=== PATIENT | male | born 1940 | race Caucasian/White ===

== ENCOUNTER 2017-03-18 10:13 | Emergency (ER) | payer MEDICARE ==
[~2017-03-18] VITALS: Ht 177.8 cm; Wt 111.1 kg
[~2017-03-18 10:13] MED LIST: LEVOFLOXACIN750 MG; PROAIR HFA INH8.5 GM
[2017-03-18] MEDS ORDERED: METOPROLOL TART25 MG PO (11:29)
[2017-03-18] MEDS ORDERED: FUROSEMIDE40 MG PO (11:29)
--- NOTE | 2017-03-18 12:42 | Diagnostic Imaging Report ---
PROCEDURE: A single AP view of the chest. COMPARISON: None. INDICATIONS: SHORTNESS OF BREATH FINDINGS: Lines/tubes: None. Lungs: The lungs are well inflated and clear. There is no evidence of pneumonia or pulmonary edema. Pleura: There is no pleural effusion or pneumothorax. Heart and mediastinum: The heart and the mediastinum are unremarkable. Bones: No acute bony abnormality. IMPRESSION: 1. No acute cardiopulmonary disease. Dictated by: Aguilar Henley M.D. on 03/18/2017 at 12:50 Electronically approved by: Aguilar Henley M.D. on 03/18/2017 at 12:50
[2017-03-18 13:07] LABS: BASOPHILS # (AUTO) 0.1 (0.0-0.1); BASOPHILS % 0.7 % (0.0-1.0); EOSINOPHILS # (AUTO) 0.3 (0.0-0.4); EOSINOPHILS % 3.3 % (0.0-6.0); HEMATOCRIT 48.9 % (38.2-49.6); HEMOGLOBIN 16.5 g/dL (14.0-18.0); LYMPHOCYTES # (AUTO) 2.4 (1.0-3.2); LYMPHOCYTES % 23.7 % (18.0-39.1); MEAN CORPUSCULAR HEMOGLOBIN 31.4 pg (28-32); MEAN CORPUSCULAR HGB CONC 33.7 g/dL (31-35); MONOCYTES # (AUTO) 0.7 (0.2-0.8); MONOCYTES % 6.8 % (4.4-11.3); NEUTROPHILS # (AUTO) 6.4 (2.1-6.9); NEUTROPHILS % 64.6 % (38.7-80.0); PLATELET COUNT 197 x10e3/uL (140-360); RED BLOOD COUNT 5.26 x10e6/uL (4.3-5.7)
[2017-03-18 13:36] LABS: ALANINE AMINOTRANSFERASE 25 IU/L (0-55); ALBUMIN 3.6 g/dL (3.5-5.0); ALBUMIN/GLOBULIN RATIO 0.9 (0.8-2.0); ALKALINE PHOSPHATASE 66 IU/L (40-150); ANION GAP 12.5 mmol/L (8-16); BLOOD UREA NITROGEN 41 mg/dL (7-26); BUN/CREATININE RATIO 37 (6-25); CALCIUM 9.4 mg/dL (8.4-10.2); CARBON DIOXIDE 27 mmol/L (22-29); CHLORIDE 108 mmol/L (98-107); CREATININE, SERUM 1.12 mg/dL (0.72-1.25); EST GLOMERULAR FILTRATION RATE > 60 ML/MIN (60-); GLUCOSE 96 mg/dL (74-118); POTASSIUM 4.5 mmol/L (3.5-5.1); SODIUM 143 mmol/L (136-145)
[2017-03-18] MEDS ORDERED: MORPHINE SULFATE 2 MG/ML SYR IV STA (14:45)
[2017-03-18] MEDS ORDERED: ONDANSETRON HCL INJ 2 MG/ML VIAL IV STA (14:45)
[2017-03-18] MEDS ORDERED: SODIUM CHLORIDE 0.9% 50ML 50 ML ONE (15:02)
[2017-03-18] MEDS ORDERED: IOPAMIDOL 370 MG/ML 200 ML INFUS..BTL INJ ONE (15:02)
--- NOTE | 2017-03-18 16:17 | Diagnostic Imaging Report ---
PROCEDURE: CT scan of the chest WITH intravenous contrast, using a pulmonary embolus protocol. TECHNIQUE: The chest was scanned utilizing a multidetector helical scanner from the lung apex through the level of the adrenal glands after the IV administration of 74 cc of Isovue 370. Coronal and sagittal multiplanar reformations were obtained. COMPARISON: None. INDICATIONS: SWELLING LEG FINDINGS: Lines/tubes: None. Pulmonary Arteries: Technically adequate examination with no evidence of pulmonary embolus. The main pulmonary artery is enlarged, measuring 3.4 cm in caliber. Lungs and Airways: Subsegmental atelectasis and scarlike opacities in the lung bases. No focal consolidation. No focal consolidation. Pleura: The pleural spaces are clear. Heart and mediastinum: No significant mediastinal, hilar or axillary lymphadenopathy is seen. The heart is mildly enlarged. No significant pericardial effusion. Atherosclerotic calcifications of the coronary arteries and thoracic aorta Soft tissues: Normal. Abdomen: Limited contrast-enhanced views of the upper abdomen. Presumed subcentimeter cyst of the right hepatic lobe (series 2, image 111). There are atherosclerotic calcifications of the abdominal aorta and its branches. Bones: Multilevel degenerative changes of the thoracic spine. IMPRESSION: No pulmonary embolus. Dictated by: Aguilar Henley M.D. on 03/18/2017 at 16:25 Electronically approved by: Aguilar Henley M.D. on 03/18/2017 at 16:25
[2017-03-18] MEDS ORDERED: CLINDAMYCIN PHOS 900MG/ D5W 50 50 ML IV STA (17:05)
[2017-03-18 17:42] VITALS: BP 153/69
== END 2017-03-18 17:55 | disposition home or self-care (01) ==
LOC: ER 10:13
DX: L03.116 Cellulitis of left lower limb (principal)
CPT/HCPCS: 36415; 71010; 71260; 80053; 83880; 85025; 85379; 87040; 93005; 93970; 96374; 99284; J2270; J2405; Q9967

== ENCOUNTER 2017-05-04 05:28 | Inpatient (IN) | payer MEDICARE ==
[~2017-05-04] VITALS: Ht 175.3 cm; Wt 108.0 kg
[~2017-05-04 05:28] MED LIST changes: +FUROSEMIDE40 MG PO; +METOPROLOL TART25 MG PO
--- OUTSIDE RECORDS SUMMARY | 2017-05-04 05:30 | XMS REPORT ---
Author Author [facility] Address Unknown Phone Unavailable Care Team Providers Care Auto Hauler Name Role Phone LUCA ROYAL Unavailable Unavailable Problems This patient has no known problems. Allergies, Adverse Reactions, Alerts This patient has no known allergies or adverse reactions. Medications This patient has no known medications. Results Test Description Test Time Test Comments Text Results Atomic Results Result Comments CT CHEST W [place] [address] Patient Name: MAYELA NAVA MR #: [id number] : 1940 Age/Sex: 76/M Req #: [id number] Adm Physician: Ordered by: ADRIEN KEYS HARNESS FITTER Report #: [id number] Location: ER Room/Bed: Procedure: [id number] CT/CT CHEST W Exam Date: 03/18/17 Exam Time: 1440 REPORT STATUS: Signed PROCEDURE: CT scan of the chest WITH intravenous contrast, using a pulmonary embolus protocol. TECHNIQUE: The chest was scanned utilizing a multidetector helical scanner from the lung apex through the level of the adrenal glands after the IV administration of 74 cc of Isovue 370. Coronal and sagittal multiplanar reformations were obtained. COMPARISON: None. INDICATIONS: SWELLING LEG FINDINGS: Lines/tubes: None. Pulmonary Arteries: Technically adequate examination with no evidence of pulmonary embolus. The main pulmonary artery is enlarged, measuring 3.4 cm in caliber. Lungs and Airways: Subsegmental atelectasis and scarlike opacities in the lung bases. No focal consolidation. No focal consolidation. Pleura: The pleural spaces are clear. Heart and mediastinum: No significant mediastinal, hilar or axillary lymphadenopathy is seen. The heart is mildly enlarged. No significant pericardial effusion. Atherosclerotic calcifications of the coronary arteries and thoracic aorta Soft tissues : Normal. Abdomen: Limited contrast-enhanced views of the upper abdomen. Presumed subcentimeter cyst of the right hepatic lobe (series 2, image 111). There are atherosclerotic calcifications of the abdominal aorta and its branches. Bones: Multilevel degenerative changes of the thoracic spine. IMPRESSION: No pulmonary embolus. Dictated by: Francisca Henley M.D. on 03/18/2017 at 16:25 Electronically approved by: Francisca Henley M.D. on 03/18/2017 at 16:25 Dictated By: FRANCISCA HENLEY MD 24 Transcribed By: ESTHER on 03/18/171624 COPY TO: ADRIEN KEYS NP CHEST SINGLE (NOT PORTABLE) [place] [address] Patient Name: MAYELA NAVA MR #: [id number] : 1940 Age/Sex: 76/M Req #: [id number] Adm Physician: Ordered by: LUCA ROYAL MD Report #: [id number] Location: ER Room/Bed: Procedure: [id number] DX/CHEST SINGLE (NOT PORTABLE) Exam Date: Exam Time: REPORT STATUS: Signed PROCEDURE: A single AP view of the chest. COMPARISON: None. INDICATIONS: SHORTNESS OF BREATH FINDINGS: Lines/tubes: None. Lungs: The lungs are well inflated and clear. There is no evidence of pneumonia or pulmonary edema. Pleura: There is no pleural effusion or pneumothorax. Heart and mediastinum: The heart and the mediastinum are unremarkable. Bones: No acute bony abnormality. IMPRESSION: 1. No acute cardiopulmonary disease. Dictated by: Francisca Henley M.D. on 03/18/2017 at 12:50 Electronically approved by: Francisca Henley M.D. on 03/18/2017 at 12:50 Dictated By: FRANCISCA HENLEY MD 1250 Transcribed By: ESTHER on 1250 COPY TO: LUCA ROYAL MD
[2017-05-04] MEDS ORDERED: ONDANSETRON HCL INJ 2 MG/ML VIAL IV STA (05:46)
[2017-05-04] MEDS ORDERED: PIPER-TAZ 3.375 GM 50 ML IV STA (05:46)
[2017-05-04] MEDS ORDERED: VANCOMYCIN 1GM/NS 250 ML 250 ML IV STA (05:46)
[2017-05-04] MEDS ORDERED: MORPHINE SULFATE 2 MG/ML SYR IV STA (05:46)
[2017-05-04] MEDS ORDERED: SODIUM CHLORIDE 0.9% 500ML 500 ML IV ONE (06:00)
[2017-05-04 06:36] LABS: BASOPHILS # (AUTO) 0.1 (0.0-0.1); EOSINOPHILS # (AUTO) 0.4 (0.0-0.4); HEMATOCRIT 44.9 % (38.2-49.6); HEMOGLOBIN 15.2 g/dL (14.0-18.0); LYMPHOCYTES # (AUTO) 1.2 (1.0-3.2); LYMPHOCYTES % 24.1 % (18.0-39.1); MEAN CORPUSCULAR HEMOGLOBIN 31.9 pg (28-32); MEAN CORPUSCULAR HGB CONC 33.9 g/dL (31-35); MEAN CORPUSCULAR VOLUME 94.3 fL (81-99); MONOCYTES # (AUTO) 0.7 (0.2-0.8); MONOCYTES % 12.8 % (4.4-11.3); NEUTROPHILS # (AUTO) 2.8 (2.1-6.9); NEUTROPHILS % 53.5 % (38.7-80.0); PLATELET COUNT 150 x10e3/uL (140-360); RED BLOOD COUNT 4.76 x10e6/uL (4.3-5.7); RED CELL DISTRIBUTION WIDTH 14.3 % (11.7-14.4)
[2017-05-04] MEDS ORDERED: PRAVASTATIN SOD20 MG PO (06:45)
[2017-05-04] MEDS ORDERED: LASIX20 MG PO (06:46)
[2017-05-04 06:47] LABS: INR 1.1; PROTHROMBIN TIME 13.4 seconds (11.9-14.5)
[2017-05-04 06:48] LABS: PARTIAL THROMBOPLASTIN TIME 27.3 seconds (23.8-35.5)
[2017-05-04 06:59] LABS: ALANINE AMINOTRANSFERASE 18 IU/L (0-55); ALBUMIN 3.6 g/dL (3.5-5.0); ALBUMIN/GLOBULIN RATIO 1.2 (0.8-2.0); ALKALINE PHOSPHATASE 67 IU/L (40-150); ANION GAP 12.2 mmol/L (8-16); BLOOD UREA NITROGEN 18 mg/dL (7-26); BUN/CREATININE RATIO 23 (6-25); CALCIUM 8.5 mg/dL (8.4-10.2); CARBON DIOXIDE 23 mmol/L (22-29); CHLORIDE 108 mmol/L (98-107); CREATINE KINASE 36 IU/L (30-200); CREATININE, SERUM 0.79 mg/dL (0.72-1.25); EST GLOMERULAR FILTRATION RATE > 60 ML/MIN (60-); GLUCOSE 93 mg/dL (74-118); MAGNESIUM 1.8 MG/DL (1.3-2.1); POTASSIUM 4.2 mmol/L (3.5-5.1); SODIUM 139 mmol/L (136-145)
[2017-05-04] MEDS: SODIUM CHLORIDE 0.9% 1000ML 1,000 ML IV SCH ×2 (07:15→10:35)
[2017-05-04] MEDS ORDERED: TETANUS/DIPHTHERIA TOX ADULT 0.5 ML SYR IM ONE (07:30)
--- NOTE | 2017-05-04 08:45 | Diagnostic Imaging Report ---
EXAMINATION: Chest, CHEST SINGLE (PORTABLE) INDICATION: Chest pain COMPARISON: None FINDINGS: LINES: None. Heart: Normal cardiac silhouette. Vascular: The pulmonary vasculature is within normal limits. Mediastinum: No mediastinal, hilar, or axillary mass or lymphadenopathy. Lungs: No parenchymal mass. No focal consolidation. Bibasilar atelectasis. Pleura: No pleural effusion. No pneumothorax. Bones: No acute osseous abnormality. Degenerative changes of the thoracic spine. Soft tissues: Normal. Impression: No acute radiographic abnormality. Signed by: Dr. Jarrett Villegas M.D. on 05/04/2017 8:42 AM
--- NOTE | 2017-05-04 09:01 | Diagnostic Imaging Report ---
Exam: Maxillofacial CT with IV contrast History:Left periorbital/facial cellulitis, preauricular node versus abscess. Comparison studies: None Technique: Axial images were obtained through the facial region. Coronal and sagittal images reconstructed from the axial data. Intravenous contrast: 100 cc of Omnipaque 300. Findings: Soft tissues: Inflammatory stranding in the left periorbital preseptal soft tissues with overlying skin thickening compatible with cellulitis. No associated post septal/intraorbital inflammatory changes. No abscess. Reactive enhancing left intraparotid lymph node measures 1.1 cm. Orbits: Globes: Intact. Bilateral lens replacements related to previous cataract surgery. Extra or intraconal abnormalities: None. Paranasal sinuses: Partially opacified left sphenoid sinus with circumferential mucosal thickening and small nonspecific secretions. Remaining sinuses are clear. Sinus drainage pathways are patent. Bones: No acute fractures or destructive lytic or blastic lesions. Included cervical spine: Surgical changes of anterior cervical discectomy and fusion with solid interbody fusion at C4-C5. The C5 and C6 vertebral bodies are fused. There is multilevel advanced facet arthrosis. Multilevel foraminal stenosis due to uncovertebral facet arthrosis (moderate left at C2-C3, moderate bilaterally at C3-C4 mild bilaterally at C5-C6 and severe right and likely moderate left at the partially imaged C6-C7 level). Incidental findings: Nonstenotic calcified atherosclerosis in the cervical carotid bulbs and in the carotid siphons. Anatomical variant retropharyngeal course of the cervical internal carotid arteries. Impacted cerumen in the left external auditory canal. Minimal opacification at the bilateral mastoid tips. IMPRESSION: 1. Left preseptal periorbital cellulitis. No postseptal/intraorbital inflammatory changes or abscess. 2. Mildly enlarged reactive left parotid/preauricular lymph node. 3. Nonspecific inflammatory changes in the left sphenoid sinus. 4. Surgical and degenerative changes in the cervical spine. Signed by: Dr. Joseph Espinosa M.D. on 05/04/2017 8:58 AM
[2017-05-04] MEDS: ASPIRIN 325 MG TAB EC PO SCH (09:35)
[2017-05-04] MEDS: MORPHINE SULFATE 2 MG/ML SYR IV PRN ×3 (10:35→21:29)
[2017-05-04 10:36] VITALS: BP 179/72
[2017-05-04] MEDS ORDERED: SODIUM CHLORIDE 0.9% 50ML 50 ML ONE (10:56)
[2017-05-04] MEDS ORDERED: IOPAMIDOL 370 MG/ML 200 ML INFUS..BTL INJ ONE (10:57)
[2017-05-04 11:24] LABS: BILIRUBIN,URINE NEGATIVE (NEGATIVE); CLARITY,URINE CLEAR (CLEAR); COLOR,URINE YELLOW (YELLOW); KETONES,URINE NEGATIVE (NEGATIVE); LEUKOCYTE ESTERASE ,URINE NEGATIVE (NEGATIVE); NITRITE,URINE NEGATIVE (NEGATIVE); PROTEIN,URINE DIPSTICK NEGATIVE (NEGATIVE); URINE UROBILINOGEN 0.2 mg/dL (0.2 - 1)
[2017-05-04] MEDS ORDERED: BUPIVACAINE 0.25% 30ML SDV INJ ONE (11:28)
[2017-05-04 11:49] LABS: BACTERIA,URINE FEW /HPF; EPITHELIAL CELLS,URINE RARE /LPF
[2017-05-04] MEDS: PIPER-TAZ 3.375 GM 50 ML IV SCH ×2 (11:55→17:19)
[2017-05-04 15:41] LABS: CHOL/HDL RATIO 4.2 (3.9-4.7)
[2017-05-04] MEDS: METOPROLOL TARTRATE 25 MG TAB PO SCH (16:24)
--- NOTE | 2017-05-04 16:25 | History and Physical ---
PRIMARY CARE PHYSICIAN: None. CHIEF COMPLAINT: Left eye swelling and redness. HISTORY OF PRESENT ILLNESS: This is a 76-year-old man with a history of myocardial infarction, now developing left eye region swelling and pain. Therefore, he came to the hospital. He was found to have left preseptal and periorbital cellulitis. Admitted for further evaluation and management. PAST MEDICAL HISTORY: Myocardial infarction without any stents. PAST SURGICAL HISTORY: Left knee surgery, cholecystectomy, appendectomy, eye surgery, hand surgery, shoulder surgery. ALLERGIES: PER ELECTRONIC MEDICAL RECORD. FAMILY HISTORY/SOCIAL HISTORY: The patient is . He has 3 children. No alcohol, illicits or cigarettes. MEDICATIONS: Per electronic medical record. REVIEW OF SYSTEMS: Denies any dizziness. PHYSICAL EXAMINATION VITAL SIGNS: Have been reviewed. GENERAL: A tired-appearing man resting in bed. HEENT: Anicteric. Pupils are responsive to light. No oral lesions. He has erythema of the left superior region surrounding the eye with some edema, tenderness, and warmth. CARDIOVASCULAR: Normal S1 and S2. LUNGS: Moderate breath sounds. ABDOMEN: Soft, nontender, nondistended. EXTREMITIES: He has trace edema of the right leg. SKIN: Dry. PSYCHIATRIC: Flat affect. NEUROLOGIC: Alert, appropriate, moving all extremities. LABS: Reviewed. MEDICATIONS: Reviewed. ASSESSMENT AND PLAN: This is a 76-year-old man. 1. Left preseptal, periorbital cellulitis. We will continue broad-spectrum antibiotics and follow up cultures. The patient is currently on Zosyn and vancomycin. Will obtain vancomycin trough 1 hour before the 3rd dose. 2. Obesity. Scan for diabetes. 3. Hypertension. Restart home medications. 4. Peripheral edema. He has Lasix on board from home. Will continue. Will discontinue his IV fluids. 5. Prophylaxis: Will use SCD and Pepcid. 6. Disposition: Monitor closely. Follow up cultures. Job#: [id number]
[2017-05-04] MEDS ORDERED: VANCOMYCIN 1GM/NS 250 ML 250 ML IV SCH (18:00)
[2017-05-04 20:00] VITALS: BP 175/74
[2017-05-04] MEDS ORDERED: NON-FORMULARY MEDICATION (Pravastatin Sodium 20 MG) PO SCH (21:00)
[2017-05-04] MEDS: PRAVASTATIN 20 MG TAB PO SCH (21:29)
[2017-05-05] VITALS (7 sets, daily range): BP systolic 133–192; BP diastolic 59–81
[2017-05-05] MEDS ORDERED: SODIUM CHLORIDE 0.9% 250ML 250 ML ONE (00:02)
[2017-05-05] MEDS: PIPER-TAZ 3.375 GM 50 ML IV SCH ×3 (00:05→13:00)
[2017-05-05] MEDS: MORPHINE SULFATE 2 MG/ML SYR IV PRN ×2 (02:25→06:51)
[2017-05-05] MEDS: VANCOMYCIN 1GM/NS 250 ML 250 ML IV SCH ×2 (04:12→09:38)
[2017-05-05 06:36] LABS: BASOPHILS # (AUTO) 0.1 (0.0-0.1); EOSINOPHILS # (AUTO) 0.3 (0.0-0.4); EOSINOPHILS % 6.4 % (0.0-6.0); HEMATOCRIT 40.9 % (38.2-49.6); HEMOGLOBIN 13.4 g/dL (14.0-18.0); LYMPHOCYTES % 20.1 % (18.0-39.1); MEAN CORPUSCULAR HEMOGLOBIN 31.5 pg (28-32); MEAN CORPUSCULAR HGB CONC 32.8 g/dL (31-35); MEAN CORPUSCULAR VOLUME 96.2 fL (81-99); MONOCYTES # (AUTO) 0.6 (0.2-0.8); MONOCYTES % 11.9 % (4.4-11.3); NEUTROPHILS # (AUTO) 3.1 (2.1-6.9); NEUTROPHILS % 60.2 % (38.7-80.0); PLATELET COUNT 124 x10e3/uL (140-360); RED BLOOD COUNT 4.25 x10e6/uL (4.3-5.7); RED CELL DISTRIBUTION WIDTH 14.5 % (11.7-14.4)
[2017-05-05 07:01] LABS: ALANINE AMINOTRANSFERASE 26 IU/L (0-55); ALBUMIN 3.2 g/dL (3.5-5.0); ALBUMIN/GLOBULIN RATIO 1.3 (0.8-2.0); ALKALINE PHOSPHATASE 59 IU/L (40-150); ANION GAP 9.9 mmol/L (8-16); BLOOD UREA NITROGEN 15 mg/dL (7-26); BUN/CREATININE RATIO 19 (6-25); CARBON DIOXIDE 25 mmol/L (22-29); CHLORIDE 104 mmol/L (98-107); EST GLOMERULAR FILTRATION RATE > 60 ML/MIN (60-); GLUCOSE 90 mg/dL (74-118); POTASSIUM 3.9 mmol/L (3.5-5.1); SODIUM 135 mmol/L (136-145)
[2017-05-05] MEDS: FUROSEMIDE 20 MG TAB PO SCH (09:38)
[2017-05-05] MEDS: ASPIRIN 325 MG TAB EC PO SCH (09:38)
[2017-05-05] MEDS: METOPROLOL TARTRATE 25 MG TAB PO SCH ×2 (09:40→17:48)
[2017-05-05] MEDS: HYDROMORPHONE 2MG/ML INJ IV PRN ×3 (11:06→23:23)
[2017-05-05] MEDS ORDERED: ACYCLOVIR 200 MG CAP PO SCH (13:00)
[2017-05-05] MEDS ORDERED: VANCOMYCIN 1GM/NS 250 ML 250 ML IV SCH (16:00)
--- NOTE | 2017-05-05 18:01 | Consultation ---
DATE OF CONSULTATION: May 05, 2017 REASON FOR CONSULTATION: Evaluate and assist in the treatment of the patient with left facial lesions. Information is gathered from the current medical record. I interviewed the patient at the bedside. He is a 76-year-old male with hypertension. He has had left knee arthroplasty. There is report of myocardial infarction. He has had cholecystectomy, appendectomy, eye surgery, hand surgery, and shoulder surgery in the past. He had chickenpox in childhood. About 3-4 days ago, he started feeling some burning pain in the left forehead. Subsequently, he has developed "blisters" with erythema affecting the forehead and spreading to the left upper eyelid. He denies any trauma or fevers. He has not had similar lesions in the past. He has been admitted to the hospital for further evaluation and treatment. MEDICAL HISTORY: As reported above. There is no report of kidney disease, liver disease or CVA. SOCIAL HISTORY: He quit smoking more than 30 years ago. He denies alcohol or other forms of recreational drug use. FAMILY HISTORY: Noncontributory to his current hospitalization. ALLERGIES: HE HAS NO KNOWN MEDICATION ALLERGIES. He is started on treatment with vancomycin, Zosyn and acyclovir. The rest of his medications are per the medication administration report. REVIEW OF SYSTEMS: The patient is alert. His sensorium is clear. He reports blurred vision in the left eye. There is a burning pain and itching involving the left side of his forehead. The left eyelid with swelling and closing. Otherwise, no headache. No neck stiffness. No sore throat. No cough or dyspnea. No chest or abdominal pain. No nausea, vomiting or diarrhea. No frequency, urgency or dysuria. He reports a history of prostate enlargement. PHYSICAL EXAMINATION GENERAL: He is a pleasant adult male. He is alert, responsive, coherent. He appears nontoxic and is in no acute distress. VITALS: Maximum temperature recorded since admission is 97.9 degrees Fahrenheit. He is hemodynamically stable. HEENT: There are vesicular lesions involving the left side of his face and scalp with edema of the left eyelid. There are scars around the eyebrow, the left eyebrow area. There is no gross pallor. No obvious icterus. No oropharyngeal lesions. NECK: Supple. CHEST: Symmetric. Lungs are clear. HEART: Sounds are regular without significant murmur. ABDOMEN: Full, soft and nontender with normal bowel sounds. No acute erythema of his extremities. His white count is 5.1 on May 04, 2017, and 5.1 currently. Hemoglobin 13.4 and platelet count 124,000 down from 150,000 on May 04, 2017. Differential on the white count appear unremarkable. His serum creatinine is 0.8 currently. Blood cultures from May 04, 2017, are reported negative. Urine culture from May 04, 2017, shows no growth at [address] scan of the facial area shows left preseptal periorbital cellulitis. No postseptal or intraorbital inflammatory changes. There is mildly enlarged reactive left parity preauricular lymph node. There are surgical and degenerative changes in the cervical spine. It should be noted that the patient has a history of C-spine surgery. IMPRESSION: This 76-year-old male has shingles in the left upper facial distribution. Superimposed bacterial cellulitis cannot be excluded. Usually, this is due to Staphylococcus aureus or streptococcus. I suggest discontinue Zosyn. Continue acyclovir and vancomycin. Add steroid eye drops. Monitor temperature, CBC and renal function. Monitor clinical response to treatment. Monitor vancomycin serum levels. I have discussed the findings and treatment with the patient at the bedside. I have discussed the patient with the primary physician, who I thank for the consult, and the opportunity to participate in the patient's care. Job#: [id number] TIFFANY
[2017-05-05] MEDS: ACYCLOVIR SODIUM 500 MG in SODIUM CHLORIDE 0.9% 100 ML IV SCH (18:29)
[2017-05-05] MEDS ORDERED: PNEUMOCOCCAL VACCINE POLYVALENT 23 MCG/0.5 ML VIAL IM ONE (21:00)
[2017-05-05] MEDS ORDERED: INFLUENZA VIRUS VAC SPLIT INJ 0.5 ML SYR IM ONE (21:00)
[2017-05-05] MEDS: PREDNISOLONE ACETATE 1% OPTH SUSP 5 ML BTL OP SCH (21:04)
[2017-05-05] MEDS: PRAVASTATIN 20 MG TAB PO SCH (21:04)
[2017-05-05] MEDS: ONDANSETRON HCL INJ 2 MG/ML VIAL IV PRN (23:23)
[2017-05-06] VITALS: BP 143/63
[2017-05-06] MEDS: ACYCLOVIR SODIUM 500 MG in SODIUM CHLORIDE 0.9% 100 ML IV SCH ×3 (02:05→18:10)
[2017-05-06 04:00] VITALS: BP 153/70
[2017-05-06] MEDS: HYDROMORPHONE 2MG/ML INJ IV PRN ×4 (05:08→20:07)
[2017-05-06 07:45] VITALS: BP 174/74
[2017-05-06] MEDS: METOPROLOL TARTRATE 25 MG TAB PO SCH ×2 (08:00→15:45)
[2017-05-06] MEDS: FUROSEMIDE 20 MG TAB PO SCH (08:00)
[2017-05-06] MEDS: PREDNISOLONE ACETATE 1% OPTH SUSP 5 ML BTL OP SCH ×3 (08:00→20:06)
[2017-05-06] MEDS: ASPIRIN 325 MG TAB EC PO SCH (08:00)
[2017-05-06] MEDS: VANCOMYCIN 1GM/NS 250 ML 250 ML IV SCH ×2 (09:21→20:06)
[2017-05-06] MEDS: HYDRALAZINE HCL 20 MG/ML VIAL IV PRN (11:49)
[2017-05-06] MEDS: AMLODIPINE BESYLATE 5 MG TAB PO SCH (15:45)
[2017-05-06] MEDS: GABAPENTIN 400 MG CAP PO SCH ×2 (15:45→20:06)
[2017-05-06 15:53] VITALS: BP 200/81
[2017-05-06 17:08] VITALS: BP 129/57
--- NOTE | 2017-05-06 19:03 | Progress Note ---
DATE: May 06, 2017 The patient is fairly stable. He is in no distress. He feels his throat is getting scratchy. He is not coughing much currently. No dyspnea at rest. No vomiting. No diarrhea. No adverse medication reaction reported. PHYSICAL EXAMINATION VITALS: In the past 24 hours, his maximum temperature was up to 97.3 degrees Fahrenheit. He is hemodynamically stable. HEENT: There are erythematous lesions with evolving scabs involving the left half of his face and scalp. There is no gross pallor. No obvious icterus. No oropharyngeal lesions. NECK: Supple. CHEST: Symmetric. Lungs are clear. HEART: Sounds are regular without significant murmur. ABDOMEN: Full, soft and nontender. Bowel sounds are normal. EXTREMITIES: No acute erythema of his extremities. His white count on May 05, 2017, was 5.1. His creatinine is 0.8. His blood cultures are negative. Urine culture is negative. IMPRESSION: He is on treatment for herpes zoster ophthalmicus involving the left facial area. There may be superimposed bacterial infections/cellulitis. He is afebrile and stable. I suggest continue current treatment. Monitor clinical response to treatment. Job#: [id number] TIFFANY
[2017-05-06 20:00] VITALS: BP 152/69
[2017-05-06] MEDS: SIMVASTATIN 20 MG TAB PO SCH (20:06)
[2017-05-06] MEDS: ONDANSETRON HCL INJ 2 MG/ML VIAL IV PRN (20:07)
--- NOTE | 2017-05-06 20:54 | Diagnostic Imaging Report ---
A single frontal view of the chest. HISTORY: PICC LINE PLACEMENT COMPARISON: Chest radiograph May 04, 2017 DISCUSSION: Portable technique, limits sensitivity of the exam. Soft tissue attenuation partially limits sensitivity of the exam. Tubes/Lines: Interval placement of a right upper extremity PICC line, the distal tip curves slightly to the left. Lungs and pleura: Low lung volumes result in bibasilar vascular crowding, accentuation of the pulmonary interstitial markings, central pulmonary vasculature, and the cardiac silhouette. Allowing for these limitations, the findings are as follows: No evidence of a consolidative pneumonia or pulmonary alveolar edema. No definite pleural effusion or pneumothorax is identified. Heart and mediastinum: The cardiac silhouette and central pulmonary vascular appears prominent. Bones: No acute osseous lesion is identified, given this limited exam. IMPRESSION: Status post placement of a right upper summary PICC line, the tip of the catheter to deviate towards the expected location of the proximal azygos vein. Discussed with Oneil Boss via phone on May 06, 2017 at 2050. The provider verbalizes an understanding. Signed by: Basil Corrigan.Shelly., M.M.M. on 05/06/2017 8:50 PM
--- NOTE | 2017-05-06 21:51 | Diagnostic Imaging Report ---
CHEST XRAY LINE PLACEMENT, 05/06/2017 9:02 PM Technique: CHEST XRAY LINE PLACEMENT Comparison: 05/06/2017 Clinical history: Line placement Findings: Limited portable technique. Impression: 1. Lines/Tubes: Right PICC adjusted with tip projecting over the proximal SVC. 2. Otherwise stable with enlarged cardiomediastinal silhouette and bibasilar vascular crowding/atelectasis Signed by: Dr Katelyn Villaseñor MD on 05/06/2017 9:47 PM
[2017-05-07] VITALS (7 sets, daily range): BP systolic 120–160; BP diastolic 57–72
[2017-05-07] MEDS: ACYCLOVIR SODIUM 500 MG in SODIUM CHLORIDE 0.9% 100 ML IV SCH ×3 (01:26→18:42)
[2017-05-07] MEDS: ONDANSETRON HCL INJ 2 MG/ML VIAL IV PRN ×3 (03:46→16:45)
[2017-05-07] MEDS: HYDROMORPHONE 2MG/ML INJ IV PRN (03:46)
[2017-05-07 06:33] LABS: BASOPHILS % 0.5 % (0.0-1.0); EOSINOPHILS # (AUTO) 0.2 (0.0-0.4); EOSINOPHILS % 2.3 % (0.0-6.0); HEMATOCRIT 39.5 % (38.2-49.6); HEMOGLOBIN 13.1 g/dL (14.0-18.0); LYMPHOCYTES # (AUTO) 1.1 (1.0-3.2); LYMPHOCYTES % 14.4 % (18.0-39.1); MEAN CORPUSCULAR HEMOGLOBIN 31.7 pg (28-32); MEAN CORPUSCULAR HGB CONC 33.2 g/dL (31-35); MEAN CORPUSCULAR VOLUME 95.6 fL (81-99); MONOCYTES # (AUTO) 0.6 (0.2-0.8); MONOCYTES % 8.7 % (4.4-11.3); NEUTROPHILS # (AUTO) 5.4 (2.1-6.9); NEUTROPHILS % 73.6 % (38.7-80.0); PLATELET COUNT 113 x10e3/uL (140-360); RED BLOOD COUNT 4.13 x10e6/uL (4.3-5.7); RED CELL DISTRIBUTION WIDTH 14.1 % (11.7-14.4)
[2017-05-07 07:03] LABS: ANION GAP 10.6 mmol/L (8-16); BLOOD UREA NITROGEN 16 mg/dL (7-26); BUN/CREATININE RATIO 21 (6-25); CALCIUM 8.2 mg/dL (8.4-10.2); CARBON DIOXIDE 27 mmol/L (22-29); CHLORIDE 102 mmol/L (98-107); CREATININE, SERUM 0.77 mg/dL (0.72-1.25); EST GLOMERULAR FILTRATION RATE > 60 ML/MIN (60-); GLUCOSE 173 mg/dL (74-118); MAGNESIUM 1.7 MG/DL (1.3-2.1); POTASSIUM 3.6 mmol/L (3.5-5.1); SODIUM 136 mmol/L (136-145)
[2017-05-07] MEDS ORDERED: HYDROMORPHONE 1MG/1ML INJ IV PRN ×2 (08:30→08:45)
[2017-05-07] MEDS ORDERED: TRAMADOL/APAP 37.5MG-325MG TAB PO PRN (08:45)
[2017-05-07] MEDS: FUROSEMIDE 20 MG TAB PO SCH (08:57)
[2017-05-07] MEDS: ASPIRIN 325 MG TAB EC PO SCH (08:57)
[2017-05-07] MEDS: METOPROLOL TARTRATE 25 MG TAB PO SCH ×2 (08:57→16:45)
[2017-05-07] MEDS: AMLODIPINE BESYLATE 5 MG TAB PO SCH (08:57)
[2017-05-07] MEDS: PREDNISOLONE ACETATE 1% OPTH SUSP 5 ML BTL OP SCH ×3 (08:57→21:05)
[2017-05-07] MEDS: GABAPENTIN 400 MG CAP PO SCH ×3 (08:57→21:05)
[2017-05-07] MEDS: HYDROMORPHONE 1MG/1ML INJ IV PRN ×2 (10:54→16:45)
[2017-05-07] MEDS ORDERED: VANCOMYCIN HCL 1.5 GM in SODIUM CHLORIDE 0.9% 250ML 300 ML IV SCH (11:00)
[2017-05-07] MEDS: TRAMADOL/APAP 37.5MG-325MG TAB PO PRN ×2 (13:25→20:30)
[2017-05-07] MEDS: CALCIUM CARBONATE 500 MG CHEWABLE TABS PO SCH (16:45)
[2017-05-07] MEDS: SIMVASTATIN 20 MG TAB PO SCH (21:05)
[2017-05-08] VITALS (8 sets, daily range): BP systolic 147–177; BP diastolic 61–77
[2017-05-08] MEDS: HYDROMORPHONE 1MG/1ML INJ IV PRN ×4 (00:35→23:47)
[2017-05-08] MEDS: VANCOMYCIN HCL 1.5 GM in SODIUM CHLORIDE 0.9% 250ML 300 ML IV SCH ×2 (00:35→14:34)
[2017-05-08] MEDS: ACYCLOVIR SODIUM 500 MG in SODIUM CHLORIDE 0.9% 100 ML IV SCH ×3 (02:43→18:30)
[2017-05-08] MEDS: TRAMADOL/APAP 37.5MG-325MG TAB PO PRN ×3 (04:13→19:46)
[2017-05-08 06:09] LABS: BASOPHILS # (AUTO) 0.1 (0.0-0.1); EOSINOPHILS # (AUTO) 0.4 (0.0-0.4); EOSINOPHILS % 6.8 % (0.0-6.0); HEMATOCRIT 39.5 % (38.2-49.6); HEMOGLOBIN 12.9 g/dL (14.0-18.0); LYMPHOCYTES # (AUTO) 1.7 (1.0-3.2); LYMPHOCYTES % 27.9 % (18.0-39.1); MEAN CORPUSCULAR HEMOGLOBIN 31.5 pg (28-32); MEAN CORPUSCULAR HGB CONC 32.7 g/dL (31-35); MEAN CORPUSCULAR VOLUME 96.6 fL (81-99); MONOCYTES # (AUTO) 0.8 (0.2-0.8); MONOCYTES % 13.4 % (4.4-11.3); NEUTROPHILS # (AUTO) 3.1 (2.1-6.9); NEUTROPHILS % 50.6 % (38.7-80.0); PLATELET COUNT 116 x10e3/uL (140-360); RED BLOOD COUNT 4.09 x10e6/uL (4.3-5.7)
[2017-05-08 06:26] LABS: ANION GAP 11.1 mmol/L (8-16); BLOOD UREA NITROGEN 14 mg/dL (7-26); BUN/CREATININE RATIO 19 (6-25); CARBON DIOXIDE 27 mmol/L (22-29); CHLORIDE 105 mmol/L (98-107); CREATININE, SERUM 0.75 mg/dL (0.72-1.25); EST GLOMERULAR FILTRATION RATE > 60 ML/MIN (60-); GLUCOSE 100 mg/dL (74-118); POTASSIUM 4.1 mmol/L (3.5-5.1); SODIUM 139 mmol/L (136-145)
[2017-05-08] MEDS: METOPROLOL TARTRATE 25 MG TAB PO SCH ×2 (09:18→16:55)
[2017-05-08] MEDS: AMLODIPINE BESYLATE 5 MG TAB PO SCH (09:18)
[2017-05-08] MEDS: FUROSEMIDE 20 MG TAB PO SCH (09:18)
[2017-05-08] MEDS: CALCIUM CARBONATE 500 MG CHEWABLE TABS PO SCH ×2 (09:18→16:55)
[2017-05-08] MEDS: GABAPENTIN 400 MG CAP PO SCH ×3 (09:18→21:02)
[2017-05-08] MEDS: PREDNISOLONE ACETATE 1% OPTH SUSP 5 ML BTL OP SCH ×3 (09:18→20:59)
[2017-05-08] MEDS: ASPIRIN 325 MG TAB EC PO SCH (09:18)
--- NOTE | 2017-05-08 15:11 | Progress Note ---
DATE: May 08, 2017 The patient is fairly stable. He is in no distress. He sees significant improvement in the lesions on his forehead. The edema around his left eye is subsiding. He offers no new systemic complaints. OBJECTIVE VITALS: His maximum temperature in the past 24 hours was up to 98.7 degrees Fahrenheit. He is stable hemodynamically. HEENT: He has no pallor. There is no icterus. No oropharyngeal lesions. NECK: Supple. CHEST: Symmetric. Lungs are clear. The heart sounds are regular without significant murmur. ABDOMEN: Soft. Bowel sounds are present. EXTREMITIES: There is no acute erythema of the extremities. LABS: His white count is 6.2. His creatinine is 0.7. There are no new culture reports. IMPRESSION: He has herpes zoster ophthalmicus affecting the left side of his face. There may be superimposed bacterial cellulitis. Clinically, there is much improvement. The lesions are scabbing. The edema involving his left eye has significantly subsided. I suggest to continue acyclovir for 14 days. Continue steroid eye drops. IV vancomycin can be discontinued. The patient can be switched to doxycycline 100 mg p.o. b.i.d. to continue until he completes the 14 days of treatment with acyclovir. I have discussed the patient with the nursing staff. I will discuss the patient with the primary team. Job#: [id number]
--- NOTE | 2017-05-08 16:13 | Progress Note ---
DATE: May 07, 2017 The patient is fairly stable. He is in no distress. He is not coughing currently. No dyspnea at rest. No vomiting. No diarrhea. He sees the pain in the left side of his face and scalp is subsiding. OBJECTIVE VITALS: His maximum temperature in the previous 24 hours was up to 97.6 degrees Fahrenheit. He is stable hemodynamically. SKIN: The lesions on the left side of his upper face and scalp are scabbing. The erythema is resolving. HEENT: There is no gross pallor. No obvious icterus. NECK: Supple. CHEST: Symmetric. Lungs are clear. HEART: Sounds are regular without significant murmur. ABDOMEN: Soft. Bowel sounds are present. EXTREMITIES: No acute erythema of his extremities. LABS: His white count is 7.2. His creatinine is 0.7. Vancomycin trough up to 8.8. There are no significant positive cultures. IMPRESSION: He is on treatment for herpes zoster ophthalmicus. There may be bacterial cellulitis superimposed. The patient is improving. I suggest continued current management. Continue to monitor clinical response to treatment. Job#: [id number] GEORGE
[2017-05-08] MEDS ORDERED: ARICEPT5 MG PO (20:27)
[2017-05-08] MEDS ORDERED: QUETIAPINE FUMA25 MG PO (20:27)
[2017-05-08] MEDS ORDERED: MIRTAZAPINE15 MG PO (20:27)
[2017-05-08] MEDS: SIMVASTATIN 20 MG TAB PO SCH (21:02)
[2017-05-08] MEDS: HYDRALAZINE HCL 20 MG/ML VIAL IV PRN (21:02)
[2017-05-08] MEDS: ONDANSETRON HCL INJ 2 MG/ML VIAL IV PRN (23:47)
[2017-05-09] VITALS: BP 135/54
[2017-05-09] MEDS: VANCOMYCIN HCL 1.5 GM in SODIUM CHLORIDE 0.9% 250ML 300 ML IV SCH ×2 (00:15→12:58)
[2017-05-09] MEDS: ACYCLOVIR SODIUM 500 MG in SODIUM CHLORIDE 0.9% 100 ML IV SCH ×2 (02:09→09:30)
[2017-05-09] MEDS: TRAMADOL/APAP 37.5MG-325MG TAB PO PRN (03:01)
[2017-05-09 03:26] VITALS: BP 135/54
[2017-05-09 04:00] VITALS: BP 144/67
[2017-05-09 06:21] LABS: BASOPHILS # (AUTO) 0.1 (0.0-0.1); BASOPHILS % 1.1 % (0.0-1.0); EOSINOPHILS # (AUTO) 0.5 (0.0-0.4); EOSINOPHILS % 7.4 % (0.0-6.0); HEMOGLOBIN 12.8 g/dL (14.0-18.0); LYMPHOCYTES # (AUTO) 1.6 (1.0-3.2); LYMPHOCYTES % 24.6 % (18.0-39.1); MEAN CORPUSCULAR HEMOGLOBIN 31.2 pg (28-32); MEAN CORPUSCULAR HGB CONC 32.8 g/dL (31-35); MEAN CORPUSCULAR VOLUME 95.1 fL (81-99); MONOCYTES # (AUTO) 0.7 (0.2-0.8); MONOCYTES % 11.6 % (4.4-11.3); NEUTROPHILS # (AUTO) 3.5 (2.1-6.9); PLATELET COUNT 129 x10e3/uL (140-360); RED CELL DISTRIBUTION WIDTH 13.9 % (11.7-14.4)
[2017-05-09 07:02] LABS: BLOOD UREA NITROGEN 13 mg/dL (7-26); BUN/CREATININE RATIO 18 (6-25); CALCIUM 8.3 mg/dL (8.4-10.2); CARBON DIOXIDE 29 mmol/L (22-29); CHLORIDE 105 mmol/L (98-107); CREATININE, SERUM 0.71 mg/dL (0.72-1.25); EST GLOMERULAR FILTRATION RATE > 60 ML/MIN (60-); GLUCOSE 91 mg/dL (74-118); SODIUM 139 mmol/L (136-145)
[2017-05-09 08:25] VITALS: BP 175/74
[2017-05-09] MEDS: PREDNISOLONE ACETATE 1% OPTH SUSP 5 ML BTL OP SCH ×2 (08:50→15:00)
[2017-05-09] MEDS: FUROSEMIDE 20 MG TAB PO SCH (08:50)
[2017-05-09] MEDS: ASPIRIN 325 MG TAB EC PO SCH (08:50)
[2017-05-09] MEDS: GABAPENTIN 400 MG CAP PO SCH ×2 (08:50→15:00)
[2017-05-09] MEDS: CALCIUM CARBONATE 500 MG CHEWABLE TABS PO SCH ×2 (08:50→16:55)
[2017-05-09] MEDS: METOPROLOL TARTRATE 25 MG TAB PO SCH ×2 (08:50→16:55)
[2017-05-09] MEDS ORDERED: SODIUM CHLORIDE 0.9% 250ML 250 ML ONE (09:22)
[2017-05-09] MEDS: HYDROMORPHONE 1MG/1ML INJ IV PRN ×2 (09:33→15:17)
[2017-05-09] MEDS ORDERED: Tramadol/Apap 37.5MG-325MG PO (12:58)
[2017-05-09] MEDS ORDERED: Calcium Carbonate 500MG Chew PO (12:58)
[2017-05-09] MEDS ORDERED: PREDNISOLONE ACE5 ML OP (12:58)
[2017-05-09] MEDS ORDERED: VALACYCLOVIR500 MG PO (12:58)
[2017-05-09] MEDS ORDERED: NORVASC5 MG PO (12:58)
[2017-05-09] MEDS ORDERED: GABAPENTIN400 MG PO (12:58)
[2017-05-09] MEDS ORDERED: ASPIRIN ENTERI325 MG PO (12:58)
[2017-05-09] MEDS ORDERED: DOXYCYCLINE HY100 MG PO (12:58)
[2017-05-09] MEDS ORDERED: AZITHROMYCIN 250 MG TAB PO ONE (13:00)
[2017-05-09] MEDS ORDERED: [UNRECOGNIZED DRUG - OTHER] OP (13:03)
[2017-05-09] MEDS ORDERED: AZITHROMYCIN250 MG PO ×2 (13:04→13:06)
--- NOTE | 2017-05-09 13:18 | Progress Note ---
DATE: May 09, 2017 The patient is alert and responsive. He is complaining of a sore throat. He is also coughing up yellowish sputum. No fevers. No chills or sweats. No nausea, vomiting, or diarrhea. No other systemic complaints reported. No overt medication reaction reported. OBJECTIVE VITALS: In the past 24 hours, his maximum temperature was up to 97.8 degrees Fahrenheit. He is hemodynamically stable. HEENT: He has no gross pallor. No obvious icterus. No oropharyngeal lesions. NECK: Supple. CHEST: Symmetric. Lungs are clear. SKIN: The lesions on his left upper face and eyelid are scabbing. The erythema has resolved. CARDIAC: Heart sounds are regular without a new murmur. ABDOMEN: Soft. Bowel sounds are present. EXTREMITIES: There is no acute erythema of his extremities. LABS: His white count is 6.3. His creatinine is 0.7. Vancomycin trough is 13.2 from May 08, 2017. IMPRESSION: He is on treatment for herpes zoster ophthalmicus of the left upper facial distribution. He is complaining of cough with yellowish sputum and sore throat. Whether he is developing bacterial or viral respiratory infection is unclear. I suggest we check a rapid influenza A and B test. We will start him on azithromycin 500 mg p.o. on day 1 and 250 mg p.o. for the next 4 days. Continue acyclovir and steroid eye drops. Continue to monitor clinical response to treatment. Job#: [id number]
--- NOTE | 2017-05-09 23:08 | Discharge Summary ---
ADMISSION DIAGNOSES: 1. Left preseptal periorbital cellulitis. 2. Obesity. 3. Hypertension. 4. Peripheral edema. DISCHARGE DIAGNOSES: 1. Left preseptal periorbital cellulitis. 2. Obesity. 3. Hypertension. 4. Peripheral edema. 5. Shingles in the left upper face. HISTORY: Patient has a history of left knee surgery, cholecystectomy, appendectomy, eye surgery, hand surgery, shoulder surgery, and NV with no stents. HOSPITAL COURSE: K[age]-old male presented developing left eye region swelling and pain. He was admitted for further evaluation and started on vanc and Zosyn empirically. ID was consulted, who discontinued Zosyn and started acyclovir, so patient was receiving acyclovir and vancomycin, and added a steroid eye drop. ID eventually diagnosed the patient with herpes zoster ophthalmicus with bacterial cellulitis, superimposed. CT of the face was done that showed no acute fractures or lesion. Chest x-ray was done and was negative. Blood cultures were negative. Urine culture negative. Throat culture negative. Patient was initially supposed to go to a half-way facility as his never had chickenpox and she was immunocompromised due to recent surgery. Apparently, SNF was not approved by insurance, so antibiotics were changed to p.o. and patient was allowed to go home as he is scabbed over and no longer contagious per ID. Patient was sent with gabapentin, tramadol, Tylenol, Valtrex, for a total of 14 days and prednisolone eye drops for total of 14 days. Patient will follow up with primary care in 1 to 2 weeks. Dictated by Kady Wilkinson NP FARNAZ JOHNSON MD Job#: [id number]
[2017-05-10] MEDS ORDERED: AMLODIPINE BESYLATE 5 MG TAB PO SCH (09:00)
[2017-05-10] MEDS ORDERED: AZITHROMYCIN 250 MG TAB PO SCH (09:00)
== END 2017-05-09 17:42 | disposition home or self-care (01) | DRG 125 ==
LOC: ER 05:28 → ERHOLD 07:41 → MED/SURG2 09:26
PROVIDERS: ADMIT Internal Medicine; ATTEND Internal Medicine
PROC: 02HV33Z Insertion of Infusion Device into Superior Vena Cava, Percutaneous Approach (ICD-10-PCS; principal; 2017-05-06)
PROC: B548ZZA Ultrasonography of Superior Vena Cava, Guidance (ICD-10-PCS; 2017-05-06)
PROC: 3E04329 Introduction of Other Anti-infective into Central Vein, Percutaneous Approach (ICD-10-PCS; 2017-05-06)
DX: B02.30 Zoster ocular disease, unspecified (principal); L03.211 Cellulitis of face; E87.1 Hypo-osmolality and hyponatremia; L03.213 Periorbital cellulitis; I25.2 Old myocardial infarction; E66.9 Obesity, unspecified; I10 Essential (primary) hypertension; R60.9 Edema, unspecified; Z87.891 Personal history of nicotine dependence; Z68.35 Body mass index [BMI] 35.0-35.9, adult; E83.51 Hypocalcemia
CPT/HCPCS: 36415; 36569; 70487; 71045; 80048; 80053; 80061; 80202; 81001; 82550; 82553; 83036; 83518; 83605; 83735; 84484; 85025; 85610; 85730; 87040; 87070; 87086; 90732; J0360; J1170; J2270; J2405; J2543; J3370; J7030; J7040; J7050; Q9967

== ENCOUNTER 2017-09-05 19:48 | Inpatient (IN) | payer MEDICARE ==
[~2017-09-05] VITALS: Ht 177.8 cm; Wt 108.2 kg
[~2017-09-05 19:48] MED LIST changes: +ARICEPT5 MG PO; +ASPIRIN ENTERI325 MG PO; +AZITHROMYCIN250 MG PO; +Calcium Carbonate 500MG Chew PO; +DOXYCYCLINE HY100 MG PO; +GABAPENTIN400 MG PO; +LASIX20 MG PO; +MIRTAZAPINE15 MG PO; +NORVASC5 MG PO; +PRAVASTATIN SOD20 MG PO; +PREDNISOLONE ACE5 ML OP; +QUETIAPINE FUMA25 MG PO; +Tramadol/Apap 37.5MG-325MG PO; +VALACYCLOVIR500 MG PO; +[UNRECOGNIZED DRUG - OTHER] OP
[2017-09-05] MEDS ORDERED: PIPER-TAZ 3.375 GM 50 ML IV SCH (20:00)
[2017-09-05 20:16] LABS: BASOPHILS # (AUTO) 0.1 (0.0-0.1); BASOPHILS % 0.7 % (0.0-1.0); EOSINOPHILS # (AUTO) 0.4 (0.0-0.4); EOSINOPHILS % 5.5 % (0.0-6.0); HEMATOCRIT 40.5 % (38.2-49.6); HEMOGLOBIN 13.4 g/dL (14.0-18.0); LYMPHOCYTES # (AUTO) 1.7 (1.0-3.2); LYMPHOCYTES % 22.7 % (18.0-39.1); MEAN CORPUSCULAR HEMOGLOBIN 31.1 pg (28-32); MEAN CORPUSCULAR HGB CONC 33.1 g/dL (31-35); MONOCYTES # (AUTO) 0.6 (0.2-0.8); MONOCYTES % 7.4 % (4.4-11.3); NEUTROPHILS # (AUTO) 4.7 (2.1-6.9); NEUTROPHILS % 63.2 % (38.7-80.0); PLATELET COUNT 232 x10e3/uL (140-360); RED BLOOD COUNT 4.31 x10e6/uL (4.3-5.7); RED CELL DISTRIBUTION WIDTH 13.7 % (11.7-14.4)
[2017-09-05] MEDS ORDERED: METOPROLOL TART50 MG PO (20:24)
[2017-09-05] MEDS ORDERED: NIFEDIPINE ER30 M1 PO (20:25)
[2017-09-05 20:34] LABS: ALANINE AMINOTRANSFERASE 19 IU/L (0-55); ALBUMIN 3.2 g/dL (3.5-5.0); ALKALINE PHOSPHATASE 74 IU/L (40-150); ANION GAP 13.1 mmol/L (8-16); BLOOD UREA NITROGEN 29 mg/dL (7-26); BUN/CREATININE RATIO 36 (6-25); CALCIUM 8.6 mg/dL (8.4-10.2); CARBON DIOXIDE 24 mmol/L (22-29); CHLORIDE 112 mmol/L (98-107); CREATININE, SERUM 0.81 mg/dL (0.72-1.25); EST GLOMERULAR FILTRATION RATE > 60 ML/MIN (60-); GLUCOSE 132 mg/dL (74-118); POTASSIUM 4.1 mmol/L (3.5-5.1); SODIUM 145 mmol/L (136-145)
[2017-09-05 20:53] LABS: BILIRUBIN,URINE NEGATIVE (NEGATIVE); CLARITY,URINE CLEAR (CLEAR); COLOR,URINE YELLOW (YELLOW); KETONES,URINE NEGATIVE (NEGATIVE); LEUKOCYTE ESTERASE ,URINE NEGATIVE (NEGATIVE); NITRITE,URINE NEGATIVE (NEGATIVE); PROTEIN,URINE DIPSTICK TRACE (NEGATIVE); URINE UROBILINOGEN 4 mg/dL (0.2 - 1)
[2017-09-05] MEDS: VANCOMYCIN 1GM/NS 250 ML 250 ML IV SCH (20:55)
[2017-09-05] MEDS ORDERED: ACETAMINOPHEN 325 MG TAB PO PRN (21:00)
[2017-09-05] MEDS ORDERED: SODIUM CHLORIDE FLUSH 10 ML SYR INJ PRN (21:00)
[2017-09-05 21:03] LABS: MUCUS,URINE FEW (RARE); RBC,URINE 0-5 /HPF (0-5); WBC,URINE (MAN) 0-5 /HPF (0-5)
[2017-09-05] MEDS: PRAVASTATIN 20 MG TAB PO SCH (21:22)
[2017-09-05 21:26] VITALS: BP 150/73
[2017-09-05 21:51] VITALS: BP 150/73
[2017-09-05] MEDS: ONDANSETRON HCL INJ 2 MG/ML VIAL IV PRN (21:56)
[2017-09-05] MEDS: MORPHINE SULFATE 2 MG/ML SYR IV PRN (21:56)
[2017-09-06] VITALS (8 sets, daily range): BP systolic 101–154; BP diastolic 51–84
[2017-09-06] MEDS ORDERED: SODIUM CHLORIDE 0.9% 250ML 250 ML ONE (03:47)
[2017-09-06] MEDS: PIPER-TAZ 3.375 GM 50 ML IV SCH ×3 (03:59→20:07)
[2017-09-06 06:20] LABS: BASOPHILS # (AUTO) 0.1 (0.0-0.1); BASOPHILS % 0.7 % (0.0-1.0); EOSINOPHILS # (AUTO) 0.4 (0.0-0.4); EOSINOPHILS % 5.5 % (0.0-6.0); HEMATOCRIT 38.2 % (38.2-49.6); HEMOGLOBIN 12.6 g/dL (14.0-18.0); LYMPHOCYTES # (AUTO) 1.5 (1.0-3.2); LYMPHOCYTES % 21.3 % (18.0-39.1); MEAN CORPUSCULAR HEMOGLOBIN 31.3 pg (28-32); MONOCYTES # (AUTO) 0.6 (0.2-0.8); MONOCYTES % 8.4 % (4.4-11.3); NEUTROPHILS # (AUTO) 4.5 (2.1-6.9); NEUTROPHILS % 63.7 % (38.7-80.0); PLATELET COUNT 216 x10e3/uL (140-360); RED BLOOD COUNT 4.02 x10e6/uL (4.3-5.7); RED CELL DISTRIBUTION WIDTH 13.6 % (11.7-14.4)
[2017-09-06 07:42] LABS: ALANINE AMINOTRANSFERASE 25 IU/L (0-55); ALBUMIN 3.1 g/dL (3.5-5.0); ALBUMIN/GLOBULIN RATIO 1.1 (0.8-2.0); ALKALINE PHOSPHATASE 75 IU/L (40-150); ANION GAP 11.4 mmol/L (8-16); BLOOD UREA NITROGEN 30 mg/dL (7-26); BUN/CREATININE RATIO 38 (6-25); CALCIUM 8.5 mg/dL (8.4-10.2); CARBON DIOXIDE 25 mmol/L (22-29); CHLORIDE 111 mmol/L (98-107); CREATININE, SERUM 0.79 mg/dL (0.72-1.25); EST GLOMERULAR FILTRATION RATE > 60 ML/MIN (60-); GLUCOSE 99 mg/dL (74-118); POTASSIUM 4.4 mmol/L (3.5-5.1); SODIUM 143 mmol/L (136-145)
[2017-09-06] MEDS: VANCOMYCIN 1GM/NS 250 ML 250 ML IV SCH ×2 (08:00→20:00)
[2017-09-06] MEDS: MORPHINE SULFATE 2 MG/ML SYR IV PRN ×2 (08:42→22:57)
[2017-09-06] MEDS: ONDANSETRON HCL INJ 2 MG/ML VIAL IV PRN ×2 (08:43→22:58)
[2017-09-06] MEDS ORDERED: FUROSEMIDE 20 MG TAB PO SCH (09:00)
[2017-09-06] MEDS ORDERED: AMLODIPINE BESYLATE 5 MG TAB PO SCH (09:00)
[2017-09-06] MEDS: ASPIRIN 325 MG TAB EC PO SCH (09:00)
[2017-09-06] MEDS ORDERED: FUROSEMIDE INJ 10 MG/ML 4 ML VIAL IV ONE (12:15)
--- NOTE | 2017-09-06 13:55 | History and Physical ---
CHIEF COMPLAINT: Left lower extremity swelling and pain associated with redness and tenderness on touching. HISTORY: Patient is a 76-year-old male who has bilateral lower extremity swelling at baseline associated with congestive heart failure, coronary disease, dyslipidemia, and hypertension, came in with bilateral lower extremity swelling, but more tenderness and swelling on the left lower extremity. The Doppler is negative for DVT. The patient, however, is having increasing swelling. He is taking low dose furosemide at home. Patient is otherwise stable at this time. IV antibiotics of vancomycin and Zosyn was given. The patient is stable. PAST MEDICAL HISTORY: Coronary disease with previous CO, congestive heart failure, bilateral lower extremity swelling, lymphedema chronically, dyslipidemia. PAST SURGICAL HISTORY: Left knee surgery replacement, cholecystectomy, appendectomy, cataract surgery, hand surgery, and shoulder surgery. SOCIAL HISTORY: Patient is . He lives with his spouse. He has 3 children. He does not smoke or use alcohol. No regular drugs. ALLERGIES: NO KNOWN ALLERGIES. HOME MEDICATIONS: The patient on Norvasc, aspirin, furosemide, metoprolol, nifedipine, and pravastatin. PHYSICAL EXAMINATION VITAL SIGNS: Temperature is 98, blood pressure 154/84, pulse rate 63, respirations 18. GENERAL: The patient is in no acute distress. He is awake. HEENT: Normocephalic, atraumatic and anicteric. NECK: Supple grossly. PULMONARY: Diminished breath sounds and rales at the base. CARDIOVASCULAR: S1 and S2. Regular rate and rhythm. ABDOMEN: Soft. Obese. EXTREMITIES: Bilateral edema, worse on the left compared to the right with left lower extremity infection. NEUROLOGIC: No focal deficit. LABORATORY: Sodium 143, potassium 4.4, chloride 111, bicarb 25, BUN 30, creatinine 0.8, glucose 99. WBC 7.1, hemoglobin 12.6, hematocrit 38.2, and platelets 216,000. IMPRESSION 1. Left lower extremity cellulitis. 2. Bilateral lower extremity lymphedema. 3. Cvaxt-vl-bdmnwbm systolic dysfunctional heart failure. 4. Morbid obesity. PLAN: Continue with home medications. Lasix IV. IV antibiotics. Resume some home medications with some adjustment. Repeat lab work in the morning. Obtain a 2-D echocardiogram today. Job#: [id number] MI
[2017-09-06] MEDS: METOPROLOL TARTRATE 50 MG TAB PO SCH (16:36)
[2017-09-06] MEDS: PRAVASTATIN 20 MG TAB PO SCH (21:00)
[2017-09-07 00:39] VITALS: BP 124/55
[2017-09-07] MEDS: PIPER-TAZ 3.375 GM 50 ML IV SCH (04:15)
[2017-09-07 05:34] VITALS: BP 135/59
[2017-09-07 06:27] LABS: BASOPHILS # (AUTO) 0.1 (0.0-0.1); BASOPHILS % 0.7 % (0.0-1.0); EOSINOPHILS # (AUTO) 0.4 (0.0-0.4); EOSINOPHILS % 5.5 % (0.0-6.0); HEMATOCRIT 38.1 % (38.2-49.6); HEMOGLOBIN 12.9 g/dL (14.0-18.0); LYMPHOCYTES # (AUTO) 1.4 (1.0-3.2); LYMPHOCYTES % 21.2 % (18.0-39.1); MEAN CORPUSCULAR HEMOGLOBIN 31.5 pg (28-32); MEAN CORPUSCULAR HGB CONC 33.9 g/dL (31-35); MEAN CORPUSCULAR VOLUME 92.9 fL (81-99); MONOCYTES # (AUTO) 0.6 (0.2-0.8); MONOCYTES % 8.6 % (4.4-11.3); NEUTROPHILS # (AUTO) 4.3 (2.1-6.9); NEUTROPHILS % 63.4 % (38.7-80.0); PLATELET COUNT 240 x10e3/uL (140-360); RED CELL DISTRIBUTION WIDTH 13.2 % (11.7-14.4)
[2017-09-07 06:59] LABS: ANION GAP 11.9 mmol/L (8-16); BLOOD UREA NITROGEN 28 mg/dL (7-26); BUN/CREATININE RATIO 30 (6-25); CALCIUM 8.7 mg/dL (8.4-10.2); CARBON DIOXIDE 28 mmol/L (22-29); CHLORIDE 105 mmol/L (98-107); CREATININE, SERUM 0.93 mg/dL (0.72-1.25); EST GLOMERULAR FILTRATION RATE > 60 ML/MIN (60-); GLUCOSE 94 mg/dL (74-118); POTASSIUM 3.9 mmol/L (3.5-5.1); SODIUM 141 mmol/L (136-145)
[2017-09-07 08:00] VITALS: BP 135/65
[2017-09-07] MEDS: VANCOMYCIN 1GM/NS 250 ML 250 ML IV SCH (08:00)
[2017-09-07] MEDS ORDERED: FUROSEMIDE INJ 10 MG/ML 4 ML VIAL IV SCH (08:00)
[2017-09-07 08:52] VITALS: BP 135/59
[2017-09-07] MEDS ORDERED: NIFEDIPINE CR 30 MG TAB PO SCH (09:00)
[2017-09-07] MEDS: ASPIRIN 325 MG TAB EC PO SCH (09:00)
[2017-09-07] MEDS: METOPROLOL TARTRATE 50 MG TAB PO SCH (09:00)
[2017-09-07] MEDS ORDERED: AUGMENTIN 875-1 EACH PO (09:41)
[2017-09-07] MEDS ORDERED: POTASSIUM CHLO10 ME1 PO (09:42)
[2017-09-07] MEDS ORDERED: FUROSEMIDE40 MG PO (09:42)
--- NOTE | 2017-09-07 10:41 | Discharge Summary ---
FINAL DIAGNOSES 1. Qssfv-rr-wgyrmax diastolic dysfunction congestive heart failure associated with bilateral lower extremity edema and shortness of breath. 2. Baseline left lower extremity cellulitis secondary to worsening lymphedema. 3. Dyspnea, both at rest and on exertion. SUMMARY: A 76-year-old obese male with diastolic dysfunction congestive heart failure came in with acute exacerbation of bilateral lower extremity swelling and increasing shortness of breath. Echocardiogram showed consistent with left ventricular hypertrophy and left atrial enlargement consistent with most likely pulmonary hypertension with EF of approximately 60%. There is no pericardial effusion. The patient was placed on IV Lasix aggressively. His swelling has significantly subsided. The redness and the infection of his left leg has improved. The patient is ambulatory. He is stable. At this time, he will go home with the following medications: 1. For home medications, he will continue with aspirin. 2. Metoprolol. 3. Pravastatin. 4. Nifedipine. NEW PRESCRIPTIONS 1. Lasix 40 mg twice a day. 2. Potassium 10 mEq twice a day. 3. Augmentin 875 mg b.i.d. for 7 days. I also gave him extra medication of nifedipine XL. Patient is stable and discharged home today. Follow as an outpatient with his family doctor for any adjustment of his medications. Job#: [id number] TIFFANY
== END 2017-09-07 11:01 | disposition home or self-care (01) | DRG 602 ==
LOC: ER 19:48 → ERHOLD 21:11 → MED/SURG2 21:22
PROVIDERS: ADMIT Internal Medicine; ATTEND Internal Medicine
DX: L03.116 Cellulitis of left lower limb (principal); I50.33 Acute on chronic diastolic (congestive) heart failure; I11.0 Hypertensive heart disease with heart failure; I89.0 Lymphedema, not elsewhere classified; R06.00 Dyspnea, unspecified; I27.22 Pulmonary hypertension due to left heart disease; I25.10 Atherosclerotic heart disease of native coronary artery without angina pectoris; E78.5 Hyperlipidemia, unspecified; I25.2 Old myocardial infarction; R60.0 Localized edema; E66.01 Morbid (severe) obesity due to excess calories; Z68.34 Body mass index [BMI] 34.0-34.9, adult; Z87.891 Personal history of nicotine dependence
CPT/HCPCS: 36415; 80048; 80053; 81001; 85025; 87040; 93306; 93971; 99284; J1940; J2270; J2405; J2543; J3370; J7050

== ENCOUNTER 2017-12-23 11:31 | Inpatient (IN) | payer MEDICARE ==
[~2017-12-23] VITALS: Ht 177.8 cm; Wt 104.8 kg
[2017-12-23] MEDS: FAMOTIDINE 20 MG TAB PO SCH (07:30)
[~2017-12-23 11:31] MED LIST changes: +AUGMENTIN 875-1 EACH PO; +METOPROLOL TART50 MG PO; +NIFEDIPINE ER30 M1 PO; +POTASSIUM CHLO10 ME1 PO
[2017-12-23] MEDS ORDERED: ACETAMINOPHEN/CODEINE 300MG - 30MG TAB PO ONE (12:00)
[2017-12-23] MEDS ORDERED: ASPIRIN 81 MG CHEW TAB PO ONE (12:00)
[2017-12-23 13:25] LABS: BILIRUBIN,URINE NEGATIVE (NEGATIVE); CLARITY,URINE SL CLOUDY (CLEAR); COLOR,URINE YELLOW (YELLOW); KETONES,URINE NEGATIVE (NEGATIVE); LEUKOCYTE ESTERASE ,URINE NEGATIVE (NEGATIVE); NITRITE,URINE NEGATIVE (NEGATIVE); URINE UROBILINOGEN 0.2 mg/dL (0.2 - 1)
[2017-12-23 13:32] LABS: PROTEIN,URINE DIPSTICK NEGATIVE (NEGATIVE)
--- NOTE | 2017-12-23 13:33 | Diagnostic Imaging Report ---
EXAMINATION: CHEST SINGLE (PORTABLE) INDICATION: Leg swelling. COMPARISON: 05/06/2017 FINDINGS: TUBES and LINES: None. LUNGS: Lungs are well inflated. Lungs are clear. There is no evidence of pneumonia or pulmonary edema. PLEURA: No pleural effusion or pneumothorax. Nonspecific elevation of the right hemidiaphragm. HEART AND MEDIASTINUM: Cardiomegaly with mild pulmonary vascular congestion. BONES AND SOFT TISSUES: No acute osseous lesion. Soft tissues are unremarkable. UPPER ABDOMEN: No free air under the diaphragm. IMPRESSION: Cardiomegaly with mild pulmonary vascular congestion. Nonspecific elevation of the right hemidiaphragm. Signed by: Dr. Zak Batista M.D. on 12/23/2017 1:30 PM
[2017-12-23 13:42] LABS: BACTERIA,URINE FEW /HPF; EPITHELIAL CELLS,URINE MODERATE /LPF; WBC,URINE (MAN) 0-5 /HPF (0-5)
[2017-12-23 14:08] LABS: BASOPHILS # (AUTO) 0.1 (0.0-0.1); BASOPHILS % 0.7 % (0.0-1.0); EOSINOPHILS # (AUTO) 0.4 (0.0-0.4); EOSINOPHILS % 4.9 % (0.0-6.0); HEMOGLOBIN 14.3 g/dL (14.0-18.0); LYMPHOCYTES # (AUTO) 1.9 (1.0-3.2); MEAN CORPUSCULAR HGB CONC 33.3 g/dL (31-35); MEAN CORPUSCULAR VOLUME 93.1 fL (81-99); MONOCYTES # (AUTO) 0.5 (0.2-0.8); MONOCYTES % 7.3 % (4.4-11.3); NEUTROPHILS # (AUTO) 4.5 (2.1-6.9); NEUTROPHILS % 60.7 % (38.7-80.0); PLATELET COUNT 191 x10e3/uL (140-360); RED BLOOD COUNT 4.62 x10e6/uL (4.3-5.7); RED CELL DISTRIBUTION WIDTH 14.7 % (11.7-14.4)
[2017-12-23 14:14] LABS: INR 0.95; PARTIAL THROMBOPLASTIN TIME 26.2 seconds (23.8-35.5); PROTHROMBIN TIME 13.6 seconds (11.9-14.5)
[2017-12-23 14:24] LABS: ALANINE AMINOTRANSFERASE 15 IU/L (0-55); ALBUMIN 3.7 g/dL (3.5-5.0); ALBUMIN/GLOBULIN RATIO 1.3 (0.8-2.0); ALKALINE PHOSPHATASE 70 IU/L (40-150); ANION GAP 13.4 mmol/L (8-16); BLOOD UREA NITROGEN 20 mg/dL (7-26); BUN/CREATININE RATIO 24 (6-25); CALCIUM 9.3 mg/dL (8.4-10.2); CARBON DIOXIDE 24 mmol/L (22-29); CHLORIDE 108 mmol/L (98-107); CREATINE KINASE 34 IU/L (30-200); CREATININE, SERUM 0.83 mg/dL (0.72-1.25); EST GLOMERULAR FILTRATION RATE > 60 ML/MIN (60-); GLUCOSE 88 mg/dL (74-118); LIPASE 10 U/L (8-78); MAGNESIUM 1.9 MG/DL (1.3-2.1); POTASSIUM 4.4 mmol/L (3.5-5.1); SODIUM 141 mmol/L (136-145)
[2017-12-23 14:49] LABS: THYROID STIMULATING HORMONE 1.158 uIU/mL (0.350-4.940)
[2017-12-23] MEDS ORDERED: DIPHENHYDRAMINE HCL 25 MG CAP PO PRN (15:00)
[2017-12-23] MEDS ORDERED: ZOLPIDEM TARTRATE 5 MG TAB PO PRN (15:00)
[2017-12-23] MEDS ORDERED: IBUPROFEN 200 MG TAB PO PRN (15:00)
[2017-12-23] MEDS ORDERED: ENALAPRILAT IV INJ 1.25 MG/ML VIAL IV PRN (15:00)
[2017-12-23] MEDS ORDERED: ACETAMINOPHEN 325 MG TAB PO PRN (15:00)
[2017-12-23] MEDS ORDERED: CLONIDINE HCL 0.1 MG TAB PO PRN (15:00)
--- NOTE | 2017-12-23 15:45 | Diagnostic Imaging Report ---
Exam: Head CT without contrast History: Dizziness, blurry vision, possible CVA. Comparison studies: None Technique: Axial images were obtained from the skull base to the vertex. Coronal and sagittal images reconstructed from the axial data. Dose modulation, iterative reconstruction, and/or weight based adjustment of the mA/kV was utilized to reduce the radiation dose to as low as reasonably achievable. Radiation dose: Total DLP: 832 mGy*cm. Estimated effective dose: DLP x 0.015 Intravenous contrast: None Findings: Scalp: No abnormalities. Bones: No fractures, blastic or lytic lesions. Brain sulci: Appropriate for age. Ventricles: Normal in size and configuration. No hydrocephalus. Extra-axial spaces: No masses, no fluid collection. Parenchyma: No mass, acute hemorrhage or acute cortical vascular insult. Sellar/suprasellar region: No abnormalities. Craniocervical junction: Patent foramen magnum. No Chiari one malformation. Incidental findings: Atherosclerotic calcifications in the carotid siphons. IMPRESSION: 1. No acute intracranial abnormalities. Specifically, no mass, acute hemorrhage or acute cortical vascular insult. 2. Mild generalized volume loss. Signed by: Dr. Joseph Espinosa M.D. on 12/23/2017 3:41 PM
--- NOTE | 2017-12-23 18:07 | Cardiology Report ---
DATE OF STUDY: December 23, 2017 DOPPLER SCAN OF THE LOWER EXTREMITY ARTERIES ATTENDING PHYSICIAN: Dr. Clarissa Crawford. The lower extremity arteries were interrogated using the duplex scanning method. Segmental pressure measurements and ankle brachial indices were not submitted for interpretation. Duplex scan showed biphasic waveform throughout. CONCLUSION: 1. No high-grade stenosis or flow impairment based on waveforms involving the lower extremity arteries bilaterally. 2. No ankle brachial indices or segmental pressure measurements submitted for interpretation. Job#: [id number] EV cc:CLARISSA CRAWFORD MD
--- NOTE | 2017-12-23 18:10 | Cardiology Report ---
DATE OF STUDY: December 23, 2017 DOPPLER SCAN OF THE LOWER EXTREMITY VEINS ATTENDING PHYSICIAN: Dr. Clarissa Crawford. The lower extremity veins were interrogated using the duplex scanning method. The saphenous veins bilaterally appear to have thrombosis. Elsewhere the veins were compressible without any deep venous thrombosis. CONCLUSIONS: 1. Bilateral greater saphenous vein thrombosis. 1. No definite evidence of deep venous thrombosis involving the major arteries of the lower extremities bilaterally. Job#: [id number] EV cc:CLARISSA CRAWFORD MD
--- NOTE | 2017-12-23 18:30 | Diagnostic Imaging Report ---
Exam: Lumbar spine MRI without IV contrast History: Leg swelling, weakness, evaluate for cord compression. Comparison studies: None Technique: Sagittal and axial T2 , sagittal T1 and IR, axial spin density oblique and coronal T2. Intravenous contrast: None Findings: Image quality: Several pulse sequences are somewhat limited by artifacts related to patient motion. Number of lumbar vertebral bodies: 5. Alignment: Mild thoracal lumbar curvature convex to the left. Normal lumbar lordosis. Mild grade 1 retrolisthesis of L5 on S1. Soft tissues: No T2 hyperintense inflammatory changes. Paraspinal muscles: Mild to moderate symmetric atrophy. Lower thoracic cord: Normal in signal and morphology. The tip of the conus terminates at L1-L2. Cauda equina: Focal crowding of the cauda equina nerve roots at L3-L4 due to disc herniation and severe degenerative canal stenosis as described below. Vertebrae: No compression fracture or infection. Incidental L5 vertebral body hemangioma. Subcentimeter T1 hyperintensity in the right superior L3 endplate may reflect additional hemangioma. Degenerative changes: Degenerated disks with of T2/STIR disc signal from T10 to the included S1 levels without associated degenerative endplate edema. T10-T11: Mild loss of disc height. Mild foraminal stenosis due to facet arthrosis. T11-T12: Mild loss of disc height. Small disc bulge indents the thecal sac without significant canal stenosis. T12-L1: Patent canal and foramina. L1-L2: Bilateral facet arthrosis. Patent canal and foramina. L2-L3: Bilateral facet arthrosis. Patent canal and foramina. L3-L4: Mild loss of disc height posteriorly. There is a disc osteophyte complex with superimposed 15 mm x 3.5 mm x 7 mm (SI x AP x TV) inferiorly migrated right central/subarticular disc extrusion which in combination with thickened ligamentum flavum and moderate bilateral facet arthrosis result in severe canal stenosis, moderate bilateral foraminal stenosis and bilateral subarticular stenosis with compression of the right L4 subarticular nerve root. L4-L5: Disc bulge, thickened ligamentum flavum and bilateral facet arthrosis with moderate to severe canal stenosis severe right and moderate left foraminal stenosis and narrowing of the bilateral subarticular recess ease. L5-S1: Moderate loss of disc height. Minimal retrolisthesis of L5 on S1 with associated disc osteophyte complex and facet arthrosis with severe bilateral foraminal stenosis. Additional findings: Partially imaged 2.4 cm T2 hyperintense cyst in the superior pole left kidney. Additional subcentimeter T2 hyperintense lesions in the left kidney may represent cysts but are too small to accurately further characterize. An 8 mm T2 hyperintensity in the anterior liver is seen on the coronal T2 sequence is indeterminate, possibly cyst IMPRESSION: 1. No compression fracture or marrow edema. 2. Severe degenerative canal stenosis at L3-L4 where there is an inferiorly migrated disc extrusion which also compresses the right L4 nerve nerve root. 3. Moderate to severe degenerative canal stenosis at L4-L5. 4. Multilevel degenerate foraminal stenosis; moderate bilaterally at L3-L4, severe right and moderate left at L4-L5 and severe bilaterally at L5-S1. 5. Multilevel disc degeneration and facet arthrosis as described. Signed by: Dr. Joseph Espinosa M.D. on 12/23/2017 6:26 PM
[2017-12-23 19:38] VITALS: BP_SYST 123; BP_SYST 152; BP_DIAS 72; BP_DIAS 92
[2017-12-23 19:46] VITALS: BP 152/72
[2017-12-23 20:00] VITALS: BP 152/72
[2017-12-23] MEDS: ONDANSETRON HCL INJ 2 MG/ML VIAL IV PRN (20:28)
[2017-12-23] MEDS: MORPHINE SULFATE 2 MG/ML SYR IV PRN (20:28)
[2017-12-24] VITALS (7 sets, daily range): BP systolic 142–166; BP diastolic 66–73
[2017-12-24] MEDS: MORPHINE SULFATE 2 MG/ML SYR IV PRN ×4 (01:40→20:23)
[2017-12-24] MEDS: ONDANSETRON HCL INJ 2 MG/ML VIAL IV PRN ×3 (01:40→20:24)
[2017-12-24] MEDS: FAMOTIDINE 20 MG TAB PO SCH ×2 (07:30→16:55)
--- NOTE | 2017-12-24 18:20 | Diagnostic Imaging Report ---
History: 77-year-old male with history of multiple surgeries to the cervical spine, now complains of new onset bilateral leg weakness resulting in multiple falls at home. Comparison studies: None Technique: Sagittal T1, T2 and IR, axial T2 and axial gradient echo Intravenous contrast: None Findings: Postoperative changes from a prior C4-C5 ACDF, and likely a prior C5-C7 3 level ACDF without visible hardware. Alignment: Relative postsurgical straightening of the cervical spine No scoliosis. Cervicomedullary junction: No abnormalities. Patent foramen magnum. Soft tissues: No T2 hyperintense inflammatory changes. Spinal cord: Increased T2 signal seen within the cord at the C7-T1 level. Vertebrae: No fractures, infection or neoplasm. Degenerative changes: C2-C3: No abnormalities. C3-C4: Decreased disc signal and height. Symmetric bulging disc with 2.9 mm of posterior mass effect. Moderate narrowing of the spinal canal. Mild bilateral foraminal narrowing. C4-C5: Postsurgical changes from discectomy and fusion. No significant residual canal or foraminal narrowing C5-C6: Fusion from C5 to C6. Mild right-sided narrowing of the spinal canal. No significant foraminal narrowing. C6-C7: Fusion from C6 to C7. Mild right-sided narrowing of the spinal canal. Mild to moderate bilateral foraminal narrowing. C7-T1: Grade 1 anterolisthesis. Symmetric bulging disc with 3.3 mm of posterior mass effect. Thickening of the ligamentum flavum with 2.9 mm mass effect. Moderate to severe narrowing of the spinal canal with loss of CSF signal adjacent to the cord. Mild increase in T2 signal within the cord at the level of canal stenosis. Mild foraminal narrowing. IMPRESSION: 1. Prior 4 level fusion from C4 to C7 with adjacent level disease. 2. Moderate to severe narrowing of the spinal canal at C7-T1 from symmetric bulging disc and thickening of the ligamentum flavum with associated mild cord signal change Original Preliminary Report Below: There is signal change/edema within the cord at C7-T1 due to severe canal stenosis from uncovering of a diffuse disc bulge from grade I anterolisthesis and severe ligamentum flavum thickening. No acute fracture. Dr. Lise Escoto discussed findings with Nurse Alice Winn on 12/24/2017 at 1824 hours. Preliminary report provided by Dr. Lise Escoto on 12/24/2017 at 182 hours. Signed by: Dr. Tico Couch M.D. on 12/26/2017 4:18 PM
[2017-12-24] MEDS ORDERED: FAMOTIDINE 20 MG TAB PO SCH (21:00)
--- NOTE | 2017-12-24 23:53 | Consultation ---
DATE OF CONSULTATION: December 24, 2017 NEUROLOGY CONSULT NOTE HISTORY OF PRESENT ILLNESS: Mr. Vick is a 77-year-old right hand dominant man with past medical history significant for hypertension, hyperlipidemia, coronary artery disease with a prior myocardial infarction, peripheral vascular disease, and cervical stenosis admitted to [facility] on December 23, 2017, with lower extremity weakness and swelling. Beginning approximately 1 to 2 weeks ago, Mr. Vick began to experience weakness affecting both legs, left slightly greater than right. Over the past 1 to 2 weeks, this weakness has gradually progressed. Mr. Vick reports difficulty walking long distances and performing any and all physical activities. The patient does not endorse burning pain, tingling, or pins and needles sensation affecting either foot or leg. He does report numbness over the soles of both feet. In addition to the above symptoms, the patient endorses low back pain which he describes as a moderate to severe " hard pain" without radiation. The back pain as described began approximately 1 month ago. Mr. Vick does not report saddle anesthesia. He does report some bladder incontinence, beginning approximately 1 month ago. He does not report bowel incontinence. As stated above, Mr. Vick does have a prior history of cervical stenosis and has undergone 2 cervical spine procedures. The patient does report being told he has another cervical spine level "that looks pretty bad". At present, the patient does not report neck pain, arm pain, weakness, numbness, tingling, or other abnormal sensations affecting the hands or arms. Mr. Vick has not experienced similar symptoms previously. Mr. Vick is admitted to [facility] under observation status on December 23, 2017, for further evaluation and treatment of his symptoms. REVIEW OF SYSTEMS: Urinary incontinence, weakness of both legs, numbness over the soles of both feet, and low back pain. Otherwise, a 12-point review of systems is negative. PAST MEDICAL HISTORY: Hypertension, hyperlipidemia, coronary artery disease with prior myocardial infarction, peripheral vascular disease, and cervical stenosis. PAST SURGICAL HISTORY: Cholecystectomy, appendectomy, left knee replacement, cervical spine surgery x2, bilateral carpal tunnel release, and bilateral cataract removal. PAST HOSPITALIZATIONS: Surgeries/procedures as listed, myocardial infarction, and pneumonia. FAMILY MEDICAL HISTORY: The patient's paternal grandparents are . The paternal grandfather is from coronary artery disease with a myocardial infarction. The paternal grandmother is from natural causes. The patient's maternal grandparents are . Their medical histories are unknown. Mr. Vick's father is from pancreatic cancer. He had a history of diabetes mellitus as well. The patient's mother is from renal failure. She had a history of diabetes mellitus. The patient had 5 siblings, 2 brothers and 3 sisters. One brother is from a stroke. The second brother is alive and healthy. One sister is from complications of lupus. A 2nd sister is from natural causes. A 3rd sister is alive and has diabetes mellitus. Mr. Vick has 5 children, 4 sons and 1 daughter, all of whom are alive and healthy. SOCIAL HISTORY: The patient is . He is retired. Mr. Vick does report a remote history of tobacco use, smoking cigarettes 30 years ago. Patient does not report current or prior alcohol or recreational drug use. HOME MEDICATIONS: Please see the list of home medications available in the electronic medical record. ALLERGIES: NO KNOWN DRUG ALLERGIES. NO KNOWN FOOD ALLERGIES. NO KNOWN ALLERGIES TO LATEX. NO KNOWN ALLERGIES TO IODINE OR OTHER CONTRAST MATERIALS. PHYSICAL EXAMINATION VITAL SIGNS: Height 70 inches, weight 233 mmHg, beats per minute, respiratory rate 20 breaths per minute, and oxygen saturation % on room air. GENERAL: The patient is awake and alert. Does not appear distressed. Obese. HEENT: Normocephalic, atraumatic. Pupils are surgical. Moist mucous membranes. NECK: Supple. No appreciable carotid bruits. CARDIOVASCULAR: S1, S2, regular rate and rhythm. No murmurs, rubs, or gallops. RESPIRATORY: Clear to auscultation bilaterally. No wheezes, rhonchi, or rales. EXTREMITIES: The skin is warm and dry. No clubbing or cyanosis. Positive for 2+ pretibial pitting edema. The posterior tibial and dorsalis pedis pulses are 1+ and symmetric. SKIN. No rashes or lesions. NEUROLOGIC Memory/Attention: The patient is awake and alert, oriented to person, place, time, and situation. Cranial Nerves: Cranial nerve I: Not tested. Cranial nerve II, III, IV, and : Pupils are surgical. Extraocular movements intact. No nystagmus. Cranial nerve V: Sensation to light touch and pinprick is intact in the bilateral V1 through V3 distributions. Strength of the temporalis and masseter muscles is within normal limits. Cranial nerve VII: The face is symmetric as are all facial movements. Strength is within normal limits. Cranial nerve VIII: Hearing is intact to finger rub bilaterally. Cranial nerve IX, X: The soft palate elevates equally and symmetrically. Cranial nerve XI: Normal strength of the bilateral sternocleidomastoid and trapezius muscles. Cranial nerve XII: The tongue protrudes in midline and moves symmetrically from side to side. Strength: Bulk is normal. Strength is 5/5 in the bilateral deltoids, biceps, triceps, wrist flexors and extensors, finger flexors and extensors, and intrinsic hand muscles. There is effort-dependent weakness in multiple muscles examined in the bilateral lower extremities, probably secondary to pain: Grossly, the lower extremity extensors are 4+/5, the lower extremity flexors are 5/5. Tone is normal. DTRs: Deep tendon reflexes are 1+ and symmetric at the triceps, biceps, brachioradialis, and patellae. Deep tendon reflexes at the Achilles. Plantar responses are flexor bilaterally. Sensation: Sensation is intact to light touch and pinprick in both arms and both legs. Cerebellar: Yrunfa-oivu-ecpcag and heel-ludwig movements are intact without dysmetria or other impairment. Gait: Deferred. Speech: Spontaneous speech is normal without appreciable dysarthria or aphasia. Repetition is intact. Involuntary Movements: None. Pronator Drift: None. LABORATORY DATA: The patient's comprehensive metabolic panel is significant for carbon dioxide level was 108. Cardiac enzymes negative x1. B-natriuretic peptide is elevated at 190.7. Lipase 10. TSH 1.158. The CBC with differential and platelets revealed a white blood cell count of 7.36 with a normal differential. The hemoglobin and hematocrit are 14.3 and 43.0, respectively. The platelet count is 191,000. The coagulation profile is within normal limits. Quantitative D-dimer is 0.43. A urinalysis is significant for slightly cloudy urine, but is otherwise unremarkable. DIAGNOSTIC STUDIES Electrocardiogram, December 23, 2017: Sinus rhythm at 69 beats per minute with 1st-degree AV block. Doppler scan of the lower extremity veins, December 23, 2017 1. Bilateral greater saphenous vein thrombosis. 2. No definite evidence of deep venous thrombosis involving the major arteries of the lower extremities bilaterally. Chest x-ray, December 23, 2017: Cardiomegaly with mild pulmonary vascular congestion. Nonspecific elevation of the right hemidiaphragm. Doppler scan of the lower extremity arteries, December 23, 2017 1. No high-grade stenosis or flow impairment based on waveforms involving the lower extremity arteries bilaterally. 2. No ankle brachial indices or segmental pressure measurements submitted for interpretation. MRI of the lumbar spine without contrast, December 23, 2017 1. No compression fracture or marrow edema. 2. Severe degenerative canal stenosis at L3-L4 where there is an inferiorly migrated disk extrusion which also compresses the right L4 nerve root. 3. Moderate to severe degenerative canal stenosis at L4-L5. 4. Multilevel degenerative foraminal stenosis; moderate bilaterally at L3-4, severe right and moderate left at L4-L5 and severe bilaterally at L5-S1. 5. Multilevel disk degeneration and facet arthrosis as described. CT of the brain without contrast, December 23, 2017: On my review, there is no evidence of recent large territorial ischemia, hemorrhage, mass, or mass effect. There is mild diffuse cerebral atrophy, appropriate for age. MRI of the cervical spine December 24, 2017: There is signal change/edema within the cord at C7-T1 due to severe canal stenosis from uncovering of the diffuse disk bulge from grade 1 anterolisthesis and severe ligamentum flavum thickening. No acute fracture. ASSESSMENT AND PLAN: Mr. Vick is a 77-year-old right hand dominant man with past medical history as documented, admitted to [facility] on December 23, 2017, with subacute low back pain, weakness, and swelling in both legs. The patient has undergone a thorough neurological examination as detailed above. His laboratory data and other diagnostic studies have been reviewed and are documented above. The patient's magnetic resonance imaging of the cervical spine reveals cervical stenosis at C7-T1 as documented above. Dr. James Manning has been consulted and will likely take the patient to the operating room tomorrow, December 25, 2017, for decompression. Regarding the patient's symptoms in his low back and legs, his history and neurological examination are compatible with probable bilateral lumbosacral radiculopathies secondary to degenerative disk disease of the lumbosacral spine. At present, urgent surgical intervention is not indicated. It is recommended the patient attempts conservative treatment for his low back and leg symptoms prior to undergoing additional surgical procedures. RECOMMENDATIONS 1. Mr. Vick should be treated with an anti-inflammatory medication daily. He may be treated with a muscle relaxant and pain medication every 8 hours as needed. 2. Once able, the patient may attend outpatient physical therapy for core strengthening exercises. 3. Defer treatment of the remaining medical comorbidities to the primary and other services following the patient. Thank you for this consultation. I will continue to follow this patient while he remains in the hospital. TIME SPENT: 70 minutes. Job#: [id number]
[2017-12-25] VITALS: BP 136/60
[2017-12-25] MEDS: DEXAMETHASONE SOD PHOS INJ 4 MG/ML VIAL IV SCH ×5 (00:56→23:33)
[2017-12-25 04:00] VITALS: BP 159/72
[2017-12-25] MEDS ORDERED: LIDOCAINE HCL (LTA) 4 ML SOLN ONE (07:04)
[2017-12-25] MEDS: FAMOTIDINE 20 MG TAB PO SCH ×2 (07:30→16:08)
[2017-12-25 07:31] VITALS: BP 160/72
--- NOTE | 2017-12-25 08:34 | Consultation ---
DATE OF CONSULTATION: December 24, 2017 REASON FOR CONSULTATION: Inability to walk. The patient is a 77-year-old man who presents with a 1-week history of bilateral significant leg weakness with inability to walk. When he attempts to walk, he frequently falls. He has had low back pain for about a month, but the pain does not radiate into the legs. The left leg is weaker than the right. He has intermittent numbness in both legs, but the weakness is more pronounced than the numbness. In addition, he states that he has bilateral weakness of the shoulders, which has been going on for at least several months and possibly a couple of years. He said he has had previous problems with his cervical spine but has never had surgery on it. He has mild chronic neck pain but no radiating pain down the arms. PHYSICAL EXAMINATION: The patient is alert and lucid. Motor strength is markedly diminished in both deltoids, graded as 3/5. It is mildly diminished in the biceps and triceps, graded as 5-/5. Motor strength is fairly well preserved in the hands. The strength is quite weak in the hip flexors. He is unable to lift his legs against gravity. The strength is graded as 2/5 in the hip flexors. It is graded as 3/5 in the quadriceps and 4/5 in the anterior tibialis and gastrocnemius muscles bilaterally. Sensory testing reveals patchy numbness in the legs not following any particular dermatomal pattern or true sensory level. MRI of the lumbar spine reveals severe lumbar spinal stenosis at L3-4 due to a combination of facet and ligamentous hypertrophy and a superimposed disk herniation. In addition, he has moderately severe stenosis at L4-5 due to facet and ligamentous hypertrophy. IMPRESSION: Severe L3-L4 spinal stenosis due to a combination of a recent disk herniation and pre-existing facet and ligamentous hypertrophy. This could account for the patient's gait disorder, although his hip flexor weakness appears to be quite out of proportion to the radiographic findings. I am concerned about compression of the cord at a higher level. In view of his pre-existing deltoid weakness, we will proceed with a stat MRI of the cervical spine to rule out cervical cord compression. If that MRI is negative, we will proceed with L3-4 bilateral decompressive laminectomy and diskectomy tomorrow. The risks, benefits and alternatives were explained to the patient and his in great detail. Specifically, the risk of infection, bleeding, cerebrospinal fluid leakage, urinary retention, and the possibility of no improvement were explained to the patient. He will likely require inpatient rehabilitation after the surgery. He gave informed consent to proceed with surgery. Job#: [id number]
[2017-12-25] MEDS ORDERED: GELATIN SPONGE 12-7MM ONE (12:07)
[2017-12-25] MEDS ORDERED: MAGNESIUM/ALUMINUM/SIMETHICONE 30 ML UDC PO PRN (12:30)
[2017-12-25] MEDS ORDERED: ACETAMINOPHEN 325 MG TAB PO PRN (12:30)
[2017-12-25] MEDS ORDERED: HYDROMORPHONE 2MG/ML 2 MG/ML ML IV PRN (12:30)
[2017-12-25] MEDS ORDERED: MORPHINE SULFATE 5 MG/ML VIAL IM PRN (12:30)
[2017-12-25] MEDS ORDERED: PROMETHAZINE HCL (IM) 25 MG/ML VIAL IM PRN (12:30)
[2017-12-25] MEDS ORDERED: CEPACOL SORE THROAT LOZENGES PO PRN (12:30)
[2017-12-25] MEDS ORDERED: ONDANSETRON HCL INJ 2 MG/ML VIAL IV PRN (12:30)
[2017-12-25] MEDS ORDERED: CEFAZOLIN SOD 1 GM/D5W 50ML 50 ML IV SCH (14:00)
[2017-12-25] MEDS: LACTATED RINGER'S 1,000 ML IV SCH ×2 (14:00→20:57)
[2017-12-25] MEDS: CARISOPRODOL 350 MG TAB PO PRN ×3 (14:05→22:18)
[2017-12-25] MEDS: OXYCODONE/ACETAMINOPHEN 5-325 1 EACH TABLET PO PRN ×3 (14:05→22:18)
[2017-12-25 15:42] VITALS: BP 160/76
--- NOTE | 2017-12-25 16:38 | Operative Report ---
DATE OF PROCEDURE: December 25, 2017 PREOPERATIVE DIAGNOSIS: C7-T1 spondylolisthesis and spondylosis with spinal cord compression and myelomalacia, M43.13, M47.13. POSTOPERATIVE DIAGNOSIS: C7-T1 spondylolisthesis and spondylosis with spinal cord compression and myelomalacia, M43.13, M47.13. PROCEDURES 1. C7-T1 anterior cervical diskectomy and microsurgical osteophyte resection and allograft fusion, 65284. 2. Preparation of tricortical iliac crest allografts, 84683. 3. C7-T1 anterior cervical plating with Synthes CSLP plate, 55490. 4. C7 posterior approach for bilateral decompressive laminectomy, 98563-24. 5. T1 bilateral decompressive laminectomy, 40176. ANESTHESIA: General. INDICATIONS: Patient is a 77-year-old man who presents with severe spinal stenosis at C7-T1 due to grade 1 spondylolisthesis and facet and ligamentous hypertrophy producing cord compression with myelomalacia. He has a cervical myelopathy syndrome and is unable to ambulate. He was taken to the operating room for anterior and posterior decompression and fusion of the C7-T1 segment. He has had a previous C4 to C7 fusion with the plate remaining at C4-5. PROCEDURE: After induction of general anesthesia, the patient was placed on the operating table in supine position first. The right side of the neck was prepped and draped in sterile fashion. The fluoroscopic C-arm was positioned in cross-table lateral orientation. A transverse incision was created on the right side of the neck just above the clavicle. The platysma was divided in line with the incision. A plane of dissection was developed medial to the sternocleidomastoid muscle and was followed medial to the carotid sheath to the anterior border the cervical spine. The deep cervical fascia was opened. The esophagus was retracted to the left. The attachments of longus coli muscles to the anterolateral aspects of vertebral bodies of C7 and T1 were divided. The anterior longitudinal ligament was resected. [place] posts were inserted into C7 and T1. The [place] distractor was used to distract the disk space. The anterior annulus of the disk was incised with #[id number] and the disk material was completely resected from the C7-T1 disk space. The posterior annulus of the disk, herniated disk material, and posterior longitudinal ligament were resected layer by layer until the dura was fully exposed and decompressed. The medial aspects of the uncinate processes were resected to decompress the C8 nerve roots. The disk space was sized. A piece of tricortical iliac crest allograft was cut to the size and shape of the disk space and was inserted into the C7-T1 disk space under distraction. The distraction was released and distraction posts were removed. The Synthes 20-mm CSLP variable type anterior cervical plate was selected and affixed to vertebral bodies of C7 and T1 with 2 pairs of 16 x 4.35 mm screws. All screw holes were drilled and tapped prior to screw insertion. All screws were locked with the appropriate locking screws. An excellent construct was obtained. The wound was copiously irrigated with Bacitracin solution. Meticulous hemostasis was secured. A small Hemovac drain was placed and brought out through a separate stab incision. The platysma was closed with 3-0 Vicryl sutures. The skin was closed with 4-0 Monocryl sutures in subcuticular fashion. Steri-Strips and a dressing were applied. The patient was then turned prone onto the operating table with his head stabilized over a prone view. His arms were tucked by his side and his shoulders were retracted with tape. The fluoroscopic C-arm was again positioned in cross-table orientation and the C7-T1 segment was localized across the recently placed plate at C7-T1. The posterior aspect of the neck was prepped and draped in sterile fashion. A midline incision was created overlying the C7-T1 segment and was deepened along the midline to expose the spinous processes and laminae of C7 and T1. Retraction was maintained with a deep self-retaining retractor. The operating microscope was brought in. The spinous processes were resected. A high-speed drill equipped with nova bur was used to drill the C7 and T1 laminae on either side. The laminae were then elevated with a curette and removed to immediately decompress the spinal cord in this region. The residual ligamentum flavum on either side was resected with a 1-mm [place] rongeur to ensure adequate decompression of the cord. The wound was then copiously irrigated with Bacitracin solution. The dura was covered with a layer of [place]am. A small Hemovac drain was placed in this incision as well and the incision was closed in multiple layers with 0 and 2-0 Vicryl sutures and robert. A dressing was applied. The patient was awakened, extubated, and taken to the postanesthesia care unit in stable neurological condition. No intraoperative complications were encountered. Estimated blood loss for the entire procedure was 50 mL. Job#: [id number] LEANDRO
[2017-12-25] MEDS: CEFAZOLIN SOD 1 GM VIAL IV SCH (17:01)
[2017-12-25] MEDS ORDERED: FENTANYL CITRATE/PF 100MCG/2 ML INJ ONE (18:58)
[2017-12-25] MEDS ORDERED: ROCURONIUM BROMIDE 10 MG/ML 5ML VIAL ONE (19:33)
[2017-12-25] MEDS ORDERED: ONDANSETRON HCL INJ 2 MG/ML VIAL ONE (19:33)
[2017-12-25] MEDS ORDERED: PROPOFOL IV EMULSION 10 MG/ML 20 ML VIAL ONE (19:33)
[2017-12-25] MEDS ORDERED: SEVOFLURANE INHAL SOLN 250 ML PEN BTL ONE (19:33)
[2017-12-25] MEDS ORDERED: DEXAMETHASONE SOD PHOS INJ 4 MG/ML VIAL ONE (19:33)
[2017-12-25] MEDS ORDERED: NEOSTIGMINE 5 MG/5ML SYR ONE (19:33)
[2017-12-25] MEDS ORDERED: ACETAMINOPHEN 1000 MG/100 ML IV ONE (19:33)
[2017-12-25] MEDS ORDERED: GLYCOPYRROLATE INJ 1MG/ 5 ML SYR ONE (19:33)
[2017-12-25] MEDS ORDERED: CEFAZOLIN SOD 1 GM VIAL ONE (19:33)
[2017-12-25] MEDS ORDERED: LIDOCAINE HCL 2% LOCAL INJ 5 ML SDV VIAL INJ ONE (19:33)
[2017-12-25 20:00] VITALS: BP_SYST 160; BP_SYST 168; BP_DIAS 73; BP_DIAS 76
[2017-12-25] MEDS ORDERED: ZOLPIDEM TARTRATE 5 MG TAB PO PRN (21:00)
[2017-12-25 22:12] VITALS: BP 144/65
[2017-12-26] VITALS (8 sets, daily range): BP systolic 143–186; BP diastolic 64–81
[2017-12-26] MEDS: CEFAZOLIN SOD 1 GM VIAL IV SCH ×2 (04:30→10:30)
[2017-12-26] MEDS: DEXAMETHASONE SOD PHOS INJ 4 MG/ML VIAL IV SCH ×4 (05:20→23:41)
[2017-12-26] MEDS: OXYCODONE/ACETAMINOPHEN 5-325 1 EACH TABLET PO PRN ×4 (05:24→21:58)
--- NOTE | 2017-12-26 07:07 | Diagnostic Imaging Report ---
C-SPINE 2 VIEWS AP LATERAL HISTORY: Postsurgical pain COMPARISON: None FINDINGS: Bones: Patient is status post anterior fusion of C4-5 and C7-T1 with anterior plate and screws. There is bony fusion at C5-6 and C6-7 No displaced fracture. Osseous alignment is within normal limits. Joints: Degenerative disc changes at C3-4. Soft tissues: The soft tissues appear unremarkable. IMPRESSION: 1. Postsurgical changes related to anterior fusion. 2. No acute osseous abnormalities Signed by: Dr. Edwardo Calixto M.D. on 12/26/2017 7:04 AM
[2017-12-26] MEDS: FAMOTIDINE 20 MG TAB PO SCH ×2 (08:03→16:34)
--- NOTE | 2017-12-26 14:38 | Consultation ---
DATE OF CONSULTATION: December 26, 2017 REFERRING PHYSICIAN: Dr. Manning I would like to thank Dr. Manning for asking me to see Mr. Vick in consultation. REASON FOR CONSULTATION 1. Cervical cord compression with quadriparesis, status post anterior and posterior decompression with fusion. 2. Patient with hypertension. 3. Coronary artery disease. 4. History of previous LA. HISTORY: A 77-year-old male who had a week history of bilateral lower extremity weakness and inability to ambulate. Came into the hospital and had been having some cervical problems, as well as low back problems. Underwent neurosurgical and neurology evaluations. Initially, thought he might have had a low back problem, and MRI of the lumbar spine showed spinal stenosis at L3-L4 and ligamentous hypertrophy. However, the patient had cervical MRI, which showed cervical cord compression at C7-T1 below the level of his previous fusion, which was the main cause of his quadriparesis. Underwent surgery by Dr. Manning yesterday, and postoperatively he is doing well. He is noting some improvement with regards to numbness and to his strength. I am being asked to evaluate for rehab needs. PAST MEDICAL HISTORY: Includes hypertension, hyperlipidemia, peripheral vascular disease, cervical stenosis, history of previous LA. PAST SURGICAL HISTORY: Cholecystectomy, appendectomy, left knee replacement, cervical surgery times 2, carpal tunnel release, and bilateral cataract removal. FAMILY HISTORY: Positive for coronary artery disease. HABITS: History of smoking, but stopped smoking over 30 years ago. Does not report any drinking. ALLERGIES: NO KNOWN DRUG ALLERGIES. NO KNOWN FOOD ALLERGIES. REVIEW OF SYSTEMS: An 11-point review of systems essentially negative, except for the above findings. He has been having some gradual decline in function overall, and has had impaired gait and mobility secondary to the above problems. SOCIAL HISTORY: Lives with his in a 1-story home. Was walking somewhat with supervision. Needs some help to get around. PHYSICAL EXAMINATION VITALS: Temperature 95.3, respirations 16, heart rate 60 and stable, blood pressure 167/74. GENERAL: The patient is awake, alert and very pleasant. He has got a cervical collar on. Follows commands. He says he does not know if he has experienced much improvement, but the fact that he can raise his arms up to about 80 degrees in the supine position, and he has got much more strength. He is now realizing he has gotten stronger since surgery. Shoulder flexion and extension is 3+ to 4-/5 strength bilaterally. Elbow flexion and extension is 4-/5 strength. Parachute Cushion Installer is 4+/5 strength bilaterally. In the lower extremities, he is a little bit stronger on the right leg compared to the left leg. He is not able to fully flex his knees at this point in the supine position, but within range of motion demonstrating 4/5 on the right and 4-/5 on the left. Knee flexion and extension is 4 to 4+/5. Ankle dorsiflexion and plantar flexion is 5/5 strength. White cell count is 7.3, hemoglobin 14.3, hematocrit 43, and platelets of 191,000. Sodium is 141, potassium 4.4, BUN 20, creatinine 0.83. Cervical spine x-ray from today was done and results are pending. IMPRESSION 1. Cervical cord compression at C7-T1 with quadriparesis: Now, status post decompression and is experiencing improved strength in his arms and legs. 2. History of myocardial infarction. 3. Coronary artery disease. 4. Patient with history of hypertension. PLAN: Would make an excellent patient rehab candidate. Definitely could benefit from multidisciplinary inpatient rehab program given his cord compression. Also, work on medical management, bowel and bladder issues. Will follow along with you. Check with insurance for transfer to rehab. Thank you once again for allowing me to participate in the care of this very interesting patient. Job#: [id number] TIFFANY MIRANDA
[2017-12-26] MEDS: CARISOPRODOL 350 MG TAB PO PRN ×2 (15:30→21:58)
[2017-12-27] VITALS (7 sets, daily range): BP systolic 141–198; BP diastolic 64–81
[2017-12-27] MEDS: DEXAMETHASONE SOD PHOS INJ 4 MG/ML VIAL IV SCH ×4 (06:04→23:59)
[2017-12-27] MEDS: CARISOPRODOL 350 MG TAB PO PRN ×3 (06:15→21:50)
[2017-12-27] MEDS: OXYCODONE/ACETAMINOPHEN 5-325 1 EACH TABLET PO PRN ×4 (06:15→21:50)
[2017-12-27] MEDS: FAMOTIDINE 20 MG TAB PO SCH ×2 (07:44→16:50)
--- NOTE | 2017-12-27 14:44 | Progress Note ---
DATE: December 27, 2017 INTERNAL MEDICINE PROGRESS NOTE SUBJECTIVE: Patient had cervical laminectomy. Patient is doing well, awaiting for transfer to [facility] for physical and occupational therapy. PHYSICAL EXAM VITAL SIGNS: Blood pressure 198/81, temperature 96.5, heart rate 66, per minute, respiratory rate 16 per minute, and oxygen saturation 94%. HEART: Regular rhythm. Normal S1, S2 sounds. LUNGS: Clear bilaterally. ABDOMEN: Soft. EXTREMITIES: No evidence of cyanosis or trauma. On the BMP; sodium 141, potassium 4.4, chloride 108, CO2 of 24, BUN 20, creatinine 0.83, glucose 88. On the CBC; white blood count 7.36, hemoglobin 14.3, hematocrit 43.0, and platelet count 191,000. PT 13.6, PTT 26.2, INR 0.95. AST 17, ALT 15, total bilirubin 0.7, and alkaline phosphatase 70. FINAL IMPRESSION 1. Cervical spine stenosis, status post laminectomy. 2. Lumbar spine stenosis. 3. Polyneuropathy. 4. Uncontrolled hypertension. PLAN OF TREATMENT: He is on clonidine 0.1 mg 3 times a day, Benadryl 25 mg q.6 hours, enalapril 0.625 mg IV q.6. hours as needed, Pepcid 20 mg twice a day, Tylenol 325 mg q.6 hours as needed, Zofran 4 mg IV q.4 hours as needed, Ambien 5 mg at night p.r.n. for sleep, ibuprofen 400 mg q.6 hours as needed, Soma 350 mg q.4 hours as needed, [place] 1 tablet q.4 hours as needed for moderate pain, morphine 5 mg IV q.4 hours as needed for severe pain, morphine 2 mg IV q.4 hours as needed for severe pain, promethazine 25 mg IV q.4 hours as needed, dexamethasone 4 mg IV q.6 hours, Dilaudid 2 mg IV q.4 hours q.4 hours as needed. We are going to start the patient on Norvasc 5 mg daily for blood pressure control. Continue physical and occupational therapy. The patient is going to be transferred to [facility] once accepted and blood pressure controlled. Job#: [id number] LEANDRO
[2017-12-27] MEDS: CLONIDINE HCL 0.1 MG TAB PO SCH ×2 (14:53→20:22)
[2017-12-28] VITALS (10 sets, daily range): BP systolic 156–189; BP diastolic 70–80
[2017-12-28] MEDS: CLONIDINE HCL 0.2 MG TAB PO PRN (01:45)
[2017-12-28] MEDS: DEXAMETHASONE SOD PHOS INJ 4 MG/ML VIAL IV SCH ×4 (05:59→23:25)
[2017-12-28] MEDS: FAMOTIDINE 20 MG TAB PO SCH ×2 (08:22→15:50)
[2017-12-28] MEDS: CLONIDINE HCL 0.1 MG TAB PO SCH ×3 (08:23→20:29)
[2017-12-28] MEDS: AMLODIPINE BESYLATE 5 MG TAB PO SCH (08:23)
[2017-12-28] MEDS: OXYCODONE/ACETAMINOPHEN 5-325 1 EACH TABLET PO PRN ×2 (09:37→23:25)
[2017-12-28] MEDS: CARISOPRODOL 350 MG TAB PO PRN ×2 (10:17→23:25)
[2017-12-28] MEDS: LACTULOSE SYRUP 20 GM/30 ML UDC PO PRN ×2 (10:45→15:52)
--- NOTE | 2017-12-28 13:28 | Progress Note ---
DATE: December 28, 2017 INTERNAL MEDICINE PROGRESS NOTE SUBJECTIVE: Patient is doing well. No significant complaints except for neck pain. PHYSICAL EXAM VITAL SIGNS: Blood pressure 198/81, temperature 96.5, heart rate 63 per minute, respiratory rate 16 per minute, oxygen saturation 94%. HEART: Shows regular rhythm. Normal S1, S2 sounds. LUNGS: Clear bilaterally. ABDOMEN: Soft. On the BMP; sodium 141, potassium 4.4, chloride 108, CO2 of 24, BUN 20, creatinine 0.83, glucose 88. On the CBC; white blood count 7.36, hemoglobin is 14.3, hematocrit is 43.0, platelet count 181,000. PT 13.6, INR 0.95, PTT 26.2. AST 17, ALT 15, total bilirubin 0.7, alkaline phosphatase 70. FINAL IMPRESSION 1. Cervical spine stenosis, status post cervical spine surgery. 2. Lumbar spine stenosis. 3. Neuropathy. 4. Uncontrolled hypertension. PLAN OF TREATMENT: Continue clonidine 0.1 mg 3 times a day as needed for hypertension, Benadryl 25 mg q.6 hours, enalapril at 0.625 mg IV q.6 hours as needed, Pepcid 20 mg twice a day, Tylenol 325 mg q.6 hours as needed, Zofran 4 mg IV q.4 hours as needed, Ambien 5 mg at night p.r.n. for sleep, ibuprofen 400 mg p.o. q.6 hours as needed for pain, Soma 1 tablet every 4 hours as needed for muscle spasm, [place] 1 tablet q.4 hours as needed for pain, morphine 5 mg IV every 4 hours as needed, morphine 2 mg IV every 4 hours as needed, promethazine 25 mg IV q.4 hours as needed, dexamethasone phosphate 4 mg q.6 hours, Dilaudid 2 mg IV q.4 hours, magnesium silicate 30 mL q.4 hours. We are going to start the patient also on Norvasc 5 mg daily for better blood pressure control along with lisinopril 10 mg daily also for blood pressure control. Awaiting for a bed at [facility]. Job#: [id number] ARIANNA
[2017-12-28] MEDS: DOCUSATE SODIUM 100 MG CAP PO SCH (17:39)
[2017-12-29 04:15] VITALS: BP 182/79
[2017-12-29] MEDS: CLONIDINE HCL 0.2 MG TAB PO PRN (04:45)
[2017-12-29 06:04] VITALS: BP 170/71
[2017-12-29] MEDS: LACTULOSE SYRUP 20 GM/30 ML UDC PO PRN (06:05)
[2017-12-29 07:29] VITALS: BP 144/64
[2017-12-29] MEDS: OXYCODONE/ACETAMINOPHEN 5-325 1 EACH TABLET PO PRN ×3 (08:40→20:51)
[2017-12-29] MEDS: FAMOTIDINE 20 MG TAB PO SCH ×2 (08:40→16:30)
[2017-12-29] MEDS: LISINOPRIL 10 MG TAB PO SCH (09:00)
[2017-12-29] MEDS: CLONIDINE HCL 0.1 MG TAB PO SCH ×3 (09:46→20:50)
[2017-12-29] MEDS: CARISOPRODOL 350 MG TAB PO PRN ×2 (09:46→15:25)
[2017-12-29] MEDS: AMLODIPINE BESYLATE 5 MG TAB PO SCH (09:46)
[2017-12-29] MEDS: DOCUSATE SODIUM 100 MG CAP PO SCH ×2 (09:46→17:00)
[2017-12-29 13:28] VITALS: BP 173/79
[2017-12-29 16:31] VITALS: BP 179/80
[2017-12-29 20:00] VITALS: BP 149/65
[2017-12-30] VITALS (7 sets, daily range): BP systolic 100–162; BP diastolic 51–93
[2017-12-30] MEDS: OXYCODONE/ACETAMINOPHEN 5-325 1 EACH TABLET PO PRN ×3 (03:46→20:45)
[2017-12-30] MEDS: FAMOTIDINE 20 MG TAB PO SCH ×2 (08:42→16:49)
[2017-12-30] MEDS: LISINOPRIL 10 MG TAB PO SCH (08:43)
[2017-12-30] MEDS: DOCUSATE SODIUM 100 MG CAP PO SCH ×2 (08:43→16:49)
[2017-12-30] MEDS: CLONIDINE HCL 0.1 MG TAB PO SCH ×3 (08:43→20:44)
[2017-12-30] MEDS: AMLODIPINE BESYLATE 5 MG TAB PO SCH (08:43)
[2017-12-30] MEDS: CARISOPRODOL 350 MG TAB PO PRN (09:38)
[2017-12-31] VITALS: BP 108/49
[2017-12-31] MEDS: OXYCODONE/ACETAMINOPHEN 5-325 1 EACH TABLET PO PRN ×3 (02:24→14:19)
[2017-12-31 04:00] VITALS: BP 123/60
[2017-12-31 07:44] VITALS: BP 128/60
[2017-12-31 08:00] VITALS: BP 128/60
[2017-12-31] MEDS: CLONIDINE HCL 0.1 MG TAB PO SCH ×2 (08:02→14:19)
[2017-12-31] MEDS: FAMOTIDINE 20 MG TAB PO SCH ×2 (08:02→15:52)
[2017-12-31] MEDS: DOCUSATE SODIUM 100 MG CAP PO SCH ×2 (08:02→16:33)
[2017-12-31] MEDS: AMLODIPINE BESYLATE 5 MG TAB PO SCH (08:02)
[2017-12-31] MEDS: LISINOPRIL 10 MG TAB PO SCH (08:03)
[2017-12-31] MEDS: LACTULOSE SYRUP 20 GM/30 ML UDC PO PRN (09:41)
[2017-12-31] MEDS: CARISOPRODOL 350 MG TAB PO PRN (11:55)
[2017-12-31 12:00] VITALS: BP 136/65
[2017-12-31 16:00] VITALS: BP 124/57
--- OUTSIDE RECORDS SUMMARY | 2018-01-06 09:28 | XMS REPORT | Clinical Summary ---
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 Disp. Refills Start End Date Status Date furosemide (LASIX) 20 mg Take 20 mg by mouth Active tablet daily. pravastatin (PRAVACHOL) Take 20 mg by mouth Active 20 MG tablet daily. metoprolol tartrate Take 25 mg by mouth 2 07/16/19 Discontin (LOPRESSOR) 25 mg tablet (two) times a day. 18 ued metoprolol tartrate Take 0.5 tablets (12.5 mg 30 tablet 2 07/16/19 10/14/19 (LOPRESSOR) 25 mg tablet total) by mouth 2 (two) 18 18 times a day for 90 days. NIFEdipine XL (PROCARDIA Take 1 tablet (30 mg 30 tablet 2 07/17/19 10/15/19 XL) 30 MG 24 hr tablet total) by mouth daily for 18 18 90 days. aspirin (ECOTRIN) 81 MG Take 1 tablet (81 mg 30 tablet 0 07/17/19 08/16/19 enteric coated tablet total) by mouth daily for 18 18 30 days. Active Problems Problem Noted Date Chest pain 07/13/2017 Encounters Date Type Specialty Care Team Description 07/16/2017 Patient Quality Michelle Barr, [facility] Outreach 07/14/2017 Procedure Pass General Internal Medicine 07/14/2017 Procedure Pass General Internal Medicine 07/13/2017 Emergency General Internal Medicine Sabine Atwood, Chest pain, unspecified - type (Primary Dx); 07/15/2017 Gabrielle Lorenzo MD Dizziness; Acute diastolic congestive heart failure 07/13/2017 Procedure Pass General Internal Medicine after 12/22/2016 Social History Tobacco Use Types Packs/Day Years Used Date Never Smoker Smokeless Tobacco: Never Used Alcohol Use Drinks/Week oz/Week Comments No Sex Assigned at Date Recorded Not on file Last Filed Vital Signs Vital Sign Reading Time Taken Blood Pressure 140/62 07/15/2017 8:04 AM CDT Pulse 73 07/15/2017 8:04 AM CDT Temperature 36.9 C (98.5 F) 07/15/2017 8:04 AM CDT Respiratory Rate 16 07/15/2017 8:04 AM CDT Oxygen Saturation 95% 07/15/2017 8:04 AM CDT Inhaled Oxygen - - Concentration Weight 109 kg (240 lb) 07/13/2017 12:17 PM CDT Height 177.8 cm (5' 10") 07/13/2017 12:17 PM CDT Body Mass Index 34.44 07/13/2017 12:17 PM CDT Plan of Treatment Health Maintenance Due Date Last Done Comments SHINGRIX VACCINE (#1) 1990 ZOSTER VACCINE 2000 PNEUMOCOCCAL 2005 POLYSACCHARIDE VACCINE AGE 65 AND OVER PNEUMOCOCCAL-13 2005 INFLUENZA VACCINE 10/22/2017 Procedures Procedure Name Priority Date/Time Associated Diagnosis Comments ZZESTIMATED GFR STAT 07/15/2017 Results for this 9:34 AM CDT procedure are in the results section. HC COMPLETE BLD COUNT STAT 07/15/2017 Results for this W/AUTO DIFF 9:34 AM CDT procedure are in the results section. B NATRIURETIC PEPTIDE STAT 07/15/2017 Results for this 9:34 AM CDT procedure are in the results section. BASIC METABOLIC PANEL STAT 07/15/2017 Results for this 9:34 AM CDT procedure are in the results section. CV STRESS TEST NUCLEAR Routine 07/14/2017 Results for this CARDIO 12:49 PM CDT procedure are in the results section. MRA HEAD WO CONTRAST STAT 07/14/2017 Results for this 12:19 PM CDT procedure are in the results section. MRI BRAIN WO CONTRAST STAT 07/14/2017 Results for this 12:18 PM CDT procedure are in the results section. US DUPLEX VENOUS LOWER STAT 07/14/2017 Results for this EXTREMITY BILATERAL 9:21 AM CDT procedure are in the results section. ECHOCARDIOGRAM 2D Routine 07/14/2017 Results for this COMPLETE W MMODE SPECTRAL 9:13 AM CDT procedure are in the COLOR DOPPLER ([id number]) results section. ZZESTIMATED GFR Routine 07/14/2017 Results for this 5:45 AM CDT procedure are in the results section. THYROID STIMULATING Routine 07/14/2017 Results for this HORMONE 5:45 AM CDT procedure are in the results section. T4, FREE Routine 07/14/2017 Results for this 5:45 AM CDT procedure are in the results section. T3, FREE Routine 07/14/2017 Results for this 5:45 AM CDT procedure are in the results section. LIPID PANEL Routine 07/14/2017 Results for this 5:45 AM CDT procedure are in the results section. HEPATIC FUNCTION PANEL Routine 07/14/2017 Results for this 5:45 AM CDT procedure are in the results section. HC COMPLETE BLD COUNT Routine 07/14/2017 Results for this W/AUTO DIFF 5:45 AM CDT procedure are in the results section. BASIC METABOLIC PANEL Routine 07/14/2017 Results for this 5:45 AM CDT procedure are in the results section. CT ANGIOGRAM PE CHEST STAT 07/13/2017 Results for this 11:08 PM CDT procedure are in the results section. MRA NECK WO CONTRAST STAT 07/13/2017 Results for this 6:48 PM CDT procedure are in the results section. TROPONIN Timed 07/13/2017 Results for this 5:51 PM CDT procedure are in the results section. XR CHEST 1 VW PORTABLE STAT 07/13/2017 Results for this 1:49 PM CDT procedure are in the results section. ECG 12-LEAD STAT 07/13/2017 Results for this 1:48 PM CDT procedure are in the results section. D-DIMER STAT 07/13/2017 Results for this 1:33 PM CDT procedure are in the results section. ZZESTIMATED GFR STAT 07/13/2017 Results for this 1:33 PM CDT procedure are in the results section. B NATRIURETIC PEPTIDE STAT 07/13/2017 Results for this 1:33 PM CDT procedure are in the results section. TROPONIN STAT 07/13/2017 Results for this 1:33 PM CDT procedure are in the results section. LIPASE LEVEL STAT 07/13/2017 Results for this 1:33 PM CDT procedure are in the results section. HEPATIC FUNCTION PANEL STAT 07/13/2017 Results for this 1:33 PM CDT procedure are in the results section. TYPE AND SCREEN Routine 07/13/2017 Results for this 1:33 PM CDT procedure are in the results section. PARTIAL THROMBOPLASTIN STAT 07/13/2017 Results for this TIME (PTT) 1:33 PM CDT procedure are in the results section. PROTHROMBIN TIME WITH INR STAT 07/13/2017 Results for this 1:33 PM CDT procedure are in the results section. BASIC METABOLIC PANEL STAT 07/13/2017 Results for this 1:33 PM CDT procedure are in the results section. HC COMPLETE BLD COUNT STAT 07/13/2017 Results for this W/AUTO DIFF 1:33 PM CDT procedure are in the results section. ECG ED PRELIMINARY Routine 07/13/2017 Results for this INTERPRETATION 12:43 PM CDT procedure are in the results section. URINALYSIS SCREEN AND STAT 07/13/2017 Results for this MICROSCOPY, WITH REFLEX 12:35 PM CDT procedure are in the TO CULTURE results section. URINE CULTURE STAT 07/13/2017 Results for this 12:35 PM CDT procedure are in the results section. after 12/22/2016 Results * Estimated GFR (07/15/2017 9:34 AM) Only the most recent of 3 results within the time period is included. GFR Non Af Amer 82 mL/min/1.73 m2 [facility] DEPARTMENT OF PATHOLOGY AND GENOMIC MEDICINE GFR Af Amer >90 mL/min/1.73 m2 [facility] DEPARTMENT OF Comment: PATHOLOGY AND Chronic kidney disease: <60 GENOMIC MEDICINE mL/min/1.73m2 Kidney failure: <15 mL/min/1.73m2 The estimated GFR is calculated from the IDMS-traceable Modification of Diet in Renal Disease Equation. The accuracy of the calculation is poor when the creatinine is normal. Calculated values >90 mL/min/1.73m2 are not reported. This equation has not been validated in children (<18 years), women, the elderly (>70 years), or ethnic groups other than Caucasians and Americans. Specimen Plasma specimen Performing Organization Address City/State/Zipcode Phone Number [facility] DEPARTMENT OF [address] [place] [address] PATHOLOGY AND GENOMIC MEDICINE * CBC with platelet and differential (07/15/2017 9:34 AM) Only the most recent of 3 results within the time period is included. WBC 6.7 4.2 - 11.0 k/uL [facility] DEPARTMENT OF PATHOLOGY AND GENOMIC MEDICINE RBC 4.64 4.04 - 5.86 m/uL [facility] DEPARTMENT OF PATHOLOGY AND GENOMIC MEDICINE HGB 14.6 13.0 - 17.3 g/dL [facility] DEPARTMENT OF PATHOLOGY AND GENOMIC MEDICINE HCT 43.8 34.0 - 45.0 % [facility] DEPARTMENT OF PATHOLOGY AND GENOMIC MEDICINE MCV 94.4 80.0 - 98.0 fL [facility] DEPARTMENT OF PATHOLOGY AND GENOMIC MEDICINE MCH 31.5 27.0 - 34.0 pg [facility] DEPARTMENT PATHOLOGY AND GENOMIC MEDICINE MCHC 33.3 31.5 - 36.5 g/dL [facility] DEPARTMENT OF PATHOLOGY AND GENOMIC MEDICINE RDW - SD 48.2 37.0 - 51.0 fL [facility] DEPARTMENT OF PATHOLOGY AND GENOMIC MEDICINE MPV 8.7 7.4 - 10.4 fL [facility] DEPARTMENT OF PATHOLOGY AND GENOMIC MEDICINE Platelet count 179 150 - 400 k/uL [facility] DEPARTMENT PATHOLOGY AND GENOMIC MEDICINE Nucleated RBC 0.00 /100 WBC [facility] DEPARTMENT OF PATHOLOGY AND GENOMIC MEDICINE Neutrophils 59.9 36.0 - 66.0 % [facility] DEPARTMENT PATHOLOGY AND GENOMIC MEDICINE Lymphocytes 26.4 24.0 - 44.0 % [facility] DEPARTMENT OF PATHOLOGY AND GENOMIC MEDICINE Monocytes 7.1 (H) 0.0 - 6.0 % [facility] DEPARTMENT OF PATHOLOGY AND GENOMIC MEDICINE Eosinophils 5.5 0.0 - 6.0 % [facility] DEPARTMENT PATHOLOGY AND GENOMIC MEDICINE Basophils 0.7 0.0 - 1.2 % [facility] PATHOLOGY AND GENOMIC MEDICINE Immature granulocytes 0.4 0.0 - 1.0 % [facility] PATHOLOGY AND GENOMIC MEDICINE Specimen Blood Performing Organization Address City/[facility]/[place] [address] PATHOLOGY AND [facility] * B natriuretic peptide (07/15/2017 9:34 AM) Only the most recent of 2 results within the time period is included. BNP 90 0 - 100 pg/mL [facility] PATHOLOGY AND GENOMIC MEDICINE Specimen Blood Performing Organization Address City/[facility]/Zipcode Phone Number [address] * Basic metabolic panel (07/15/2017 9:34 AM) Only the most recent of 3 results within the time period is included. Sodium 142 135 - 150 mEq/L [facility] PATHOLOGY AND GENOMIC MEDICINE Potassium 4.2 3.5 - 5.0 mEq/L [facility] DEPARTMENT OF PATHOLOGY AND GENOMIC MEDICINE Chloride 106 100 - 109 mEq/L [facility] DEPARTMENT OF PATHOLOGY AND GENOMIC MEDICINE CO2 28 24 - 32 mmol/L [facility] DEPARTMENT OF PATHOLOGY AND GENOMIC MEDICINE Anion gap 8 7 - 15 mEq/L [facility] DEPARTMENT OF Comment: PATHOLOGY AND Starting from June [facility] , anion gap calculation no longer incorporates potassium. Please note the change. BUN 22 (H) 7 - 18 mg/dL [facility] DEPARTMENT OF PATHOLOGY AND GENOMIC MEDICINE Creatinine 0.9 0.8 - 1.5 mg/dL [facility] DEPARTMENT OF PATHOLOGY AND GENOMIC MEDICINE Glucose 98 65 - 100 mg/dL [facility] DEPARTMENT OF PATHOLOGY AND GENOMIC MEDICINE Calcium 8.6 8.6 - 10.7 mg/dL [facility] DEPARTMENT OF PATHOLOGY AND [employer] MEDICINE Specimen Plasma specimen Performing Organization Address City/State/Zipcode Phone Number [place] [address] [place] [address] PATHOLOGY AND GENOMIC MEDICINE * CV stress test (07/14/2017 12:49 PM) Resting HR 59 H MUSE Resting BP 163 H MUSE Peak MET Achieved 1.0 H MUSE Protocol Name CHARLIE H MUSE Time in Exercise Phase 00:01:01 [facility] MUSE Max Systolic BP 163 [facility] MUSE Max Diastolic BP 72 [facility] MUSE Max Heart Rate 75 [facility] M[facility] Max Predicted Heart Rate 144 H MUSE Target HR Formula (220 - Age)*100% [facility] MUSE Test Indication Chest Discomfort [facility]USE Arrhy During Ex none [facility] ECG Interp Before EX Normal [facility] ECG Interp During Ex none [facility] M[facility] Ex Summary Comment Normal stress test, MYOVIEW TO H MUSE FOLLOW Chest Pain Statement none H MUSE Overall HR Response to appropriate [facility] MUSE Exercise Overall BP Response To normal resting BP - [facility] MUSE Exercise appropriate response Reason for Termination Protocol completed [facility] MUSE Stress Test Impression Normal stress test, MYOVIEW TO [facility] MUSE FOLLOW-Nuclear report pending - Performing Organization Address City/State/Zipcode Phone Number [facility] [employer] [address] [place] [address] * MRA Head Wo Contrast (07/14/2017 12:19 PM) Narrative Performed At EXAMINATION: MRA HEAD WO CONTRAST [facility] CLINICAL HISTORY: ams. Evaluate for stroke and artery stenosis COMPARISON:None. TECHNIQUE: [id number] MRA images of the [place] vessels were obtained with multiplanar and 3-D reconstructive algorithms. FINDINGS: There is flow in the anterior and posterior communicating arteries. There is no evidence of large vessel occlusion at the level of the [place]. The distal vertebral arteries, the basilar artery and distal internal carotid do not show significant focal stenosis. The distal right vertebral artery is dominant. IMPRESSION: Unremarkable MRA of the [place] with no significant abnormality. [id number] Procedure Note Interface, Radiology Results 07/14/2017 12:34 PM CDT EXAMINATION: MRA HEAD WO CONTRAST CLINICAL HISTORY: ams. Evaluate for stroke and artery stenosis COMPARISON: None. TECHNIQUE: [id number] MRA images of the [place] vessels were obtained with multiplanar and 3-D reconstructive algorithms. FINDINGS: There is flow in the anterior and posterior communicating arteries. There is no evidence of large vessel occlusion at the level of the [place]. The distal vertebral arteries, the basilar artery and distal internal carotid do not show significant focal stenosis. The distal right vertebral artery is dominant. IMPRESSION: Unremarkable MRA of the [place] with no significant abnormality. [id number] Performing Organization Address City/State/Zipcode Phone Number [facility] [address] [place] [address] * MRI Brain Wo Contrast (07/14/2017 12:18 PM) Narrative Performed At EXAMINATION:MRI BRAIN WO CONTRAST [facility] CLINICAL HISTORY:DECREASED ALERTNESS, dizzinessnumbness COMPARISON:None. FINDINGS: 1. Diffusion images demonstrate no evidence of acute ischemia. 2.Conventional images demonstrate minimal nonspecific cerebral white matter microvascular changes. There is a possible tiny chronic cortical infarct superiorly in the cerebellum on the left. There is mild to moderate cerebral volume loss which is both central and cortical. 3.There is small amount of fluid in the mastoids bilaterally. There is minimal mucosal thickening in the ethmoid and sphenoid sinuses. IMPRESSION: No acute abnormality. [facility]-[id number] Procedure Note Interface, Radiology Results 07/14/2017 12:30 PM CDT EXAMINATION: MRI BRAIN WO CONTRAST CLINICAL HISTORY: DECREASED ALERTNESS, dizziness numbness COMPARISON: None. FINDINGS: 1. Diffusion images demonstrate no evidence of acute ischemia. 2. Conventional images demonstrate minimal nonspecific cerebral white matter microvascular changes. There is a possible tiny chronic cortical infarct superiorly in the cerebellum on the left. There is mild to moderate cerebral volume loss which is both central and cortical. 3. There is small amount of fluid in the mastoids bilaterally. There is minimal mucosal thickening in the ethmoid and sphenoid sinuses. IMPRESSION: No acute abnormality. [facility]-[id number] Performing Organization Address [facility] Phone Number [facility] [address] [place] [address] * PV duplex venous lower extremity (07/14/2017 9:21 AM) Narrative Performed At EXAMINATION:US DUPLEX VENOUS LOWER [facility]REMITY [facility]AL [facility]: edema COMPARISON:None. TECHNIQUE:Grayscale, color Doppler, and spectral waveform analysis of the bilateral lower extremity deep venous systems was performed. The bilateral common femoral, superficial femoral, proximal deep femoral, greater saphenous, and popliteal veins were evaluated. The calf vessels were also evaluated. FINDINGS: The bilateral common femoral, superficial femoral, and popliteal veins are compressible. They demonstrate normal venous waveforms and response to augmentation. There is flow in the visualized calf veins. There is no evidence of a popliteal or Howell's cyst. IMPRESSION: Negative bilateral lower extremity venous Doppler examination. There is no evidence of deep venous thrombosis. [id number] Procedure Note Interface, Radiology Results Incoming - 07/14/2017 9:25 AM CDT EXAMINATION: US DUPLEX VENOUS LOWER EXTREMITY BILATERAL CLINICAL HISTORY: edema COMPARISON: None. TECHNIQUE: Grayscale, color Doppler, and spectral waveform analysis of the bilateral lower extremity deep venous systems was performed. The bilateral common femoral, superficial femoral, proximal deep femoral, greater saphenous, and popliteal veins were evaluated. The calf vessels were also evaluated. FINDINGS: The bilateral common femoral, superficial femoral, and popliteal veins are compressible. They demonstrate normal venous waveforms and response to augmentation. There is flow in the visualized calf veins. There is no evidence of a popliteal or Howell's cyst. IMPRESSION: Negative bilateral lower extremity venous Doppler examination. There is no evidence of deep venous thrombosis. [id number] Performing Organization Address [facility] Phone Number [facility] [address] [place] [address] * Echocardiogram complete w contrast and 3D if needed (07/14/2017 9:13 AM) Velocity Ratio (V1/V2) 0.88 m/s [facility] IVS,d 1.28 (A) 0.6 - 1.2 cm [facility] EF 51.99 % [facility] LVPWD,d 1.37 cm [facility] AoV Mean PG 4.10 mmHg [facility] AV LVOT peak gradient 5.86 mmHg [facility] MV mean gradient 1.43 mmHg [facility] MV valve area p 1/2 1.98 cm2 [facility] method PV Pk Grad 2.35 mmHg [facility] E/A ratio 0.58 [facility] E wave decelartion time 382.90 msec [facility] LVOT Diam,S 2.26 cm [facility] LVOT area 4.01 cm2 [facility] LVOT Vmax 1.21 m/s [facility] LVOT VTI 0.26 m [facility] AoV Peak PG 7.65 mmHg [facility] MV Peak E Iggy 0.57 m/s [facility] MV stenosis pressure 1/2 111.04 ms [facility] time MV Peak A Iggy 0.99 m/s [facility] Ao Root Diameter 3.89 cm [facility] AoV Area, Vmax 3.52 cm2 [facility] AoV Area, VTI 3.58 cm2 [facility] AoV Vmax 1.38 m/s [facility] IVS/LVPW,2D 0.94 [facility] Left Atrium Dimension 4.00 cm [facility] Anterior LV,d 5.26 cm [facility] LV,s 3.85 cm [facility] PV VMAX 0.77 m/s [facility] TR Vpeak 2.15 mm/s [facility] MV E A ratio 0.57 mmHg [facility] TR pk grad 18.47 mmHg [facility] MR peak grad 4.09 mmHg [facility] Ao Root Diameter 3.89 cm [facility] AR Press Half Time 879.71 ms [facility] LV SYS VOL 63.77 ml [facility] LV CARRILLO VOL 132.83 ml [facility] LV SV Teich 2D 69.06 ml [facility] LV Vol s Teich PSAX 63.77 ml [facility] LVOT CO 5.85 l/min [facility] LVOT HR for LVOT CO 55.46 bpm [facility] MV Vmax 1.01 m [facility] MV VTI Tips 0.29 m [facility] AoV Vmn 0.95 [facility] AR slope 0.99 [facility] Ar Vmax 2.99 [facility] IVS s 2D 1.62 [facility] LV FS Cube 2D 26.84 [facility] LV FS Teich 2D 26.84 [facility] AoV VTI 0.29 m [facility] LV EF,2D 60.83 % [facility] MV AE ratio 1.74 [facility] LVOT Vmn 0.81 [facility] Aov area Vmn 3.45 cm2 [facility] LVOT mean grad 2.95 mmHg [facility] MAX Pred HR 143.24 [facility] 85 of MPHR 121.76 [facility] AR DT 3,033.49 msec [facility] AR pk grad 35.78 mmHg [facility] Calc MPHR 143.24 bpm [facility] IVS pct thck PLAX 26.23 % [facility] LV SV Cube 2D 88.39 ml [facility] LV vol d cube 2D 145.30 ml [facility] LV vol s cube 2D 56.91 ml [facility] LVPW pct thck PLAX 30.38 % [facility] LVPW s PLAX 1.79 cm [facility] MV Decel slope 1.48 m/s2 [facility] Pred Exer Dur R1 6.13 [facility] Pred METS R1 6.49 [facility] Narrative Performed At [facility] The left ventricle chamber size is normal. Left Ventricular ejection fraction is 50 - 55%. There is mild left ventricular Spectral Doppler shows impaired relaxation pattern of left ventricular diastolic filling. Stage II diastolic dysfunction with pseudonormal filling dynamics. Performing Organization Address [facility]/Zipcode Phone Number [facility] [address] [place] [address] * T3, free (07/14/2017 5:45 AM) T3, free 2.98 2.18 - 3.98 pmol/L [facility] DEPARTMENT OF PATHOLOGY AND GENOMIC MEDICINE Specimen Plasma specimen Performing Organization Address [facility]/Zipcode Phone Number [address] [place] [address] PATHOLOGY AND GENOMIC MEDICINE * Thyroid stimulating hormone (07/14/2017 5:45 AM) TSH 1.30 0.38 - 4.82 uIU/mL [facility] DEPARTMENT OF PATHOLOGY AND GENOMIC MEDICINE Specimen Plasma specimen Performing Organization Address [facility] Cent[facility]ode Phone Number [facility] [address] [place] [address] PATHOLOGY AND GENOMIC MEDICINE * T4, free (07/14/2017 5:45 AM) T4, free 1.20 0.70 - 1.61 ng/dL [facility] DEPARTMENT OF PATHOLOGY AND GENOMIC MEDICINE Specimen Plasma specimen Performing Organization Address [facility] [place] [address] PATHOLOGY AND GENOMIC MEDICINE * Hepatic function panel (07/14/2017 5:45 AM) Only the most recent of 2 results within the time period is included. Albumin 3.4 3.2 - 5.0 g/dL [facility] DEPARTMENT OF PATHOLOGY AND GENOMIC MEDICINE Total bilirubin 0.8 0.2 - 1.2 mg/dL [facility] DEPARTMENT OF PATHOLOGY AND GENOMIC MEDICINE Bilirubin direct 0.2 0.0 - 0.4 mg/dL [facility] DEPARTMENT OF PATHOLOGY AND GENOMIC MEDICINE Alkaline phosphatase 77 30 - 120 U/L [facility] DEPARTMENT OF PATHOLOGY AND GENOMIC MEDICINE Protein 6.7 6.3 - 8.2 g/dL [facility] DEPARTMENT OF PATHOLOGY AND GENOMIC MEDICINE ALT 27 (L) 30 - 65 U/L [facility] DEPARTMENT OF PATHOLOGY AND GENOMIC MEDICINE AST 17 15 - 37 U/L [facility] DEPARTMENT OF PATHOLOGY AND GENOMIC MEDICINE Specimen Plasma specimen Performing Organization Address [facility] [place] [address] PATHOLOGY AND GENOMIC MEDICINE * Lipid panel (07/14/2017 5:45 AM) Cholesterol 166 120 - 200 mg/dL [facility] DEPARTMENT OF PATHOLOGY AND GENOMIC MEDICINE Triglycerides 81 50 - 150 mg/dL [facility] DEPARTMENT OF PATHOLOGY AND GENOMIC MEDICINE HDL cholesterol 49 40 - 60 mg/dL [facility] DEPARTMENT OF PATHOLOGY AND GENOMIC MEDICINE LDL cholesterol 123Comment: Result obtained by mg/dL [facility] DEPARTMENT OF direct LDL measurement PATHOLOGY AND GENOMIC MEDICINE Lipid panel See below [facility] DEPARTMENT OF interpretation Comment: PATHOLOGY AND Total Cholesterol GENOMIC MEDICINE (mg/dL) LDL Cholesterol (mg/dL) <200 Desirable <100 Optimal 200-239Borderline -[id number] or above optimal >=240High 130-159Borderline- high 160-189High >=190Very high HDL Cholesterol (mg/dL) Triglycerides (mg/dL) <40Low <150 Normal >=60 High 150-199Borderline- high 200-499High >=500Very high Risk Catergories that modify LDL goals. Risk Catergories LDL goal (mg/dL) CHD and CHD risk equivalent <100 (10-year risk >20%) Multiple (2+) risk factors <130 (10-year risk=<20%) 0-1 risk factors <160 (<10-year risk) Defining levels of lipids in metabolic syndrome Triglycerides >=150 mg/dL HDL Cholesterol Men <40 mg/dL Women <50 mg/dL Non-HDL cholesterol is a second target for therapy in persons with high triglycerides (>=200 mg/dL) Specimen Plasma specimen Performing Organization Address City/State/Zipcode Phone Number [place] [address] [place] [address] PATHOLOGY AND GENOMIC MEDICINE * CT Angiogram Pe Chest (07/13/2017 11:08 PM) Narrative Performed At EXAMINATION: [facility] CT ANGIOGRAM PE CHEST CLINICAL HISTORY: Chest Pain, d dimer elevated TECHNIQUE: CT angiographic images of the chest were obtained during intravenous administration of iodinated contrast. Computerized reformatted images and 3-D MIP images were also obtained and archived (CT pulmonary embolus protocol). CT imaging was performed with iterative reconstruction technique and/or automated exposure control to reduce radiation dose. COMPARISON: None. IMPRESSION: Groundglass densities are seen of the pulmonary parenchyma, with bronchial wall thickening and interlobular septal thickening, compatible with mild vascular congestion/edema. No effusions or pneumothorax. The airway is patent. Heart size is upper limits of normal. Trace pericardial effusion. Mitral valve calcifications and aortic valve consultations. Coronary artery calcifications are identified. No mediastinal or hilar lymphadenopathy. Main pulmonary artery is dilated to 3.4 cm, compatible with pulmonary arterial hypertension. No large main branch, saddle region, or proximal segmental filling defects are seen to suggest pulmonary artery embolus. Ascending aortic aneurysm is seen measuring 4 cm. Atherosclerotic vascular calcifications are seen. Patient is status post cholecystectomy. Diverticulosis is seen of the large bowel. Arising from right adrenal gland, there is a 1.3 cm lipid rich adrenal adenoma. No acute osseous abnormalities. Mild degenerative change of lower thoracic spine. Conclusion: No pulmonary embolus. Congestive heart failure, with mild vascular congestion/edema. [id number] Procedure Note Interface, Radiology Results Incoming - 07/13/2017 11:24 PM CDT EXAMINATION: CT ANGIOGRAM PE CHEST CLINICAL HISTORY: Chest Pain, d dimer elevated TECHNIQUE: CT angiographic images of the chest were obtained during intravenous administration of iodinated contrast. Computerized reformatted images and 3-D MIP images were also obtained and archived (CT pulmonary embolus protocol). CT imaging was performed with iterative reconstruction technique and/or automated exposure control to reduce radiation dose. COMPARISON: None. IMPRESSION: Groundglass densities are seen of the pulmonary parenchyma, with bronchial wall thickening and interlobular septal thickening, compatible with mild vascular congestion/edema. No effusions or pneumothorax. The airway is patent. Heart size is upper limits of normal. Trace pericardial effusion. Mitral valve calcifications and aortic valve consultations. Coronary artery calcifications are identified. No mediastinal or hilar lymphadenopathy. Main pulmonary artery is dilated to 3.4 cm, compatible with pulmonary arterial hypertension. No large main branch, saddle region, or proximal segmental filling defects are seen to suggest pulmonary artery embolus. Ascending aortic aneurysm is seen measuring 4 cm. Atherosclerotic vascular calcifications are seen. Patient is status post cholecystectomy. Diverticulosis is seen of the large bowel. Arising from right adrenal gland, there is a 1.3 cm lipid rich adrenal adenoma. No acute osseous abnormalities. Mild degenerative change of lower thoracic spine. Conclusion: No pulmonary embolus. Congestive heart failure, with mild vascular congestion/edema. [id number] Performing Organization Address City/State/Zipcode Phone Number [facility] [address] [place] [address] * MRA Neck Wo Contrast (07/13/2017 6:48 PM) Narrative Performed At [facility] EXAMINATION:MRA NECK WO CONTRAST CLINICAL HISTORY:ams COMPARISON:None. TECHNIQUE: Neck MRA using 2D and 3D [id number] technique with multi-planar MIP and 3D reconstruction. FINDINGS: The imaged bilateral cervical carotid and vertebral arterial systems appear patent without evidence of aneurysm, dissection, or significant stenosis (0% by NASCET criteria). Retropharyngeal course of portions of the bilateral cervical carotid systems. Dominant right vertebral artery. Anterior cervical spinal fusion. IMPRESSION: Unremarkable neck MRA with no significant carotid or vertebral artery stenosis. [id number] Procedure Note Hm Interface, Radiology Results Incoming - 07/13/2017 7:02 PM CDT EXAMINATION: MRA NECK WO CONTRAST CLINICAL HISTORY: ams COMPARISON: None. TECHNIQUE: Neck MRA using 2D and 3D [id number] technique with multi-planar MIP and 3D reconstruction. FINDINGS: The imaged bilateral cervical carotid and vertebral arterial systems appear patent without evidence of aneurysm, dissection, or significant stenosis (0% by NASCET criteria). Retropharyngeal course of portions of the bilateral cervical carotid systems. Dominant right vertebral artery. Anterior cervical spinal fusion. IMPRESSION: Unremarkable neck MRA with no significant carotid or vertebral artery stenosis. [id number] Performing Organization Address City/State/Zipcode Phone Number [facility] [address] [place] [address] * Troponin (07/13/2017 5:51 PM) Only the most recent of 2 results within the time period is included. Troponin <0.01 0.00 - 0.60 ng/mL [facility] DEPARTMENT OF Comment: PATHOLOGY AND 0.11 - 1.49 GENOMIC MEDICINE ng/mlMay indicate increased risk of acute coronary syndrome. >=1.5 ng/ml Consistent with acute myocardial infarction. The diagnostic value of a single normal or non-diagnostic result is questionable.Serial samples at 2-6 hour intervals are required to rule out acute myocardial injury. Specimen Plasma specimen Performing Organization Address City/[facility]/Zipcode Phone Number [place] [address] [place] [address] PATHOLOGY AND GENOMIC MEDICINE * XR Chest 1 Vw Portable (07/13/2017 1:49 PM) Narrative Performed At EXAMINATION:XR CHEST 1 VW PORTABLE [facility] CLINICAL HISTORY:Chest Pain COMPARISON:None. IMPRESSION: 1.The cardiomediastinal silhouette is slightly enlarged. 2.Minimal linear atelectasis is present right lung base. There is no evidence pulmonary edema. There are no pleural effusions. 3.Postoperative changes are present lower cervical spine. [id number] Procedure Note Interface, Radiology Results Incoming - 07/13/2017 2:01 PM CDT EXAMINATION: XR CHEST 1 VW PORTABLE CLINICAL HISTORY: Chest Pain COMPARISON: None. IMPRESSION: 1. The cardiomediastinal silhouette is slightly enlarged. 2. Minimal linear atelectasis is present right lung base. There is no evidence pulmonary edema. There are no pleural effusions. 3. Postoperative changes are present lower cervical spine. [id number] Performing Organization Address [facility]/Zipcode Phone Number [facility] [address] [place] [address] * ECG 12 lead (07/13/2017 1:48 PM) Ventricular rate 57 [facility] Atrial rate 57 [facility] CO interval 228 [facility] QRSD interval 96 [facility] QT interval 448 [facility] QTC interval 436 [facility] P axis 1 66 [facility] M[facility] QRS axis 1 -20 [facility] MUSE T wave axis 53 [facility] EKG impression Sinus bradycardia with 1st [facility] MUSE degree AV block-Otherwise normal ECG-No previous ECGs available- Performing Organization Address [facility] Phone Number [facility] MUSE [address] [place] [address] * Partial thromboplastin time, activated (07/13/2017 1:33 PM) PTT 27.2 23.0 - 36.0 sec [facility] DEPARTMENT OF Comment: PATHOLOGY AND PTT therapeutic range for GENOMIC MEDICINE unfractionated heparin is 61.0-112.0 seconds which corresponds to Anti-Xa 0.3-0.7 U/ml. Note:Change in Panic Value The PTT Panic Value is changing from 110 sec. to 100 sec. due to new instrumentation and reagents. Correlation studies have been performed to validate this result. Specimen Blood Performing Organization Address [facility] Cent[facility]ode Phone Number [facility] DEPARTMENT [address] [place] [address] PATHOLOGY AND GENOMIC MEDICINE * Prothrombin time with INR (07/13/2017 1:33 PM) Prothrombin time 14.0 12.0 - 15.0 sec [facility] DEPARTMENT OF PATHOLOGY AND GENOMIC MEDICINE INR 1.07 0.92 - 1.12 [facility] DEPARTMENT OF Comment: PATHOLOGY AND For patients on anticoagulant GENOMIC MEDICINE therapy, reference ranges below: Indication: INR Value Treatment of Venous Thrombosis, 2.0-3.0 pulmonary emboli, or prophylaxis of a venous thrombosis, or systemic emboli. High dose, high risk patients 3.0-4.5 with mechanical valves. NOTE:INR values over 3.0 are sometimes associated with gastrointestinal hemorrhage, especially values over 4.0. Specimen Blood Performing Organization Address [facility] Centercode Phone Number [facility] [address] [place] [address] PATHOLOGY AND GENOMIC MEDICINE * D-dimer (07/13/2017 1:33 PM) D-dimer 0.60 (H) 0.00 - 0.40 ug/mL FEU [facility] DEPARTMENT OF Comment: PATHOLOGY AND Units are ug/ml Fibrinogen GENOMIC MEDICINE Equivalent Unit. When combined with low clinical probability, D-dimer results of less than 0.5 ug/ml FEU have a good negativepredictive value in excluding PE or DVT. For D-dimer results greater than 0.5ug/ml FEU further testing is indicated if PE or DVT is suspectedclinically. Elevated D-dimer results have been reported in DVT, PE, and DIC cases and may indicate the presence of a clot. D-dimer results may be elevated due to old age, , inflammatory diseases, trauma, post-operative states, sepsis, and malignancies. Specimen Blood Performing Organization Address [facility] [place] [address] PATHOLOGY AND GENOMIC MEDICINE * Type and screen (07/13/2017 1:33 PM) ABO grouping A [facility] DEPARTMENT OF PATHOLOGY AND GENOMIC MEDICINE Rh type POS [facility] DEPARTMENT OF PATHOLOGY AND GENOMIC MEDICINE Antibody screen (gel) NEG [facility] DEPARTMENT OF PATHOLOGY AND GENOMIC MEDICINE Specimen Blood Performing Organization Address [facility] [place] [address] PATHOLOGY AND GENOMIC MEDICINE * Lipase level (07/13/2017 1:33 PM) Lipase 56 (L) 65 - 230 U/L [facility] DEPARTMENT OF PATHOLOGY AND GENOMIC MEDICINE Specimen Plasma specimen Performing Organization Address City/[facility]/[place] [address] PATHOLOGY AND GENOMIC MEDICINE * ECG ED Preliminary Interpretation - NOT AN ORDER (07/13/2017 12:43 PM) Narrative Performed At Sabine Atwood MD 07/14/2017 11:39 AM ECG ED Preliminary Interpretation - Not an Order Performed by: SABINE ATWOOD Authorized by: SABINE ATWOOD ECG reviewed by ED Physician in the absence of a strike out machine operator: yes Interpretation: Interpretation: abnormal Rate: ECG rate:57 ECG rate assessment: bradycardic Rhythm: Rhythm: sinus bradycardia and A-V block Rhythm comment:1st degree AV block Ectopy: Ectopy: none QRS: QRS axis:Normal QRS intervals:Normal Conduction: Conduction: normal ST segments: ST segments:Normal T waves: T waves: normal Comments: Completed at 1348 on 07/13/17 * Urinalysis screen and microscopy, with reflex to culture (07/13/2017 12:35 PM) Specimen site Clean catch [facility] DEPARTMENT OF PATHOLOGY AND GENOMIC MEDICINE Color, UA Yellow [facility] DEPARTMENT OF PATHOLOGY AND GENOMIC MEDICINE Appearance, UA Clear [facility] DEPARTMENT OF PATHOLOGY AND GENOMIC MEDICINE Specific gravity, UA 1.013 1.001 - 1.035 [facility] DEPARTMENT OF PATHOLOGY AND GENOMIC MEDICINE pH, UA 6.0 5.0 - 8.5 [facility] DEPARTMENT OF PATHOLOGY AND GENOMIC MEDICINE Protein, UA 1+ (A) Negative [facility] DEPARTMENT OF PATHOLOGY AND GENOMIC MEDICINE Glucose, UA Negative Negative [facility] DEPARTMENT OF PATHOLOGY AND GENOMIC MEDICINE Ketones, UA Negative Negative [facility] DEPARTMENT OF PATHOLOGY AND GENOMIC MEDICINE Bilirubin, UA Negative Negative [facility] DEPARTMENT OF PATHOLOGY AND GENOMIC MEDICINE Blood, UA Negative Negative [facility] DEPARTMENT OF PATHOLOGY AND GENOMIC MEDICINE Nitrite, UA Negative Negative [facility] DEPARTMENT OF PATHOLOGY AND GENOMIC MEDICINE Urobilinogen, UA Negative <2.0 [facility] DEPARTMENT OF PATHOLOGY AND GENOMIC MEDICINE Leukocyte esterase, UA Negative Negative [facility] DEPARTMENT OF PATHOLOGY AND GENOMIC MEDICINE Epithelial cells, UA Few /HPF [facility] DEPARTMENT OF PATHOLOGY AND GENOMIC MEDICINE WBC, UA 4 (H) 0 - 1 /HPF [facility] DEPARTMENT OF PATHOLOGY AND GENOMIC MEDICINE RBC, UA 3 0 - 5 /HPF [facility] DEPARTMENT OF PATHOLOGY AND GENOMIC MEDICINE Bacteria, UA None seen None seen [facility] DEPARTMENT OF PATHOLOGY AND GENOMIC MEDICINE Yeast, UA None seen [facility] DEPARTMENT OF PATHOLOGY AND GENOMIC MEDICINE Yeast with pseudohyphae, None seen [facility] DEPARTMENT OF UA PATHOLOGY AND GENOMIC MEDICINE Hyaline casts, UA 1 /LPF [facility] DEPARTMENT OF PATHOLOGY AND GENOMIC MEDICINE Specimen Urine Performing Organization Address City/State/Zipcode Phone Number [facility] DEPARTMENT [facility] [place] [address] PATHOLOGY AND GENOMIC MEDICINE * Urine culture (07/13/2017 12:35 PM) Urine culture SEE COMMENTComment: [facility] DEPARTMENT OF Bacteriuria screen negative. PATHOLOGY AND GENOMIC MEDICINE Specimen Urine Performing Organization Address City/State/Zipcode Phone Number [facility] DEPARTMENT OF [address] [place] [address] PATHOLOGY AND GENOMIC MEDICINE after 12/22/2016 Insurance Payer Benefit Subscriber ID Type Phone Address Plan / Group [facility] MED[employer] [employer]/CAR xxxxxxxxx HMO [place] [address]
--- OUTSIDE RECORDS SUMMARY | 2018-01-06 09:35 | XMS REPORT | Clinical Summary ---
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 ZZESTIMATED GFR Routine 07/14/2017 Results [...] GFR Non Af Amer 82 mL/min/1.73 m2 [facility] DEPARTMENT OF PATHOLOGY AND GENOMIC MEDICINE GFR Af Amer >90 mL/min/1.73 m2 [facility] DEPARTMENT OF Comment: PATHOLOGY AND Chronic [...] specimen Performing Organization Address City/State/Zipcode Phone Number [facility] DEPARTMENT OF [address] [place] [address] PATHOLOGY AND GENOMIC MEDICINE * CBC with platelet and differential (07/15/2017 9:34 AM) Only the most recent of 3 results within the time period is included. WBC 6.7 4.2 - 11.0 k/uL [facility] DEPARTMENT OF PATHOLOGY AND GENOMIC MEDICINE RBC 4.64 4.04 - 5.86 m/uL [facility] DEPARTMENT OF PATHOLOGY AND GENOMIC MEDICINE HGB 14.6 13.0 - 17.3 g/dL [facility] DEPARTMENT OF PATHOLOGY AND GENOMIC MEDICINE HCT 43.8 34.0 - 45.0 % [facility] DEPARTMENT OF PATHOLOGY AND GENOMIC MEDICINE MCV 94.4 80.0 - 98.0 fL [facility] DEPARTMENT OF PATHOLOGY AND GENOMIC MEDICINE MCH 31.5 27.0 - 34.0 pg [facility] DEPARTMENT PATHOLOGY AND GENOMIC MEDICINE MCHC 33.3 31.5 - 36.5 g/dL [facility] DEPARTMENT OF PATHOLOGY AND GENOMIC MEDICINE RDW - SD 48.2 37.0 - 51.0 fL [facility] DEPARTMENT OF PATHOLOGY AND GENOMIC MEDICINE MPV 8.7 7.4 - 10.4 fL [facility] DEPARTMENT OF PATHOLOGY AND GENOMIC MEDICINE Platelet count 179 150 - 400 k/uL [facility] DEPARTMENT PATHOLOGY AND GENOMIC MEDICINE Nucleated RBC 0.00 /100 WBC [facility] DEPARTMENT OF PATHOLOGY AND GENOMIC MEDICINE Neutrophils 59.9 36.0 - 66.0 % [facility] DEPARTMENT PATHOLOGY AND GENOMIC MEDICINE Lymphocytes 26.4 24.0 - 44.0 % [facility] DEPARTMENT OF PATHOLOGY AND GENOMIC MEDICINE Monocytes 7.1 (H) 0.0 - 6.0 % [facility] DEPARTMENT OF PATHOLOGY AND GENOMIC MEDICINE Eosinophils 5.5 0.0 - 6.0 % [facility] DEPARTMENT PATHOLOGY AND GENOMIC MEDICINE Basophils 0.7 0.0 - 1.2 % [facility] PATHOLOGY AND GENOMIC MEDICINE Immature granulocytes 0.4 0.0 - 1.0 % [facility] PATHOLOGY AND GENOMIC MEDICINE Specimen Blood Performing Organization Address City/[facility]/[place] [address] PATHOLOGY AND [facility] * B natriuretic peptide (07/15/2017 9:34 AM) Only the most recent of 2 results within the time period is included. BNP 90 0 - 100 pg/mL [facility] PATHOLOGY AND GENOMIC MEDICINE Specimen Blood Performing Organization Address City/[facility]/Zipcode Phone Number [address] * Basic metabolic panel (07/15/2017 9:34 AM) Only the most recent of 3 results within the time period is included. Sodium 142 135 - 150 mEq/L [facility] PATHOLOGY AND GENOMIC MEDICINE Potassium 4.2 3.5 - 5.0 mEq/L [facility] DEPARTMENT OF PATHOLOGY AND GENOMIC MEDICINE Chloride 106 100 - 109 mEq/L [facility] DEPARTMENT OF PATHOLOGY AND GENOMIC MEDICINE CO2 28 24 - 32 mmol/L [facility] DEPARTMENT OF PATHOLOGY AND GENOMIC MEDICINE Anion gap 8 7 - 15 mEq/L [facility] DEPARTMENT OF Comment: PATHOLOGY AND Starting from June [facility] , anion gap calculation no longer incorporates potassium. Please note the change. BUN 22 (H) 7 - 18 mg/dL [facility] DEPARTMENT OF PATHOLOGY AND GENOMIC MEDICINE Creatinine 0.9 0.8 - 1.5 mg/dL [facility] DEPARTMENT OF PATHOLOGY AND GENOMIC MEDICINE Glucose 98 65 - 100 mg/dL [facility] DEPARTMENT OF PATHOLOGY AND GENOMIC MEDICINE Calcium 8.6 8.6 - 10.7 mg/dL [facility] DEPARTMENT OF PATHOLOGY AND [employer] MEDICINE Specimen Plasma specimen Performing Organization Address City/State/Zipcode Phone Number [place] [address] [place] [address] PATHOLOGY AND GENOMIC MEDICINE * CV stress [...] - Performing Organization Address City/State/Zipcode Phone Number [facility] [address] [address] [place] [address] * MRA Head Wo Contrast (07/14/2017 12:19 PM) Narrative Performed At EXAMINATION: MRA HEAD WO CONTRAST [facility] CLINICAL HISTORY: ams. Evaluate for stroke and artery stenosis COMPARISON:None. TECHNIQUE: [id number] MRA images of the ken[place] of Jones vessels were obtained with multiplanar and 3-D reconstructive algorithms. FINDINGS: There is flow in the anterior and posterior communicating arteries. There is no evidence of large vessel occlusion at the level of the ken[place]ze of [place]. The distal vertebral arteries, the basilar artery and distal internal carotid do not show significant focal stenosis. The distal right vertebral artery is dominant. IMPRESSION: Unremarkable MRA of the ken[place]ze of [place] with no significant abnormality. [facility]-[id number] Procedure Note Interface, Radiology Results 07/14/2017 12:34 PM CDT EXAMINATION: MRA HEAD WO CONTRAST CLINICAL HISTORY: ams. Evaluate for stroke and artery stenosis COMPARISON: None. TECHNIQUE: [id number] MRA images of the [place] of [place] vessels were obtained with multiplanar and 3-D reconstructive algorithms. FINDINGS: There is flow in the anterior and posterior communicating arteries. There is no evidence of large vessel occlusion at the level of the ken[place]ze of [place]. The distal vertebral arteries, the basilar artery and distal internal carotid do not show significant focal stenosis. The distal right vertebral artery is dominant. IMPRESSION: Unremarkable MRA of the ken[place] of [place] with no significant abnormality. [facility]-[id number] Performing Organization Address City/State/Zipcode Phone Number [facility] [address] [place] [address] * MRI Brain Wo Contrast (07/14/2017 12:18 [...] and sphenoid sinuses. IMPRESSION: No acute abnormality. [facility]-[id number] Procedure Note Interface, Radiology Results 07/14/2017 12:30 [...] and sphenoid sinuses. IMPRESSION: No acute abnormality. [facility]-[id number] Performing Organization Address [facility] Phone Number [facility] [address] [place] [address] * PV duplex venous lower extremity (07/14/2017 9:21 AM) Narrative Performed At EXAMINATION:US DUPLEX VENOUS LOWER EXTREMITY BILATERAL [facility] CLINICAL HISTORY: edema COMPARISON:None. TECHNIQUE:Grayscale, color Doppler, [...] is no evidence of deep venous thrombosis. [facility]-[id number] Procedure Note Interface, Radiology Results Incoming - [...] is no evidence of deep venous thrombosis. [facility]-[id number] Performing Organization Address [facility] Phone Number [facility] [address] [place] [address] * Echocardiogram complete w contrast and 3D [...] with pseudonormal filling dynamics. Performing Organization Address [facility]/Zipcode Phone Number [facility] [address] [place] [address] * T3, free (07/14/2017 5:45 AM) T3, free 2.98 2.18 - 3.98 pmol/L [facility] DEPARTMENT OF PATHOLOGY AND GENOMIC MEDICINE Specimen Plasma specimen Performing Organization Address [facility]/Zipcode Phone Number [address] [address] PATHOLOGY AND GENOMIC MEDICINE * Thyroid stimulating hormone (07/14/2017 5:45 AM) TSH 1.30 0.38 - 4.82 uIU/mL [facility] DEPARTMENT OF PATHOLOGY AND GENOMIC MEDICINE Specimen Plasma specimen Performing Organization Address [facility] Phone Number [facility] [address] [place] [address] PATHOLOGY AND GENOMIC MEDICINE * T4, free (07/14/2017 5:45 AM) T4, free 1.20 0.70 - 1.61 ng/dL [facility] DEPARTMENT OF PATHOLOGY AND GENOMIC MEDICINE Specimen Plasma specimen Performing Organization Address [facility] [place] [address] PATHOLOGY AND GENOMIC MEDICINE * Hepatic function panel (07/14/2017 5:45 AM) Only the most recent of 2 results within the time period is included. Albumin 3.4 3.2 - 5.0 g/dL [facility] DEPARTMENT OF PATHOLOGY AND GENOMIC MEDICINE Total bilirubin 0.8 0.2 - 1.2 mg/dL [facility] DEPARTMENT OF PATHOLOGY AND GENOMIC MEDICINE Bilirubin direct 0.2 0.0 - 0.4 mg/dL [facility] DEPARTMENT OF PATHOLOGY AND GENOMIC MEDICINE Alkaline phosphatase 77 30 - 120 U/L [facility] DEPARTMENT OF PATHOLOGY AND GENOMIC MEDICINE Protein 6.7 6.3 - 8.2 g/dL [facility] DEPARTMENT OF PATHOLOGY AND GENOMIC MEDICINE ALT 27 (L) 30 - 65 U/L [facility] DEPARTMENT OF PATHOLOGY AND GENOMIC MEDICINE AST 17 15 - 37 U/L [facility] DEPARTMENT OF PATHOLOGY AND GENOMIC MEDICINE Specimen Plasma specimen Performing Organization Address [facility] [place] [address] PATHOLOGY AND GENOMIC MEDICINE * Lipid panel (07/14/2017 5:45 AM) Cholesterol 166 120 - 200 mg/dL [facility] DEPARTMENT OF PATHOLOGY AND GENOMIC MEDICINE Triglycerides 81 50 - 150 mg/dL [facility] DEPARTMENT OF PATHOLOGY AND GENOMIC MEDICINE HDL cholesterol 49 40 - 60 mg/dL [facility] DEPARTMENT OF PATHOLOGY AND GENOMIC MEDICINE LDL cholesterol 123Comment: Result obtained by mg/dL [facility] DEPARTMENT OF direct LDL measurement PATHOLOGY AND GENOMIC MEDICINE Lipid panel See below [facility] DEPARTMENT OF interpretation Comment: PATHOLOGY AND Total Cholesterol GENOMIC MEDICINE (mg/dL) LDL Cholesterol (mg/dL) <200 Desirable <100 Optimal 200-239Borderline -[id number] 29Near or above optimal >=240High 130-159Borderline- high [...] specimen Performing Organization Address City/State/Zipcode Phone Number [place] [address] [address] [place] [address] PATHOLOGY AND GENOMIC MEDICINE * CT Angiogram Pe Chest (07/13/2017 11:08 PM) Narrative Performed At EXAMINATION: [facility] CT ANGIOGRAM PE CHEST CLINICAL [...] Congestive heart failure, with mild vascular congestion/edema. [facility]-[id number] Procedure Note Interface, Radiology Results Incoming - [...] Congestive heart failure, with mild vascular congestion/edema. [facility]-[id number] Performing Organization Address City/State/Zipcode Phone Number [facility] [address] [place] [address] * MRA Neck Wo Contrast (07/13/2017 6:48 PM) Narrative Performed At [facility] EXAMINATION:MRA NECK WO CONTRAST CLINICAL HISTORY:ams COMPARISON:None. TECHNIQUE: Neck MRA using 2D and 3D wrwf-ob-jdfhte technique with multi-planar MIP and 3D reconstruction. FINDINGS: The imaged bilateral cervical carotid and vertebral arterial systems appear patent without evidence of aneurysm, dissection, or significant stenosis (0% by NASCET criteria). Retropharyngeal course of portions of the bilateral cervical carotid systems. Dominant right vertebral artery. Anterior cervical spinal fusion. IMPRESSION: Unremarkable neck MRA with no significant carotid or vertebral artery stenosis. [facility]-[id number] Procedure Note Hm Interface, Radiology Results Incoming - 07/13/2017 7:02 PM CDT EXAMINATION: MRA NECK WO CONTRAST CLINICAL HISTORY: ams COMPARISON: None. TECHNIQUE: Neck MRA using 2D and 3D kntd-km-gwgupe technique with multi-planar MIP and 3D reconstruction. FINDINGS: The imaged bilateral cervical carotid and vertebral arterial systems appear patent without evidence of aneurysm, dissection, or significant stenosis (0% by NASCET criteria). Retropharyngeal course of portions of the bilateral cervical carotid systems. Dominant right vertebral artery. Anterior cervical spinal fusion. IMPRESSION: Unremarkable neck MRA with no significant carotid or vertebral artery stenosis. [id number] Performing Organization Address City/State/Zipcode Phone Number [facility] [address] [place] [address] * Troponin (07/13/2017 5:51 PM) Only the most recent of 2 results within the time period is included. Troponin <0.01 0.00 - 0.60 ng/mL [facility] DEPARTMENT OF Comment: PATHOLOGY AND 0.11 - 1.49 GENOMIC MEDICINE ng/mlMay indicate increased risk of acute coronary syndrome. >=1.5 ng/ml Consistent with acute myocardial infarction. The diagnostic value of a single normal or non-diagnostic result is questionable.Serial samples at 2-6 hour intervals are required to rule out acute myocardial injury. Specimen Plasma specimen Performing Organization Address City/[facility]/Zipcode Phone Number [place] [phone] [place] [address] PATHOLOGY AND GENOMIC MEDICINE * XR Chest 1 Vw Portable (07/13/2017 1:49 PM) Narrative Performed At EXAMINATION:XR CHEST 1 VW PORTABLE [facility] CLINICAL HISTORY:Chest Pain COMPARISON:None. IMPRESSION: 1.The cardiomediastinal silhouette is slightly enlarged. 2.Minimal linear atelectasis is present right lung base. There is no evidence pulmonary edema. There are no pleural effusions. 3.Postoperative changes are present lower cervical spine. [facility]-[id number] Procedure Note Interface, Radiology Results Incoming - 07/13/2017 2:01 PM CDT EXAMINATION: XR CHEST 1 VW PORTABLE CLINICAL HISTORY: Chest Pain COMPARISON: None. IMPRESSION: 1. The cardiomediastinal silhouette is slightly enlarged. 2. Minimal linear atelectasis is present right lung base. There is no evidence pulmonary edema. There are no pleural effusions. 3. Postoperative changes are present lower cervical spine. [facility]-[id number] Performing Organization Address [facility]/Zipcode Phone Number [facility] [address] [place] [address] * ECG 12 lead (07/13/2017 1:48 PM) Ventricular rate 57 [facility] Atrial rate 57 [facility] NH interval 228 [facility] QRSD interval 96 [facility] QT interval 448 [facility] QTC interval 436 [facility] P axis 1 66 [facility] QRS axis 1 -20 [facility] T wave axis 53 [facility] EKG impression Sinus bradycardia with 1st [facility] degree AV block-Otherwise normal ECG-No previous ECGs available- Performing Organization Address [facility] Phone Number [facility] MUSE [address] [place] [address] * Partial thromboplastin time, activated (07/13/2017 1:33 PM) PTT 27.2 23.0 - 36.0 sec [facility] DEPARTMENT OF Comment: PATHOLOGY AND PTT therapeutic range for GENOMIC MEDICINE unfractionated heparin is 61.0-112.0 seconds which corresponds to Anti-Xa 0.3-0.7 U/ml. Note:Change in Panic Value The PTT Panic Value is changing from 110 sec. to 100 sec. due to new instrumentation and reagents. Correlation studies have been performed to validate this result. Specimen Blood Performing Organization Address [facility] Phone Number [facility] DEPARTMENT [address] [place] [address] PATHOLOGY AND GENOMIC MEDICINE * Prothrombin time with INR (07/13/2017 1:33 PM) Prothrombin time 14.0 12.0 - 15.0 sec [facility] DEPARTMENT OF PATHOLOGY AND GENOMIC MEDICINE INR 1.07 0.92 - 1.12 [facility] DEPARTMENT OF Comment: PATHOLOGY AND For patients on anticoagulant GENOMIC MEDICINE therapy, reference ranges below: Indication: INR Value Treatment of Venous Thrombosis, 2.0-3.0 pulmonary emboli, or prophylaxis of a venous thrombosis, or systemic emboli. High dose, high risk patients 3.0-4.5 with mechanical valves. NOTE:INR values over 3.0 are sometimes associated with gastrointestinal hemorrhage, especially values over 4.0. Specimen Blood Performing Organization Address [facility] Phone Number [facility] OF [address] [place] [address] PATHOLOGY AND GENOMIC MEDICINE * D-dimer (07/13/2017 1:33 PM) D-dimer 0.60 (H) 0.00 - 0.40 ug/mL FEU [facility] DEPARTMENT OF Comment: PATHOLOGY AND Units [...] and malignancies. Specimen Blood Performing Organization Address [facility] Hospital[facility] [place] [address] PATHOLOGY AND GENOMIC MEDICINE * Type and screen (07/13/2017 1:33 PM) ABO grouping A [facility] DEPARTMENT OF PATHOLOGY AND GENOMIC MEDICINE Rh type POS [facility] DEPARTMENT OF PATHOLOGY AND GENOMIC MEDICINE Antibody screen (gel) NEG [facility] DEPARTMENT OF PATHOLOGY AND GENOMIC MEDICINE Specimen Blood Performing Organization Address [facility] Hospital[facility] [place] [address] PATHOLOGY AND GENOMIC MEDICINE * Lipase level (07/13/2017 1:33 PM) Lipase 56 (L) 65 - 230 U/L [facility] DEPARTMENT OF PATHOLOGY AND GENOMIC MEDICINE Specimen Plasma specimen Performing Organization Address City/[facility]/[place] [address] PATHOLOGY AND GENOMIC MEDICINE * ECG ED Preliminary Interpretation - NOT AN ORDER (07/13/2017 12:43 PM) Narrative Performed At Sabine Atwood MD 07/14/2017 11:39 AM ECG ED Preliminary Interpretation - Not an Order Performed by: SABINE ATWOOD Authorized by: SABINE ATWOOD ECG reviewed by ED Physician in the absence of a companion: yes Interpretation: Interpretation: abnormal Rate: ECG rate:57 [...] (07/13/2017 12:35 PM) Specimen site Clean catch [facility] DEPARTMENT OF PATHOLOGY AND GENOMIC MEDICINE Color, UA Yellow [facility] DEPARTMENT OF PATHOLOGY AND GENOMIC MEDICINE Appearance, UA Clear [facility] DEPARTMENT OF PATHOLOGY AND GENOMIC MEDICINE Specific gravity, UA 1.013 1.001 - 1.035 [facility] DEPARTMENT OF PATHOLOGY AND GENOMIC MEDICINE pH, UA 6.0 5.0 - 8.5 [facility] DEPARTMENT OF PATHOLOGY AND GENOMIC MEDICINE Protein, UA 1+ (A) Negative [facility] DEPARTMENT OF PATHOLOGY AND GENOMIC MEDICINE Glucose, UA Negative Negative [facility] DEPARTMENT OF PATHOLOGY AND GENOMIC MEDICINE Ketones, UA Negative Negative [facility] DEPARTMENT OF PATHOLOGY AND GENOMIC MEDICINE Bilirubin, UA Negative Negative [facility] DEPARTMENT OF PATHOLOGY AND GENOMIC MEDICINE Blood, UA Negative Negative [facility] DEPARTMENT OF PATHOLOGY AND GENOMIC MEDICINE Nitrite, UA Negative Negative [facility] DEPARTMENT OF PATHOLOGY AND GENOMIC MEDICINE Urobilinogen, UA Negative <2.0 [facility] DEPARTMENT OF PATHOLOGY AND GENOMIC MEDICINE Leukocyte esterase, UA Negative Negative [facility] DEPARTMENT OF PATHOLOGY AND GENOMIC MEDICINE Epithelial cells, UA Few /HPF [facility] DEPARTMENT OF PATHOLOGY AND GENOMIC MEDICINE WBC, UA 4 (H) 0 - 1 /HPF [facility] DEPARTMENT OF PATHOLOGY AND GENOMIC MEDICINE RBC, UA 3 0 - 5 /HPF [facility] DEPARTMENT OF PATHOLOGY AND GENOMIC MEDICINE Bacteria, UA None seen None seen [facility] DEPARTMENT OF PATHOLOGY AND GENOMIC MEDICINE Yeast, UA None seen [facility] DEPARTMENT OF PATHOLOGY AND GENOMIC MEDICINE Yeast with pseudohyphae, None seen [facility] DEPARTMENT OF UA PATHOLOGY AND GENOMIC MEDICINE Hyaline casts, UA 1 /LPF [facility] DEPARTMENT OF PATHOLOGY AND GENOMIC MEDICINE Specimen Urine Performing Organization Address City/State/Zipcode Phone Number [facility] DEPARTMENT [facility] [place] [address] PATHOLOGY AND GENOMIC MEDICINE * Urine culture (07/13/2017 12:35 PM) Urine culture SEE COMMENTComment: [facility] DEPARTMENT OF Bacteriuria screen negative. PATHOLOGY AND GENOMIC MEDICINE Specimen Urine Performing Organization Address City/State/Zipcode Phone Number [facility] DEPARTMENT OF [address] [address] PATHOLOGY AND GENOMIC MEDICINE after 12/22/2016 Insurance Payer Benefit Subscriber ID Type Phone Address Plan / Group [facility] MEDIC[facility] UNITED/CAR xxxxxxxxx H[place] [address]
--- NOTE | 2018-02-19 01:53 | Discharge Summary ---
CHIEF COMPLAINT: Lower extremity weakness. FINAL DIAGNOSES: 1. Lumbar spinal stenosis. 2. Hypertension. 3. Osteoarthritis. 4. Cervical cord compression, C7-T1. 5. Severe L3-4 spinal stenosis along with herniated nucleus pulposus with bilateral leg weakness. PROCEDURES: Dr. Manning, C7 through T1 anterior cervical diskectomy, microsurgical osteophyte resection and allograft fusion, preparation of tricortical iliac crest autografts, C7 through T1 anterior cervical plating with a [employer] CSLP plate. C7 posterior approach for bilateral decompressive laminectomy, T1 bilateral decompressive laminectomy. DISPOSITION: [facility]. Myef[age]ucs[age]-old male with known history of coronary artery disease, brought to the ER with a several week history of progressive lower extremity weakness, has caused several fallings. There was no loss of consciousness. No dizziness. Still able to ambulate with a cane. No other complaints. The patient underwent review and evaluation in the emergency room. Attempt was made for straight leg raising, patient was unable to perform. Motor activity is noted to be 2/5 bilaterally. 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 Underwent extensive x-rays and workup and evaluation in the ER, admission was made for care and treatment regarding issues of progressive weakness of lower extremities, coronary artery disease, status post right TKR, spinal stenosis. Will be requesting a neurosurgical review. Patient will continue on home medications. Requesting also a neurology consult. With admission due to the weakness in both legs, inability to not walk long distances, patient was reviewed by Dr. Chua, and her findings revealed subacute low back pain, weakness and swelling in both legs. Findings compatible with probable bilateral lumbar sacral radiculopathies. The patient was then being reviewed by neurosurgery, Dr. Manning due to the inability to walk. X-ray studies, cervical spine and lumbar spine were conducted; and with Dr. Manning's review of the x-rays, his impression was severe L3-4 spinal stenosis due to a combination of a recent disk herniation and pre-existing facet and ligamentous hypertrophy. This could account for the patient's gait disorder, although his hip flexor weakness appears to be quite out of proportion to the radiographic findings. There is concern about compression of the cord at a higher level. In view of his pre-existing deltoid weakness, will proceed with STAT MRI of the cervical spine to rule out cervical cord compression. If the cervical MRI is negative, will be proceeding with a L3-4 bilateral decompressive laminectomy and diskectomy. Patient will likely require inpatient rehab after surgeries. Further Dr. Manning's review once the MRI C-spine came back, findings confirmed cervical cord compression at C7-T1 below the level of the previous C4 through 7 fusion. 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 His lumbar stenosis is less important. Will proceed with C7 through T1 anterior posterior decompression with fusion. Will be needing inpatient rehab postop. Patient was being managed in [facility], on a cardiac diet. Patient was still having issues with weakness in the lower extremities, left greater than right. He was receiving acetaminophen. His daily medications were being continued as well. He was also given some meds for insomnia at night, was receiving morphine for pain control. His lab studies were stable. His status was reviewed by Dr. Chua as well as Dr. Manning, scheduling up for the surgical procedure by Dr. Manning. The patient underwent the surgical procedure per Dr. Manning, was still having some muscle spasms and neck pain postprocedure. This was addressed with medications. His lab studies remained stable. Vital signs remaining stable. Will need to undergo gait training as soon as possible. Postop, it was noted that his voice and swallow was intact, was moving all 4 limbs well. Plan was to remove drains on December 26 and set the patient up to transfer to inpatient rehab facility. Was beginning some rehab with Dr. Armijo. The surgical drains were removed as mentioned. Continued to have neck pain postprocedure, but is controlled with the current medications, was tolerating p.o. ambulation with a walker with and without physical therapy, and as he was continuing postop, it was noted by Dr. Armijo that the patient is still requiring needs for help with transfer and gait. Was ambulating with a walker. Discussions were being made to transfer the patient to [place] in-house rehab. Was slowly improving postprocedure, awaiting clearance to transfer per insurance. His insurance denied the patient to go to an in-house rehab. Will need to go to SNF facility, and with further case management assistance, the patient was transferred to [facility], transferred there on December 31, 2017 in stable condition. EKGs are showing sinus rhythm with a first-degree AV block, left axis deviation. Arterial Dopplers, lower extremities, negative bilaterally. Venous Dopplers bilaterally negative for evidence of DVT. Patient underwent the procedures as mentioned per Dr. Manning. Unfortunately was denied clearance for the in-house rehab facility, [facility] Will be undergoing rehab at that location with Dr. Armijo's guidance, and I will continue to monitor the patient's progress at that facility as well. They will continue on his current MARs, current diet. I will be evaluating his status routinely. Staff will be contacting me as needed. Patient will be following up with Dr. Manning outpatient per his instructions. Dictated By: VIOLA Wilson Job#: [id number]
== END 2017-12-31 20:05 | DRG 471 ==
LOC: ER 11:31 → ERHOLD 15:10 → IMCU 18:55 → OBSVTOIN 12-25 13:08 → MED/SURG 12-25 21:53
PROC: 00NW0ZZ Release Cervical Spinal Cord, Open Approach (ICD-10-PCS; 2017-12-25)
PROC: 00NX0ZZ Release Thoracic Spinal Cord, Open Approach (ICD-10-PCS; 2017-12-25)
PROC: 0RT50ZZ Resection of Cervicothoracic Vertebral Disc, Open Approach (ICD-10-PCS; 2017-12-25)
PROC: 0RG40K0 Fusion of Cervicothoracic Vertebral Joint with Nonautologous Tissue Substitute, Anterior Approach, Anterior Column, Open Approach (ICD-10-PCS; principal; 2017-12-25 09:30)
DX: M43.13 Spondylolisthesis, cervicothoracic region (principal); G82.50 Quadriplegia, unspecified; M47.13 Other spondylosis with myelopathy, cervicothoracic region; G95.89 Other specified diseases of spinal cord; R53.1 Weakness; I11.0 Hypertensive heart disease with heart failure; I50.9 Heart failure, unspecified; I25.10 Atherosclerotic heart disease of native coronary artery without angina pectoris; Z91.81 History of falling; Z96.651 Presence of right artificial knee joint; E78.5 Hyperlipidemia, unspecified; I25.2 Old myocardial infarction; Z82.3 Family history of stroke; Z83.3 Family history of diabetes mellitus; Z82.49 Family history of ischemic heart disease and other diseases of the circulatory system; Z80.8 Family history of malignant neoplasm of other organs or systems; G62.9 Polyneuropathy, unspecified
CPT/HCPCS: 36415; 70450; 71045; 72020; 72040; 72141; 72148; 77003; 80053; 81001; 82550; 82553; 83690; 83735; 83880; 84443; 84484; 85025; 85379; 85610; 85730; 87086; 88304; 88311; 93005; 93925; 93970; 97139; 99284; C1713; G0378; J0690; J1100; J2001; J2270; J2405; J7120

== ENCOUNTER → 2018-01-29 | Outpatient (CLI) | payer MEDICARE ==
--- NOTE | 2018-01-29 12:49 | Diagnostic Imaging Report ---
EXAMINATION: Cervical spine, 5 views. CLINICAL HISTORY: Cervical disc herniation, evaluate fusion status. COMPARISON: C-spine 3 views 12/26/2017 FINDINGS: Bones: Patient is status post anterior fusion of C4-5 and C7-T1 with anterior plate and screws. No significant interval bony fusion when compared to prior exam. There is bony fusion at C5-6 and C6-7 Marked osteopenia predominantly at C3 through T1 No displaced fracture. Osseous alignment is within normal limits. No significant listhesis on flexion and extension views. Joints: Degenerative disc changes at C3-4. Soft tissues: The soft tissues are unremarkable. IMPRESSION: 1. Stable postsurgical changes at C4-C5 and C7-T1. No significant interval bony fusion when compared to prior exam. No significant listhesis on flexion and extension views. The staff physician below has personally reviewed this exam on the date of dictation. Signed by: Dr. Brady Faulkner M.D. on 01/29/2018 12:45 PM
== END ==
LOC: RAD 11:25
PROVIDERS: ATTEND Neurological Surgery
DX: M50.20 Other cervical disc displacement, unspecified cervical region (principal); Z98.1 Arthrodesis status
CPT/HCPCS: 72050

== ENCOUNTER 2018-06-08 10:14 | Emergency (ER) | payer MEDICARE, OTHER ==
[~2018-06-08] VITALS: Ht 177.8 cm; Wt 104.8 kg
--- OUTSIDE RECORDS SUMMARY | 2018-06-08 10:22 | XMS REPORT | Clinical Summary ---
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 Active pravastatin (PRAVACHOL) Take 20 mg by 0 20 MG tablet mouth daily. 07/15/2017 Discontinued metoprolol tartrate Take 25 mg by 0 (LOPRESSOR) 25 mg tablet mouth 2 (two) times a day. 10/13/2017 metoprolol tartrate Take 0.5 30 tablet 2 (LOPRESSOR) 25 mg tablet tablets (12.5 8 mg total) by mouth 2 (two) times a day for 90 days. 10/14/2017 NIFEdipine XL (PROCARDIA Take 1 tablet 30 tablet 2 XL) 30 MG 24 hr tablet (30 mg total) 8 by mouth daily for 90 days. 08/15/2017 aspirin (ECOTRIN) 81 MG Take 1 tablet 30 tablet 0 enteric coated tablet (81 mg total) 8 by mouth daily for 30 days. Active Problems Problem Noted Date Chest pain 07/13/2017 Encounters Care Team Description Date Type Specialty Michelle Barr, PharmD 07/16/2017 Patient Quality Outreach Sabine Atwood MD Lorenzo, Gabrielle Jack MD Chest pain, unspecified type (Primary Dx); Dizziness; Acute diastolic congestive heart failure 07/13/2017 Emergency General Internal Medicine - 07/15/2017 after 06/07/2017 Social History Date Tobacco Use Types Packs/Day Years Used Never Smoker Smokeless Tobacco: Never Used Alcohol Use Drinks/Week oz/Week Comments No Sex Assigned at Date Recorded Not on file Industry Job Start Date Occupation Not on file Not on file Not on file Travel End Travel History Travel Start No recent travel history available. Last Filed Vital Signs Time Taken Vital Sign Reading 07/15/2017 8:04 AM CDT Blood Pressure 140/62 07/15/2017 8:04 AM CDT Pulse 73 07/15/2017 8:04 AM CDT Temperature 36.9 C (98.5 F) 07/15/2017 8:04 AM CDT Respiratory Rate 16 07/15/2017 8:04 AM CDT Oxygen Saturation 95% - Inhaled Oxygen - Concentration 07/13/2017 12:17 PM CDT Weight 109 kg (240 lb) 07/13/2017 12:17 PM CDT Height 177.8 cm (5' 10") 07/13/2017 12:17 PM CDT Body Mass Index 34.44 Plan of Treatment Health Maintenance Due Date Last Done Comments SHINGLES VACCINES (#1) 1990 65+ PNEUMOCOCCAL VACCINE 2005 (1 of 2 - PCV13) PNEUMOCOCCAL 2005 POLYSACCHARIDE VACCINE AGE 65 AND OVER INFLUENZA VACCINE 10/22/2017 Procedures Comments Procedure Name Priority Date/Time Associated Diagnosis ZZESTIMATED GFR STAT 07/15/2017 9:34 AM CDT HC COMPLETE BLD COUNT STAT 07/15/2017 W/AUTO DIFF 9:34 AM CDT B NATRIURETIC PEPTIDE STAT 07/15/2017 9:34 AM CDT BASIC METABOLIC PANEL STAT 07/15/2017 9:34 AM CDT CV STRESS TEST NUCLEAR Routine 07/14/2017 CARDIO 12:49 PM CDT MRA HEAD WO CONTRAST STAT 07/14/2017 12:19 PM CDT MRI BRAIN WO CONTRAST STAT 07/14/2017 12:18 PM CDT US DUPLEX VENOUS LOWER STAT 07/14/2017 EXTREMITY BILATERAL 9:21 AM CDT ECHOCARDIOGRAM 2D Routine 07/14/2017 COMPLETE W MMODE SPECTRAL 9:13 AM CDT COLOR DOPPLER (74160) ZZESTIMATED GFR Routine 07/14/2017 5:45 AM CDT THYROID STIMULATING Routine 07/14/2017 HORMONE 5:45 AM CDT T4, FREE Routine 07/14/2017 5:45 AM CDT T3, FREE Routine 07/14/2017 5:45 AM CDT LIPID PANEL Routine 07/14/2017 5:45 AM CDT HEPATIC FUNCTION PANEL Routine 07/14/2017 5:45 AM CDT HC COMPLETE BLD COUNT Routine 07/14/2017 W/AUTO DIFF 5:45 AM CDT BASIC METABOLIC PANEL Routine 07/14/2017 5:[address] ANGIOGRAM PE CHEST STAT 07/13/2017 11:08 PM CDT MRA NECK WO CONTRAST STAT 07/13/2017 6:48 PM CDT TROPONIN Timed 07/13/2017 5:51 PM CDT XR CHEST 1 VW PORTABLE STAT 07/13/2017 1:49 PM CDT ECG 12-LEAD STAT 07/13/2017 1:48 PM CDT D-DIMER STAT 07/13/2017 1:33 PM CDT ZZESTIMATED GFR STAT 07/13/2017 1:33 PM CDT B NATRIURETIC PEPTIDE STAT 07/13/2017 1:33 PM CDT TROPONIN STAT 07/13/2017 1:33 PM CDT LIPASE LEVEL STAT 07/13/2017 1:33 PM CDT HEPATIC FUNCTION PANEL STAT 07/13/2017 1:33 PM CDT TYPE AND SCREEN Routine 07/13/2017 1:33 PM CDT PARTIAL THROMBOPLASTIN STAT 07/13/2017 TIME (PTT) 1:33 PM CDT PROTHROMBIN TIME WITH INR STAT 07/13/2017 1:33 PM CDT BASIC METABOLIC PANEL STAT 07/13/2017 1:33 PM CDT HC COMPLETE BLD COUNT STAT 07/13/2017 W/AUTO DIFF 1:33 PM CDT ECG ED PRELIMINARY Routine 07/13/2017 INTERPRETATION 12:43 PM CDT URINALYSIS SCREEN AND STAT 07/13/2017 MICROSCOPY, WITH REFLEX 12:35 PM CDT TO CULTURE URINE CULTURE STAT 07/13/2017 12:35 PM CDT after 06/07/2017 Results * Estimated GFR (07/15/2017 9:34 AM CDT) Only the most recent of 3 results within the time period is included. GFR Non Af Amer 82 mL/min/1.73 m2 [facility] OF [facility]OLOGY AND GENOMIC MEDICINE GFR Af Amer >90 mL/min/1.73 m2 [facility] OF Comment: PATHOLOGY AND Chronic kidney [...] specimen Performing Organization Address City/State/Zipcode Phone Number [facility] OF [address] [place] [address] PATHOLOGY AND GENOMIC MEDICINE * CBC with platelet and differential (07/15/2017 9:34 AM CDT) Only the most recent of 3 results within the time period is included. WBC 6.7 4.2 - 11.0 k/uL [facility] OF [facility]OLOGY AND GENOMIC MEDICINE RBC 4.64 4.04 - 5.86 m/uL [facility] OF PATHOLOGY AND GENOMIC MEDICINE HGB 14.6 13.0 - 17.3 g/dL [facility] OF PATHOLOGY AND GENOMIC MEDICINE HCT 43.8 34.0 - 45.0 % [facility] OF PATHOLOGY AND GENOMIC MEDICINE MCV 94.4 80.0 - 98.0 fL [facility] OF PATHOLOGY AND GENOMIC MEDICINE MCH 31.5 27.0 - 34.0 pg [facility] PATHOLOGY AND GENOMIC MEDICINE MCHC 33.3 31.5 - 36.5 g/dL [facility] OF PATHOLOGY AND GENOMIC MEDICINE RDW - SD 48.2 37.0 - 51.0 [facility] DEPARTMENT OF PATHOLOGY AND GENOMIC MEDICINE MPV 8.7 7.4 - 10.4 fL [facility] OF [facility]OLOGY AND GENOMIC MEDICINE Platelet count 179 150 - 400 k/uL [facility] PATHOLOGY AND GENOMIC MEDICINE Nucleated RBC 0.00 /100 WBC [facility] OF PATHOLOGY AND GENOMIC MEDICINE Neutrophils 59.9 36.0 - 66.0 % [facility] OF PATHOLOGY AND GENOMIC MEDICINE Lymphocytes 26.4 24.0 - 44.0 % [facility] OF PATHOLOGY AND GENOMIC MEDICINE Monocytes 7.1 (H) 0.0 - 6.0 % [facility] OF PATHOLOGY AND GENOMIC MEDICINE Eosinophils 5.5 0.0 - 6.0 % [facility] PATHOLOGY AND GENOMIC MEDICINE Basophils 0.7 0.0 - 1.2 % [facility] PATHOLOGY AND GENOMIC MEDICINE Immature granulocytes 0.4 0.0 - 1.0 % [facility] PATHOLOGY AND GENOMIC MEDICINE Specimen Blood Performing Organization Address City/[facility]/[place] [address] PATHOLOGY AND [facility] MEDICINE * B natriuretic peptide (07/15/2017 9:34 AM CDT) Only the most recent of 2 results within the time period is included. BNP 90 0 - 100 pg/mL [facility] PATHOLOGY AND GENOMIC MEDICINE Specimen Blood Performing Organization Address City/[facility]/[place] [address] PATHOLOGY [facility] [employer] [facility] * Basic metabolic panel (07/15/2017 9:34 AM CDT) Only the most recent of 3 results within the time period is included. Sodium 142 135 - 150 mEq/L [facility] PATHOLOGY AND GENOMIC MEDICINE Potassium 4.2 3.5 - 5.0 mEq/L [facility] OF PATHOLOGY AND GENOMIC MEDICINE Chloride 106 100 - 109 mEq/L [facility] OF PATHOLOGY AND GENOMIC MEDICINE CO2 28 24 - 32 mmol/L [facility] PATHOLOGY AND GENOMIC MEDICINE Anion gap 8 7 - 15 mEq/L [facility] OF Comment: PATHOLOGY AND Starting from June [facility] MED[facility]INE , anion gap calculation no longer incorporates potassium. Please note the change. BUN 22 (H) 7 - 18 mg/dL [facility] OF PATHOLOGY AND GENOMIC MEDICINE Creatinine 0.9 0.8 - 1.5 mg/dL [facility] OF PATHOLOGY AND GENOMIC MEDICINE Glucose 98 65 - 100 mg/dL [facility] OF PATHOLOGY AND GENOMIC MEDICINE Calcium 8.6 8.6 - 10.7 mg/dL [facility] OF PATHOLOGY AND GENOMIC MEDICINE Specimen Plasma specimen Performing Organization Address City/State/Zipcode Phone Number [place] [address] [place] [address] PATHOLOGY AND GENOMIC MEDICINE * CV stress test (07/14/2017 12:49 PM CDT) Resting HR 59 H MUSE Resting BP [...] - Performing Organization Address City/State/Zipcode Phone Number [facility] MUSE [address] [place] [address] * MRA Head Wo Contrast (07/14/2017 12:19 PM CDT) Narrative Performed At EXAMINATION: MRA HEAD WO CONTRAST [facility] CLINICAL HISTORY: ams. Evaluate for stroke and artery stenosis COMPARISON:None. TECHNIQUE: [id number] MRA images of the [place] vessels were obtained with multiplanar and 3-D reconstructive algorithms. FINDINGS: There is flow in the anterior and posterior communicating arteries. There is no evidence of large vessel occlusion at the level of the [place]. The distal vertebral arteries, the basilar artery and distal internal carotid do not show significant focal stenosis. The distal right vertebral artery is dominant. IMPRESSION: Unremarkable MRA of the [place] with no significant abnormality. [facility]-[id number] Procedure Note Interface, Radiology Results Incoming - 07/14/2017 12:34 PM CDT EXAMINATION: MRA HEAD WO CONTRAST CLINICAL HISTORY: ams. Evaluate for stroke and artery stenosis COMPARISON: None. TECHNIQUE: [id number] MRA images of the [place] vessels were obtained with multiplanar and 3-D reconstructive algorithms. FINDINGS: There is flow in the anterior and posterior communicating arteries. There is no evidence of large vessel occlusion at the level of the [place]. The distal vertebral arteries, the basilar artery and distal internal carotid do not show significant focal stenosis. The distal right vertebral artery is dominant. IMPRESSION: Unremarkable MRA of the [place] with no significant abnormality. [facility]-[id number] Performing Organization Address City/State/Zipcode Phone Number [facility] [address] [place] [address] * MRI Brain Wo Contrast (07/14/2017 12:18 PM CDT) Narrative Performed At EXAMINATION:MRI BRAIN WO CONTRAST [...] and sphenoid sinuses. IMPRESSION: No acute abnormality. [facility]-[id number] Procedure Note Interface, Radiology Results Incoming - 07/14/2017 12:30 PM CDT EXAMINATION: MRI BRAIN [...] and sphenoid sinuses. IMPRESSION: No acute abnormality. [facility]-[id number] Performing Organization Address [facility] Phone Number [facility] [address] [place] [address] * PV duplex venous lower extremity (07/14/2017 9:21 AM CDT) Narrative Performed At EXAMINATION:US DUPLEX VENOUS LOWER EXTREMITY BILATERAL [facility] CLINICAL HISTORY: edema COMPARISON:None. TECHNIQUE:Grayscale, color Doppler, [...] is no evidence of deep venous thrombosis. [facility]-[id number] Procedure Note Interface, Radiology Results Incoming - [...] is no evidence of deep venous thrombosis. [facility]-[id number] Performing Organization Address [facility] Phone Number [facility] [address] [place] [address] * Echocardiogram complete w contrast and 3D if needed (07/14/2017 9:13 AM CDT) Velocity Ratio (V1/V2) 0.88 m/s [facility] [...] with pseudonormal filling dynamics. Performing Organization Address City/[facility]/Zipcode Phone Number [facility] [address] [place] [address] * T3, free (07/14/2017 5:45 AM CDT) T3, free 2.98 2.18 - 3.98 pmol/L [facility] OF PATHOLOGY AND GENOMIC MEDICINE Specimen Plasma specimen Performing Organization Address City/[facility]/Zipcode Phone Number [facility] OF [facility] [address] [place] [address] PATHOLOGY AND GENOMIC MEDICINE * Thyroid stimulating hormone (07/14/2017 5:45 AM CDT) TSH 1.30 0.38 - 4.82 uIU/mL [facility] OF PATHOLOGY AND GENOMIC MEDICINE Specimen Plasma specimen Performing Organization Address City/[facility] Phone Number [facility] [address] [facility] [place] [address] PATHOLOGY AND GENOMIC MEDICINE * T4, free (07/14/2017 5:45 AM CDT) T4, free 1.20 0.70 - 1.61 ng/dL [facility] OF PATHOLOGY AND GENOMIC MEDICINE Specimen Plasma specimen Performing Organization Address City/[facility] Phone Number [address] [place] [place] [address] PATHOLOGY AND GENOMIC MEDICINE * Hepatic function panel (07/14/2017 5:45 AM CDT) Only the most recent of 2 results within the time period is included. Albumin 3.4 3.2 - 5.0 g/dL [facility] OF PATHOLOGY AND GENOMIC MEDICINE Total bilirubin 0.8 0.2 - 1.2 mg/dL [facility] OF PATHOLOGY AND GENOMIC MEDICINE Bilirubin direct 0.2 0.0 - 0.4 mg/dL [facility] OF PATHOLOGY AND GENOMIC MEDICINE Alkaline phosphatase 77 30 - 120 U/L [facility] OF PATHOLOGY AND GENOMIC MEDICINE Protein 6.7 6.3 - 8.2 g/dL [facility] OF PATHOLOGY AND GENOMIC MEDICINE ALT 27 (L) 30 - 65 U/L [facility] PATHOLOGY AND GENOMIC MEDICINE AST 17 15 - 37 U/L [facility] OF PATHOLOGY AND GENOMIC MEDICINE Specimen Plasma specimen Performing Organization Address City/[facility] Phone Number [place] [address] [address] [id number] PATHOLOGY AND GENOMIC MEDICINE * Lipid panel (07/14/2017 5:45 AM CDT) Cholesterol 166 120 - 200 mg/dL [facility] OF PATHOLOGY AND GENOMIC MEDICINE Triglycerides 81 50 - 150 mg/dL [facility] OF PATHOLOGY AND GENOMIC MEDICINE HDL cholesterol 49 40 - 60 mg/dL [facility] OF PATHOLOGY AND GENOMIC MEDICINE LDL cholesterol 123Comment: Result obtained by mg/dL [facility] OF direct LDL measurement PATHOLOGY AND GENOMIC MEDICINE Lipid panel See below [facility] OF interpretation Comment: PATHOLOGY AND Total Cholesterol GENOMIC MEDICINE (mg/dL) LDL Cholesterol (mg/dL) <200 Desirable <100 Optimal 200-239Borderline -[id number] or above optimal >=240High 130-159Borderline- high [...] specimen Performing Organization Address City/State/Zipcode Phone Number [facility] OF [facility] [place] [address] PATHOLOGY AND GENOMIC MEDICINE * CT Angiogram Pe Chest (07/13/2017 11:08 PM CDT) Narrative Performed At EXAMINATION: [facility] CT ANGIOGRAM PE CHEST CLINICAL HISTORY: [...] Congestive heart failure, with mild vascular congestion/edema. [facility]-[id number] Procedure Note Hm Interface, Radiology Results Incoming - 07/13/2017 11:24 [...] Congestive heart failure, with mild vascular congestion/edema. [facility]-[id number] Performing Organization Address City/State/Zipcode Phone Number [facility] [address] [place] [address] * MRA Neck Wo Contrast (07/13/2017 6:48 PM CDT) Narrative Performed At [facility] EXAMINATION:MRA NECK WO CONTRAST CLINICAL HISTORY:ams COMPARISON:None. TECHNIQUE: Neck MRA using 2D and 3D [id number] technique with multi-planar MIP and 3D reconstruction. FINDINGS: The imaged bilateral cervical carotid and vertebral arterial systems appear patent without evidence of aneurysm, dissection, or significant stenosis (0% by NASCET criteria). Retropharyngeal course of portions of the bilateral cervical carotid systems. Dominant right vertebral artery. Anterior cervical spinal fusion. IMPRESSION: Unremarkable neck MRA with no significant carotid or vertebral artery stenosis. [facility][id number] Procedure Note Interface, Radiology Results Incoming - 07/13/2017 7:02 PM CDT EXAMINATION: MRA NECK WO CONTRAST CLINICAL HISTORY: ams COMPARISON: None. TECHNIQUE: Neck MRA using 2D and 3D [id number] technique with multi-planar MIP and 3D reconstruction. FINDINGS: The imaged bilateral cervical carotid and vertebral arterial systems appear patent without evidence of aneurysm, dissection, or significant stenosis (0% by NASCET criteria). Retropharyngeal course of portions of the bilateral cervical carotid systems. Dominant right vertebral artery. Anterior cervical spinal fusion. IMPRESSION: Unremarkable neck MRA with no significant carotid or vertebral artery stenosis. [facility]-[id number] Performing Organization Address City/[facility]/Zipcode Phone Number [facility] [address] [place] [address] * Troponin (07/13/2017 5:51 PM CDT) Only the most recent of 2 results within the time period is included. Troponin <0.01 0.00 - 0.60 ng/mL [facility] OF Comment: PATHOLOGY AND 0.11 - 1.49 GENOMIC MEDICINE ng/mlMay indicate increased risk of acute coronary syndrome. >=1.5 ng/ml Consistent with acute myocardial infarction. The diagnostic value of a single normal or non-diagnostic result is questionable.Serial samples at 2-6 hour intervals are required to rule out acute myocardial injury. Specimen Plasma specimen Performing Organization Address City/State/Zipcode Phone Number [facility] [place] [address] PATHOLOGY AND GENOMIC MEDICINE * XR Chest 1 Vw Portable (07/13/2017 1:49 PM CDT) Narrative Performed At EXAMINATION:XR CHEST 1 VW PORTABLE [facility] CLINICAL HISTORY:Chest Pain COMPARISON:None. IMPRESSION: 1.The cardiomediastinal silhouette is slightly enlarged. 2.Minimal linear atelectasis is present right lung base. There is no evidence pulmonary edema. There are no pleural effusions. 3.Postoperative changes are present lower cervical spine. [facility]-[id number] Procedure Note Interface, Radiology Results Incoming - 07/13/2017 2:01 PM CDT EXAMINATION: XR CHEST 1 VW PORTABLE CLINICAL HISTORY: Chest Pain COMPARISON: None. IMPRESSION: 1. The cardiomediastinal silhouette is slightly enlarged. 2. Minimal linear atelectasis is present right lung base. There is no evidence pulmonary edema. There are no pleural effusions. 3. Postoperative changes are present lower cervical spine. [facility]-[id number] Performing Organization Address [facility] Phone Number [facility] [address] [place] [address] * ECG 12 lead (07/13/2017 1:48 PM CDT) Ventricular rate 57 [facility] Atrial rate 57 [facility] UT interval 228 [facility] QRSD interval 96 [facility] QT interval 448 [facility] QTC interval 436 [facility] P axis 1 66 [facility] QRS axis 1 -20 [facility] T wave axis 53 [facility] EKG impression Sinus bradycardia with 1st [facility] degree AV block-Otherwise normal ECG-No previous ECGs available- Performing Organization Address [facility] Phone Number [facility] [address] [place] [address] * Partial thromboplastin time, activated (07/13/2017 1:33 PM CDT) PTT 27.2 23.0 - 36.0 sec [facility] OF Comment: PATHOLOGY AND PTT therapeutic range for GENOMIC MEDICINE unfractionated heparin is 61.0-112.0 seconds which corresponds to Anti-Xa 0.3-0.7 U/ml. Note:Change in Panic Value The PTT Panic Value is changing from 110 sec. to 100 sec. due to new instrumentation and reagents. Correlation studies have been performed to validate this result. Specimen Blood Performing Organization Address [facility] Phone Number [facility] OF [address] [place] [address] PATHOLOGY AND GENOMIC MEDICINE * Prothrombin time with INR (07/13/2017 1:33 PM CDT) Prothrombin time 14.0 12.0 - 15.0 sec [facility] OF PATHOLOGY AND GENOMIC MEDICINE INR 1.07 0.92 - 1.12 [facility] OF Comment: PATHOLOGY AND For patients on anticoagulant GENOMIC MEDICINE therapy, reference ranges below: Indication: INR Value Treatment of Venous Thrombosis, 2.0-3.0 pulmonary emboli, or prophylaxis of a venous thrombosis, or systemic emboli. High dose, high risk patients 3.0-4.5 with mechanical valves. NOTE:INR values over 3.0 are sometimes associated with gastrointestinal hemorrhage, especially values over 4.0. Specimen Blood Performing Organization Address [facility] [place] [address] PATHOLOGY AND GENOMIC MEDICINE * D-dimer (07/13/2017 1:33 PM CDT) D-dimer 0.60 (H) 0.00 - 0.40 ug/mL FEU [facility] OF Comment: PATHOLOGY AND Units are [...] and malignancies. Specimen Blood Performing Organization Address [facility] [place] [address] PATHOLOGY AND [employer] MEDICINE * Type and screen (07/13/2017 1:33 PM CDT) ABO grouping A [facility] OF PATHOLOGY AND GENOMIC MEDICINE Rh type POS [facility] OF PATHOLOGY AND GENOMIC MEDICINE Antibody screen (gel) NEG [facility] OF PATHOLOGY AND GENOMIC MEDICINE Specimen Blood Performing Organization Address [facility] [place] [address] PATHOLOGY AND [employer] MEDICINE * Lipase level (07/13/2017 1:33 PM CDT) Lipase 56 (L) 65 - 230 U/L [facility] OF PATHOLOGY AND GENOMIC MEDICINE Specimen Plasma specimen Performing Organization Address [facility] [place] [address] PATHOLOGY AND GENOMIC MEDICINE * ECG ED Preliminary Interpretation - NOT AN ORDER (07/13/2017 12:43 PM CDT) Narrative Performed At Sabine Atwood MD 07/14/2017 11:39 AM ECG ED Preliminary Interpretation - Not an Order Performed by: SABINE ATWOOD Authorized by: SABINE ATWOOD ECG reviewed by ED Physician in the absence of a ultrasound technol: yes Interpretation: Interpretation: abnormal Rate: ECG rate:57 ECG rate assessment: bradycardic Rhythm: Rhythm: sinus bradycardia and A-V block Rhythm comment:1st degree AV block Ectopy: Ectopy: none QRS: QRS axis:Normal QRS intervals:Normal Conduction: Conduction: normal ST segments: ST segments:Normal T waves: T waves: normal Comments: Completed at 1348 on 07/13/17 * Urinalysis screen and microscopy, with reflex to culture (07/13/2017 12:35 PM CDT) Specimen site Clean catch [facility] Color, UA Yellow [facility] Appearance, UA Clear [facility] Specific gravity, UA 1.013 1.001 - 1.035 [facility] [place] [facility] pH, UA 6.0 5.0 - 8.5 [facility] [place] [facility] Protein, UA 1+ (A) Negative [facility] [place] [facility] Glucose, UA Negative Negative [facility] Ketones, UA Negative Negative [facility] Bilirubin, UA Negative Negative [facility] [place] Blood, UA Negative Negative [facility] Nitrite, UA Negative Negative [facility] Urobilinogen, UA Negative <2.0 [facility] [place] Leukocyte esterase, UA Negative Negative [facility] [place] Epithelial cells, UA Few /HPF [facility] [place] WBC, UA 4 (H) 0 - 1 /HPF [facility] [place] RBC, UA 3 0 - 5 /HPF [facility] [place] Bacteria, UA None seen None seen [facility] [place] Yeast, UA None seen [facility] [place] Yeast with pseudohyphae, None seen [facility] [place] Hyaline casts, UA 1 /LPF [facility] Specimen Urine Performing Organization Address City/State/Zipcode Phone Number [place] [phone] [place] [address] PATHOLOGY AND GENOMIC MEDICINE * Urine culture (07/13/2017 12:35 PM CDT) Urine culture SEE COMMENTComment: [facility] Bacteriuria screen negative. PATHOLOGY AND GENOMIC MEDICINE Specimen Urine Performing Organization Address City/State/Zipcode Phone Number [facility] [address] [place] [address] PATHOLOGY AND GENOMIC MEDICINE after 06/07/2017 Insurance Payer Benefit Subscriber ID Type Phone Address Plan / Group [employer] xxxxxxxxx [facility] MEDICARE (Home) [place] [address] Advance Directives Patient has advance care planning documents on file. For more information, soco navarrete contact: Marlon Alaniz [address] [place] [address]
[2018-06-08 12:04] LABS: STREPTOCOCCUS GRP A ANTIGEN NEGATIVE (NEGATIVE)
[2018-06-08 12:14] LABS: BASOPHILS % 0.3 % (0.0-1.0); EOSINOPHILS # (AUTO) 0.2 (0.0-0.4); EOSINOPHILS % 1.6 % (0.0-6.0); HEMATOCRIT 44.5 % (38.2-49.6); HEMOGLOBIN 14.5 g/dL (14.0-18.0); LYMPHOCYTES # (AUTO) 1.5 (1.0-3.2); LYMPHOCYTES % 12.6 % (18.0-39.1); MEAN CORPUSCULAR HEMOGLOBIN 30.7 pg (28-32); MEAN CORPUSCULAR HGB CONC 32.6 g/dL (31-35); MEAN CORPUSCULAR VOLUME 94.1 fL (81-99); MONOCYTES # (AUTO) 0.8 (0.2-0.8); MONOCYTES % 6.8 % (4.4-11.3); NEUTROPHILS # (AUTO) 9.1 (2.1-6.9); NEUTROPHILS % 77.8 % (38.7-80.0); PLATELET COUNT 269 x10e3/uL (140-360); RED BLOOD COUNT 4.73 x10e6/uL (4.3-5.7)
[2018-06-08 12:15] LABS: INFLUENZAE A&B ANTIGEN (RAPID) NEGATIVE (NEGATIVE)
[2018-06-08 12:33] LABS: ALANINE AMINOTRANSFERASE 32 IU/L (0-55); ALBUMIN 3.1 g/dL (3.5-5.0); ALBUMIN/GLOBULIN RATIO 0.8 (0.8-2.0); ALKALINE PHOSPHATASE 90 IU/L (40-150); ANION GAP 14.2 mmol/L (8-16); BLOOD UREA NITROGEN 17 mg/dL (7-26); BUN/CREATININE RATIO 22 (6-25); CARBON DIOXIDE 27 mmol/L (22-29); CHLORIDE 105 mmol/L (98-107); CREATININE, SERUM 0.77 mg/dL (0.72-1.25); EST GLOMERULAR FILTRATION RATE > 60 ML/MIN (60-); GLUCOSE 86 mg/dL (74-118); POTASSIUM 4.2 mmol/L (3.5-5.1); SODIUM 142 mmol/L (136-145)
--- NOTE | 2018-06-08 12:39 | Diagnostic Imaging Report ---
EXAM: CHEST SINGLE (PORTABLE), AP Portable DATE: 06/08/2018 Time stamp on exam: 11:32 AM INDICATION: Flulike symptoms COMPARISON: 12/23/2017 FINDINGS: LINES/TUBES: Metallic plate overlies the lower cervical spine. LUNGS: Mild pulmonary vascular congestion. PLEURA: No effusions or pneumothorax. HEART AND MEDIASTINUM: Heart is prominent. BONES AND SOFT TISSUES: No acute findings. IMPRESSION: Cardiac prominence with mild pulmonary vascular congestion. Signed by: Dr. Ollie Blake DO on 06/08/2018 12:36 PM
== END 2018-06-08 14:45 | disposition home or self-care (01) ==
LOC: ER 10:14
DX: R50.9 Fever, unspecified (principal); R05 Cough; J20.9 Acute bronchitis, unspecified
CPT/HCPCS: 36415; 71045; 80053; 83518; 85025; 87070; 87400; 99284